=== PATIENT | male | born 1965 | race Caucasian/White ===

== ENCOUNTER 2017-01-04 18:21 | Observation (INO) | payer MEDICAID ==
[~2017-01-04] VITALS: Ht 190.5 cm; Wt 137.0 kg
[~2017-01-04 18:21] MED LIST: ARIP10TA13 PO; ARIP2TAB PO; BENZ1TAB61 PO; BENZ2AMP4; CITA10TA4 PO; CLON1TAB PO; HALO0.5T PO; HALO5AMP3 IM; IBUP800T PO; METF500T4 PO; OLAN10TA9 PO; OLAN2.5T3 PO; OLAN20TA5 PO; OLAN7.5T3 PO; PALI3TAB2 PO; QUET100T4 PO; RISP0.5T18 PO; RISP1TAB45 PO; RISP2TAB35 PO; RISP4TAB34 PO; SERT100T PO; SERT100T5 PO; SERT25TA PO; SIMV20TA3 PO; TRAZ100T15 PO; TRAZ150T68 PO; ZIPR20CA2 PO
[2017-01-04] MEDS ORDERED: CITA10TA8 PO (18:42)
[2017-01-04 19:09] LABS: DAU SCREEN DISCLAIMER
[2017-01-04 19:26] LABS: ACETAMINOPHEN < 2 mcg/mL (10-30)
[2017-01-04 20:54] LABS: HEMOGLOBIN 13.6 g/dL (13.7-18.0)
[2017-01-04 20:59] LABS: BLOOD UREA NITROGEN 12 mg/dL (7-18)
[2017-01-04] MEDS ORDERED: BISACODYL 10 MG SUPP PR PRN (22:30)
[2017-01-04] MEDS ORDERED: ONDANSETRON ODT 4 MG PO PRN (22:30)
[2017-01-04] MEDS ORDERED: DOCUSATE 100 MG CAPSULE PO PRN (22:30)
[2017-01-04] MEDS ORDERED: POLYETHYLENE GLYCOL 17 GM PACKET PO PRN (22:30)
[2017-01-04 22:37] VITALS: BP 150/78
[2017-01-04] MEDS: metFORMIN 500 MG TABLET PO SCH (23:00)
[2017-01-04] MEDS: TRAZODONE 150MG TABLET PO SCH (23:30)
[2017-01-04] MEDS: SIMVASTATIN 20 MG TABLET PO SCH (23:30)
[2017-01-05] MEDS: TRAZODONE 150MG TABLET PO SCH ×2 (02:07→20:27)
[2017-01-05] MEDS: SIMVASTATIN 20 MG TABLET PO SCH ×2 (02:08→20:27)
[2017-01-05 08:01] VITALS: BP 162/76
[2017-01-05] MEDS: OLANZAPINE 10 MG TABLET PO SCH (08:13)
[2017-01-05] MEDS ORDERED: TRAZODONE 150MG TABLET PO SCH ×2 (09:00→21:00)
[2017-01-05] MEDS ORDERED: HYDROCORTISONE CRM 0.5%, 30GM TP SCH (09:00)
[2017-01-05] MEDS ORDERED: IBUPROFEN 200 MG TABLET PO PRN (13:00)
[2017-01-05 19:18] VITALS: BP 151/76
[2017-01-05] MEDS: metFORMIN 500 MG TABLET PO SCH (20:26)
[2017-01-05] MEDS: HYDROCORTISONE OINT 0.5%, 30GM TP SCH (21:00)
[2017-01-05] MEDS ORDERED: SIMVASTATIN 20 MG TABLET PO SCH ×2 (21:00)
[2017-01-05] MEDS ORDERED: HYDROCORTISONE OINT 0.5%, 30GM TP SCH (21:00)
[2017-01-06 07:36] VITALS: BP 134/79
[2017-01-06] MEDS: HYDROCORTISONE OINT 0.5%, 30GM TP SCH ×2 (08:25→09:00)
[2017-01-06] MEDS: metFORMIN 500 MG TABLET PO SCH ×2 (08:25→16:42)
[2017-01-06] MEDS: OLANZAPINE 10 MG TABLET PO SCH (08:25)
[2017-01-06] MEDS ORDERED: LORazepam 2 MG/ML, 1ML IM ONE (09:00)
[2017-01-06] MEDS: LORazepam 2 MG/ML, 1ML IM PRN (16:58)
[2017-01-06 19:30] VITALS: BP 123/69
[2017-01-06] MEDS: TRAZODONE 150MG TABLET PO SCH (20:55)
[2017-01-06] MEDS: SIMVASTATIN 20 MG TABLET PO SCH (20:55)
[2017-01-07] MEDS: LORazepam 2 MG/ML, 1ML IM PRN ×2 (02:27→03:00)
[2017-01-07 07:21] VITALS: BP 152/85
[2017-01-07] MEDS: metFORMIN 500 MG TABLET PO SCH ×2 (07:55→16:44)
[2017-01-07] MEDS: OLANZAPINE 10 MG TABLET PO SCH (07:56)
[2017-01-07] MEDS: HYDROCORTISONE OINT 0.5%, 30GM TP SCH ×2 (07:56→19:58)
[2017-01-07] MEDS: LORazepam 1MG TABLET PO PRN (17:17)
[2017-01-07 18:58] VITALS: BP 141/89
[2017-01-07] MEDS: TRAZODONE 150MG TABLET PO SCH (19:54)
[2017-01-07] MEDS: SIMVASTATIN 20 MG TABLET PO SCH (19:54)
[2017-01-08 07:55] VITALS: BP 114/83
[2017-01-08] MEDS: OLANZAPINE 10 MG TABLET PO SCH (08:44)
[2017-01-08] MEDS: HYDROCORTISONE OINT 0.5%, 30GM TP SCH ×2 (08:44→20:27)
[2017-01-08] MEDS: metFORMIN 500 MG TABLET PO SCH ×2 (08:44→16:49)
[2017-01-08] MEDS: LORazepam 1MG TABLET PO PRN ×2 (08:54→20:26)
[2017-01-08 19:43] VITALS: BP 109/73
[2017-01-08] MEDS: SIMVASTATIN 20 MG TABLET PO SCH (20:27)
[2017-01-08] MEDS: TRAZODONE 150MG TABLET PO SCH (20:27)
[2017-01-09] MEDS: metFORMIN 500 MG TABLET PO SCH (08:03)
[2017-01-09] MEDS: HYDROCORTISONE OINT 0.5%, 30GM TP SCH (08:05)
[2017-01-09 08:10] VITALS: BP 151/94
[2017-01-09] MEDS: LORazepam 1MG TABLET PO PRN (08:12)
[2017-01-09] MEDS ORDERED: OLANZAPINE 10 MG TABLET PO SCH (09:00)
[2017-01-09] MEDS ORDERED: OLAN20TA3 PO (13:10)
== END 2017-01-09 13:35 | disposition home or self-care (01) ==
LOC: ED 21:49 → 3E 21:50 → ED 22:07 → 3E 01-07 08:41
PROVIDERS: ADMIT Internal Medicine; ATTEND Family Medicine
DX: R45.851 Suicidal ideations (principal); F25.9 Schizoaffective disorder, unspecified; F32.9 Major depressive disorder, single episode, unspecified; E78.5 Hyperlipidemia, unspecified; M54.9 Dorsalgia, unspecified; F17.210 Nicotine dependence, cigarettes, uncomplicated; F15.20 Other stimulant dependence, uncomplicated; F10.10 Alcohol abuse, uncomplicated; I10 Essential (primary) hypertension; Z80.7 Family history of other malignant neoplasms of lymphoid, hematopoietic and related tissues; Z81.1 Family history of alcohol abuse and dependence; Z81.8 Family history of other mental and behavioral disorders
CPT/HCPCS: 36415; 80048; 80307; 80329; 82040; 85025; 96372; 99285; G0378; J2060; G0480

== ENCOUNTER 2017-01-16 07:03 | Observation (INO) | payer MEDICAID ==
[~2017-01-16] VITALS: Ht 182.9 cm; Wt 154.5 kg
[~2017-01-16 07:03] MED LIST changes: +CITA10TA8 PO; +OLAN20TA3 PO
[2017-01-16 07:36] LABS: HEMOGLOBIN 15.1 g/dL (13.7-18.0)
[2017-01-16] MEDS ORDERED: PALI1.5T PO (07:41)
[2017-01-16 07:50] LABS: ASPARTATE AMINO TRANSFERASE 22 U/L (15-37); BLOOD UREA NITROGEN 12 mg/dL (7-18)
[2017-01-16 07:54] LABS: ACETAMINOPHEN < 2 mcg/mL (10-30)
[2017-01-16 09:29] LABS: DAU SCREEN DISCLAIMER
[2017-01-16] MEDS ORDERED: ONDANSETRON ODT 4 MG PO PRN (11:00)
[2017-01-16] MEDS ORDERED: TRAZODONE 150MG TABLET PO PRN (11:00)
[2017-01-16] MEDS ORDERED: DOCUSATE 100 MG CAPSULE PO PRN (11:00)
[2017-01-16] MEDS: NICOTINE 21 MG/24 HR PATCH.TD24 TD SCH (11:00)
[2017-01-16] MEDS ORDERED: BISACODYL 10 MG SUPP PR PRN (11:00)
[2017-01-16] MEDS ORDERED: POLYETHYLENE GLYCOL 17 GM PACKET PO PRN (11:00)
[2017-01-16] MEDS: OLANZAPINE 10 MG TABLET PO SCH (12:20)
[2017-01-16] MEDS: LORazepam 1MG TABLET PO PRN ×2 (13:19→20:22)
[2017-01-16 19:17] VITALS: BP 137/79
[2017-01-17 07:50] VITALS: BP 152/78
[2017-01-17] MEDS: OLANZAPINE 10 MG TABLET PO SCH (08:29)
[2017-01-17] MEDS: LORazepam 1MG TABLET PO PRN ×3 (08:33→19:58)
[2017-01-17] MEDS: NICOTINE 21 MG/24 HR PATCH.TD24 TD SCH (11:00)
[2017-01-17 19:05] VITALS: BP 142/86
[2017-01-17] MEDS: ACETAMINOPHEN 325 MG TABLET PO PRN (19:09)
[2017-01-18 07:56] VITALS: BP 142/82
[2017-01-18] MEDS: OLANZAPINE 10 MG TABLET PO SCH ×2 (08:40→20:19)
[2017-01-18] MEDS: LORazepam 1MG TABLET PO PRN ×3 (08:48→21:19)
[2017-01-18] MEDS: NICOTINE 21 MG/24 HR PATCH.TD24 TD SCH (08:49)
[2017-01-18] MEDS: QUETIAPINE 25MG TABLET PO PRN ×3 (09:59→21:19)
[2017-01-18] MEDS: PLEASE ENTER ALLERGIES MC SCH ×6 (10:30→15:23)
[2017-01-18] MEDS ORDERED: LORazepam 1MG TABLET PO ONE (10:30)
[2017-01-18 19:28] VITALS: BP 145/98
[2017-01-19 08:20] VITALS: BP 120/83
[2017-01-19] MEDS: LORazepam 1MG TABLET PO PRN ×3 (10:30→18:29)
[2017-01-19] MEDS: QUETIAPINE 25MG TABLET PO PRN ×3 (10:34→18:29)
[2017-01-19] MEDS: NICOTINE 21 MG/24 HR PATCH.TD24 TD SCH (10:57)
[2017-01-19 19:24] VITALS: BP 128/84
[2017-01-19] MEDS: OLANZAPINE 10 MG TABLET PO SCH (20:48)
[2017-01-19] MEDS: TRAZODONE 50MG TABLET PO PRN (20:49)
[2017-01-20 07:50] VITALS: BP 142/82
[2017-01-20] MEDS: LORazepam 1MG TABLET PO PRN ×3 (08:23→19:27)
[2017-01-20] MEDS: NICOTINE 21 MG/24 HR PATCH.TD24 TD SCH (11:00)
[2017-01-20] MEDS: QUETIAPINE 25MG TABLET PO PRN ×2 (13:04→19:27)
[2017-01-20 19:44] VITALS: BP 137/87
[2017-01-20] MEDS: OLANZAPINE 10 MG TABLET PO SCH (20:16)
[2017-01-20] MEDS: TRAZODONE 50MG TABLET PO PRN (20:16)
[2017-01-21 08:15] VITALS: BP 146/80
[2017-01-21] MEDS: LORazepam 1MG TABLET PO PRN ×2 (10:49→15:38)
[2017-01-21] MEDS: QUETIAPINE 25MG TABLET PO PRN (10:49)
[2017-01-21] MEDS: ACETAMINOPHEN 325 MG TABLET PO PRN (10:49)
[2017-01-21] MEDS: NICOTINE 21 MG/24 HR PATCH.TD24 TD SCH (10:50)
[2017-01-21 19:38] VITALS: BP 128/84
[2017-01-21] MEDS: TRAZODONE 50MG TABLET PO PRN (20:10)
[2017-01-21] MEDS: OLANZAPINE 10 MG TABLET PO SCH (20:11)
[2017-01-22 07:15] VITALS: BP 128/86
[2017-01-22] MEDS: LORazepam 1MG TABLET PO PRN (09:27)
[2017-01-22] MEDS: QUETIAPINE 25MG TABLET PO PRN (09:27)
== END 2017-01-22 10:58 ==
LOC: ED 07:54 → EDIP 09:41 → 3E 11:24
DX: R45.851 Suicidal ideations (principal); R45.850 Homicidal ideations; F31.9 Bipolar disorder, unspecified; E11.9 Type 2 diabetes mellitus without complications; E66.01 Morbid (severe) obesity due to excess calories; E78.5 Hyperlipidemia, unspecified; F17.210 Nicotine dependence, cigarettes, uncomplicated; I10 Essential (primary) hypertension; F25.9 Schizoaffective disorder, unspecified; F41.1 Generalized anxiety disorder; Z91.19 Patient's noncompliance with other medical treatment and regimen; Z91.14 Patient's other noncompliance with medication regimen
CPT/HCPCS: 36415; 80053; 80307; 80329; 81003; 85025; 99285; G0378; G0480

== ENCOUNTER 2017-02-23 20:13 | Emergency (ER) | payer MEDICAID ==
[~2017-02-23] VITALS: Ht 190.5 cm; Wt 132.5 kg
[~2017-02-23 20:13] MED LIST changes: +PALI1.5T PO
[2017-02-23 20:20] VITALS: BP 145/79
== END 2017-02-23 20:55 | disposition home or self-care (01) ==
LOC: ED 20:30
DX: F29 Unspecified psychosis not due to a substance or known physiological condition (principal); F25.9 Schizoaffective disorder, unspecified; I10 Essential (primary) hypertension; Z88.8 Allergy status to other drugs, medicaments and biological substances
CPT/HCPCS: 99284

== ENCOUNTER 2017-07-23 21:16 | Emergency (ER) | payer MEDICAID ==
[~2017-07-23] VITALS: Ht 160 cm; Wt 125.0 kg
[~2017-07-23 21:16] MED LIST changes: -ARIP10TA13 PO; +ARIP10TA33 PO; -ARIP2TAB PO; +ARIP2TAB2 PO; +IBUP-1223 PO; -IBUP800T PO; -RISP0.5T18 PO; +RISP0.5T24 PO; +TRAZ150T62 PO; -TRAZ150T68 PO
[2017-07-23] MEDS ORDERED: QUET100T4 PO (21:48)
[2017-07-23 21:51] LABS: HEMOGLOBIN 13.8 g/dL (13.7-18.0); WHITE BLOOD COUNT 10.1 x10^3/uL (3.4-10)
[2017-07-23] MEDS ORDERED: ZIPRASIDONE 20 MG INJ IM ONE (22:00)
[2017-07-23 22:04] LABS: ASPARTATE AMINO TRANSFERASE 22 U/L (15-37); BLOOD UREA NITROGEN 13 mg/dL (7-18)
[2017-07-23 22:07] LABS: ACETAMINOPHEN < 2 mcg/mL (10-30)
[2017-07-23] MEDS ORDERED: QUETIAPINE 100MG TABLET PO STA (22:17)
[2017-07-23 23:24] VITALS: BP 158/92
== END 2017-07-23 23:31 | disposition home or self-care (01) ==
LOC: ED 23:25
DX: F25.1 Schizoaffective disorder, depressive type (principal); I10 Essential (primary) hypertension; F32.0 Major depressive disorder, single episode, mild
CPT/HCPCS: 36415; 80053; 80307; 80329; 85025; 99284; G0479; G0480

== ENCOUNTER 2017-11-26 19:17 | Emergency (ER) | payer MEDICAID ==
[~2017-11-26] VITALS: Ht 188 cm; Wt 128.0 kg
[2017-11-26] MEDS ORDERED: LORazepam 1MG TABLET ONE (19:43)
[2017-11-26 20:00] LABS: BASOPHILS # (AUTO) 0.05 x10^3/uL (0-0.1); BASOPHILS % (AUTO) 0 % (0-1); EOSINOPHILS # (AUTO) 0.46 x10^3/uL (0-0.4); EOSINOPHILS % (AUTO) 4 % (1-7); LYMPHOCYTES # (AUTO) 2.91 x10^3/uL (1-3.4); LYMPHOCYTES % (AUTO) 26 % (22-44); MD NO; MEAN CORPUSCULAR HEMOGLOBIN 31.1 pg (27.5-34.5); MEAN CORPUSCULAR HGB CONC 34.1 g/dL (33.2-36.2); MONOCYTES # (AUTO) 0.95 x10^3/uL (0.2-0.8); MONOCYTES % (AUTO) 8 % (2-9); NEUTROPHILS # (AUTO) 6.88 x10^3/uL (1.8-6.8); NEUTROPHILS % (AUTO) 61 % (42-75); PLATELET COUNT 277 x10^3/uL (130-400); RED BLOOD COUNT 5.01 x10^6/uL (4.38-5.82); RED CELL DISTRIBUTION WIDTH 14.3 % (9.4-14.8)
[2017-11-26] MEDS ORDERED: LORazepam 1MG TABLET PO ONE (20:00)
[2017-11-26 20:03] LABS: ALANINE AMINOTRANSFERASE 50 U/L (12-78); ALBUMIN 3.5 g/dL (3.4-5.0); ANION GAP 10 mmol/L (5-15); CALCIUM 8.3 mg/dL (8.5-10.1); CHLORIDE 108 mmol/L (98-107); CREATININE 1.09 mg/dL (0.7-1.3); SALICYLATE LEVEL 2.1 mg/dL (2.8-20.0)
[2017-11-26 20:07] LABS: ACETAMINOPHEN < 2 mcg/mL (10-30)
[2017-11-26 20:08] LABS: ALKALINE PHOSPHATASE 83 U/L (45-117); BILIRUBIN,TOTAL 0.3 mg/dL (0.2-1.0); TOTAL PROTEIN 7.3 g/dL (6.4-8.2)
[2017-11-26 21:05] LABS: AMPHETAMINE SCREEN, URINE Negative (Negative); BARBITURATE SCREEN, URINE Negative (Negative); BENZODIAZEPINE SCREEN, URINE Negative (Negative); CANNABINOID SCREEN, URINE Negative (Negative); COCAINE SCREEN, URINE Negative (Negative); METHADONE SCREEN, URINE Negative (Negative); OPIATE SCREEN, URINE Negative (Negative)
[2017-11-27 00:26] VITALS: BP 130/71
== END 2017-11-27 06:06 | disposition home or self-care (01) ==
LOC: ED 23:59
DX: R45.851 Suicidal ideations (principal); F32.9 Major depressive disorder, single episode, unspecified; Z72.9 Problem related to lifestyle, unspecified; Z75.9 Unspecified problem related to medical facilities and other health care; Z63.8 Other specified problems related to primary support group
CPT/HCPCS: 36415; 80053; 80307; 80329; 85025; 99284; G0480

== ENCOUNTER 2018-06-06 04:36 | Observation (INO) | payer MEDICAID ==
[~2018-06-06] VITALS: Ht 190.5 cm; Wt 127.3 kg
[~2018-06-06 04:36] MED LIST changes: +METF500T17 PO; -METF500T4 PO; +TRAZ-137 PO; -TRAZ100T15 PO
[2018-06-06] MEDS ORDERED: ZIPRASIDONE 20 MG INJ IM ONE ×2 (05:30→05:33)
[2018-06-06] MEDS ORDERED: ARIP2TAB2 PO (06:01)
[2018-06-06 06:03] LABS: BASOPHILS # (AUTO) 0.06 x10^3/uL (0-0.1); BASOPHILS % (AUTO) 1 % (0-1); EOSINOPHILS # (AUTO) 0.66 x10^3/uL (0-0.4); EOSINOPHILS % (AUTO) 7 % (1-7); LYMPHOCYTES # (AUTO) 2.35 x10^3/uL (1-3.4); LYMPHOCYTES % (AUTO) 25 % (22-44); MD NO; MEAN CORPUSCULAR HEMOGLOBIN 31.1 pg (27.5-34.5); MEAN CORPUSCULAR HGB CONC 34.6 g/dL (33.2-36.2); MEAN CORPUSCULAR VOLUME 90.1 fL (81-97); MEAN PLATELET VOLUME 8.9 fL (7.4-10.4); MONOCYTES % (AUTO) 7 % (2-9); NEUTROPHILS # (AUTO) 5.75 x10^3/uL (1.8-6.8); NEUTROPHILS % (AUTO) 60 % (42-75); PLATELET COUNT 247 x10^3/uL (130-400); RED BLOOD COUNT 4.44 x10^6/uL (4.38-5.82); RED CELL DISTRIBUTION WIDTH 13.8 % (9.4-14.8)
[2018-06-06 06:12] LABS: ALBUMIN 2.9 g/dL (3.4-5.0); ANION GAP 7 mmol/L (5-15); CALCIUM 8.3 mg/dL (8.5-10.1); CHLORIDE 109 mmol/L (98-107); SALICYLATE LEVEL 1.7 mg/dL (2.8-20.0)
[2018-06-06 06:15] LABS: ALANINE AMINOTRANSFERASE 26 U/L (12-78); ALKALINE PHOSPHATASE 88 U/L (45-117); BILIRUBIN,TOTAL 0.2 mg/dL (0.2-1.0); CREATININE 0.93 mg/dL (0.7-1.3); TOTAL PROTEIN 6.4 g/dL (6.4-8.2)
[2018-06-06 06:18] LABS: ACETAMINOPHEN < 2 mcg/mL (10-30)
[2018-06-06 06:45] LABS: AMPHETAMINE SCREEN, URINE Positive (Negative); BARBITURATE SCREEN, URINE Negative (Negative); BENZODIAZEPINE SCREEN, URINE Negative (Negative); CANNABINOID SCREEN, URINE Negative (Negative); COCAINE SCREEN, URINE Negative (Negative); METHADONE SCREEN, URINE Negative (Negative); OPIATE SCREEN, URINE Negative (Negative)
[2018-06-06] MEDS ORDERED: BISACODYL 10 MG SUPP PR PRN (11:30)
[2018-06-06] MEDS ORDERED: ONDANSETRON ODT 4 MG PO PRN (11:30)
[2018-06-06] MEDS ORDERED: ACETAMINOPHEN 325 MG TABLET PO PRN (11:30)
[2018-06-06] MEDS ORDERED: DOCUSATE 100 MG CAPSULE PO PRN (11:30)
[2018-06-06 12:30] LABS: FREE T4 (FREE THYROXINE) 0.95 ng/dL (0.76-1.46); THYROID STIMULATING HORMONE 2.95 mIU/L (0.358-3.740)
[2018-06-06] MEDS ORDERED: NICOTINE 14MG/24 HR PATCH.TD24 ONE (12:38)
[2018-06-06] MEDS: NICOTINE 14MG/24 HR PATCH.TD24 TD SCH (16:22)
[2018-06-06 21:59] VITALS: BP 142/83
[2018-06-07] MEDS: HALOPERIDOL 5 MG TABLET PO PRN ×4 (07:39→20:21)
[2018-06-07 07:43] VITALS: BP 131/87
[2018-06-07 11:41] VITALS: BP 134/84
[2018-06-07] MEDS: NICOTINE 14MG/24 HR PATCH.TD24 TD SCH (11:50)
[2018-06-07 16:30] VITALS: BP 144/94
[2018-06-07 19:31] VITALS: BP 123/81
[2018-06-07] MEDS: TRAZODONE 50MG TABLET PO PRN (20:25)
[2018-06-08 06:10] VITALS: BP 131/91
[2018-06-08 07:15] VITALS: BP 116/72
[2018-06-08] MEDS: NICOTINE 14MG/24 HR PATCH.TD24 TD SCH ×3 (11:00→18:26)
[2018-06-08] MEDS: HALOPERIDOL 5 MG TABLET PO PRN ×2 (11:12→18:11)
[2018-06-08 19:22] VITALS: BP 131/84
[2018-06-08] MEDS: TRAZODONE 50MG TABLET PO PRN (21:10)
[2018-06-09] MEDS: TRAZODONE 50MG TABLET PO PRN ×3 (02:40→22:50)
[2018-06-09 06:30] VITALS: BP 120/73
[2018-06-09 08:07] VITALS: BP 138/76
[2018-06-09] MEDS: HALOPERIDOL 5 MG TABLET PO PRN (09:24)
[2018-06-09 19:28] VITALS: BP 136/82
[2018-06-10 05:17] VITALS: BP 123/83
[2018-06-10] MEDS: HALOPERIDOL 5 MG TABLET PO PRN ×2 (05:18→13:11)
[2018-06-10 07:48] VITALS: BP 129/85
[2018-06-10] MEDS: NICOTINE 14MG/24 HR PATCH.TD24 TD SCH ×3 (11:06→18:02)
[2018-06-10 16:25] VITALS: BP 145/87
[2018-06-10 19:50] VITALS: BP 136/79
[2018-06-10] MEDS: TRAZODONE 50MG TABLET PO PRN (21:03)
[2018-06-11] MEDS: HALOPERIDOL 5 MG TABLET PO PRN ×2 (04:05→15:56)
[2018-06-11 07:49] VITALS: BP 116/71
[2018-06-11] MEDS: NICOTINE 14MG/24 HR PATCH.TD24 TD SCH (18:17)
[2018-06-11 19:44] VITALS: BP 130/80
[2018-06-11] MEDS: BENZTROPINE 1 MG TABLET PO SCH (20:10)
[2018-06-11] MEDS: OLANZAPINE 10 MG TABLET PO SCH (20:11)
[2018-06-11] MEDS: TRAZODONE 150MG TABLET PO PRN (20:11)
[2018-06-12] MEDS: BENZTROPINE 1 MG TABLET PO SCH ×2 (07:50→20:08)
[2018-06-12] MEDS: SERTRALINE 50MG TABLET PO SCH (07:50)
[2018-06-12] MEDS: OLANZAPINE 10 MG TABLET PO SCH (07:51)
[2018-06-12 07:55] VITALS: BP 129/78
[2018-06-12 11:16] VITALS: BP 133/75
[2018-06-12] MEDS: HALOPERIDOL 5 MG TABLET PO PRN ×2 (13:50→18:50)
[2018-06-12 16:15] VITALS: BP 159/97
[2018-06-12] MEDS: NICOTINE 14MG/24 HR PATCH.TD24 TD SCH (18:00)
[2018-06-12 19:32] VITALS: BP 152/79
[2018-06-12] MEDS: TRAZODONE 150MG TABLET PO PRN (20:39)
[2018-06-13 07:53] VITALS: BP 156/70
[2018-06-13] MEDS: SERTRALINE 50MG TABLET PO SCH (08:39)
[2018-06-13] MEDS: BENZTROPINE 1 MG TABLET PO SCH (08:39)
[2018-06-13] MEDS: HALOPERIDOL 5 MG TABLET PO PRN (11:03)
[2018-06-13] MEDS ORDERED: SERT50TA5 PO (14:36)
[2018-06-13] MEDS ORDERED: BENZ1TAB61 PO (14:36)
[2018-06-13] MEDS ORDERED: OLAN10TA9 PO (14:36)
[2018-06-13] MEDS ORDERED: HYDR-3341 PO (14:36)
[2018-06-13] MEDS ORDERED: OLANZAPINE 10 MG TABLET PO SCH (21:00)
== END 2018-06-13 14:48 | disposition home or self-care (01) ==
LOC: ED 06:47 → EDIP 06:48 → ED 06:57 → 2N 21:54
PROVIDERS: ADMIT Hospitalist; ATTEND Hospitalist
DX: R45.851 Suicidal ideations (principal); E78.5 Hyperlipidemia, unspecified; F31.9 Bipolar disorder, unspecified; I10 Essential (primary) hypertension; F15.10 Other stimulant abuse, uncomplicated; G89.29 Other chronic pain; M54.5 Low back pain; G47.00 Insomnia, unspecified; Z72.0 Tobacco use; Z91.5 Personal history of self-harm; Z79.899 Other long term (current) drug therapy
CPT/HCPCS: 36415; 80053; 80307; 80329; 84439; 84443; 85025; 96372; 99285; G0378; J3486; G0480

== ENCOUNTER 2018-07-01 18:12 | Observation (INO) | payer MEDICAID ==
[~2018-07-01] VITALS: Ht 190.5 cm; Wt 129.5 kg
[~2018-07-01 18:12] MED LIST changes: +HYDR-3341 PO; +SERT50TA5 PO
[2018-07-01] MEDS ORDERED: Abilify PO (18:34)
[2018-07-01] MEDS ORDERED: Trazodone PO (18:34)
[2018-07-01] MEDS ORDERED: Seroquel PO (18:34)
[2018-07-01] MEDS ORDERED: Lorazepam PO (18:34)
[2018-07-01 19:21] LABS: BASOPHILS % (AUTO) 0 % (0-1); EOSINOPHILS # (AUTO) 0.21 x10^3/uL (0-0.4); EOSINOPHILS % (AUTO) 2 % (1-7); LYMPHOCYTES # (AUTO) 0.34 x10^3/uL (1-3.4); LYMPHOCYTES % (AUTO) 3 % (22-44); MD NO; MEAN CORPUSCULAR HEMOGLOBIN 31.4 pg (27.5-34.5); MEAN CORPUSCULAR HGB CONC 34.3 g/dL (33.2-36.2); MEAN CORPUSCULAR VOLUME 91.4 fL (81-97); MEAN PLATELET VOLUME 8.9 fL (7.4-10.4); MONOCYTES # (AUTO) 0.36 x10^3/uL (0.2-0.8); MONOCYTES % (AUTO) 4 % (2-9); NEUTROPHILS # (AUTO) 9.02 x10^3/uL (1.8-6.8); NEUTROPHILS % (AUTO) 91 % (42-75); PLATELET COUNT 178 x10^3/uL (130-400); RED BLOOD COUNT 4.69 x10^6/uL (4.38-5.82); RED CELL DISTRIBUTION WIDTH 14.6 % (9.4-14.8)
[2018-07-01 19:30] LABS: ALBUMIN 3.2 g/dL (3.4-5.0); ANION GAP 10 mmol/L (5-15); CALCIUM 7.9 mg/dL (8.5-10.1); CHLORIDE 106 mmol/L (98-107); CREATININE 1.12 mg/dL (0.7-1.3)
[2018-07-01 19:33] LABS: AMPHETAMINE SCREEN, URINE Negative (Negative); BARBITURATE SCREEN, URINE Negative (Negative); BENZODIAZEPINE SCREEN, URINE Negative (Negative); CANNABINOID SCREEN, URINE Negative (Negative); COCAINE SCREEN, URINE Negative (Negative); METHADONE SCREEN, URINE Negative (Negative); OPIATE SCREEN, URINE Negative (Negative)
[2018-07-01 19:39] LABS: ACETAMINOPHEN < 2 mcg/mL (10-30)
[2018-07-02] MEDS ORDERED: BENZTROPINE 1 MG TABLET PO STA (00:54)
[2018-07-02] MEDS ORDERED: OLANZAPINE 10 MG INJ IM STA (00:54)
[2018-07-02] MEDS ORDERED: BENZTROPINE 1 MG TABLET ONE (01:05)
[2018-07-02] MEDS ORDERED: ONDANSETRON ODT 4 MG PO PRN (02:30)
[2018-07-02] MEDS ORDERED: DOCUSATE 100 MG CAPSULE PO PRN (02:30)
[2018-07-02 02:54] LABS: FREE T4 (FREE THYROXINE) 0.88 ng/dL (0.76-1.46); THYROID STIMULATING HORMONE 1.3 mIU/L (0.358-3.740)
[2018-07-02 03:11] VITALS: BP 127/79
[2018-07-02 08:00] VITALS: BP 116/74
[2018-07-02] MEDS: OLANZAPINE 5 MG TABLET PO PRN (13:20)
[2018-07-02] MEDS: BENZTROPINE 1 MG TABLET PO PRN (13:20)
[2018-07-02 19:42] VITALS: BP 132/74
[2018-07-02] MEDS: TRAZODONE 150MG TABLET PO PRN (21:00)
[2018-07-02] MEDS: QUETIAPINE 100MG TABLET PO SCH (21:01)
[2018-07-03 08:00] VITALS: BP 106/66
[2018-07-03] MEDS: OLANZAPINE 5 MG TABLET PO PRN ×2 (12:11→19:18)
[2018-07-03 19:35] VITALS: BP 126/60
[2018-07-03] MEDS: TRAZODONE 150MG TABLET PO PRN (20:02)
[2018-07-03] MEDS: QUETIAPINE 100MG TABLET PO SCH (20:02)
[2018-07-04 07:56] VITALS: BP 114/68
[2018-07-04] MEDS: OLANZAPINE 5 MG TABLET PO PRN ×2 (11:56→17:55)
[2018-07-04 19:32] VITALS: BP 123/70
[2018-07-04] MEDS: QUETIAPINE 100MG TABLET PO SCH (20:14)
[2018-07-04] MEDS: TRAZODONE 150MG TABLET PO PRN (20:16)
[2018-07-05 07:55] VITALS: BP 128/84
[2018-07-05] MEDS: OLANZAPINE 5 MG TABLET PO PRN (11:39)
[2018-07-05 19:24] VITALS: BP 129/86
[2018-07-05] MEDS: TRAZODONE 150MG TABLET PO PRN (20:10)
[2018-07-05] MEDS: QUETIAPINE 100MG TABLET PO SCH (20:11)
[2018-07-06 08:19] VITALS: BP 140/86
[2018-07-06 19:33] VITALS: BP 132/81
[2018-07-06] MEDS: TRAZODONE 150MG TABLET PO PRN (20:24)
[2018-07-06] MEDS: QUETIAPINE 100MG TABLET PO SCH (20:25)
[2018-07-07 08:25] VITALS: BP 121/77
[2018-07-07] MEDS: OLANZAPINE 5 MG TABLET PO PRN (09:25)
[2018-07-07] MEDS: ACETAMINOPHEN 325 MG TABLET PO PRN (18:28)
[2018-07-07 19:39] VITALS: BP 126/76
[2018-07-07] MEDS: QUETIAPINE 100MG TABLET PO SCH (20:19)
[2018-07-07] MEDS: TRAZODONE 150MG TABLET PO PRN (20:19)
[2018-07-08 08:15] VITALS: BP 114/68
[2018-07-08] MEDS: OLANZAPINE 5 MG TABLET PO PRN ×2 (09:26→20:16)
[2018-07-08] MEDS: OLANZAPINE 10 MG INJ IM PRN (15:25)
[2018-07-08 19:40] VITALS: BP 118/84
[2018-07-08] MEDS: QUETIAPINE 100MG TABLET PO SCH (20:15)
[2018-07-08] MEDS: TRAZODONE 150MG TABLET PO PRN (20:16)
[2018-07-09 08:02] VITALS: BP 117/72
[2018-07-09] MEDS: ACETAMINOPHEN 325 MG TABLET PO PRN (08:06)
[2018-07-09] MEDS: OLANZAPINE 5 MG TABLET PO PRN (11:32)
[2018-07-09 19:59] VITALS: BP 142/85
[2018-07-09] MEDS: QUETIAPINE 100MG TABLET PO SCH (20:13)
[2018-07-09] MEDS: TRAZODONE 150MG TABLET PO PRN (20:17)
[2018-07-10 08:22] VITALS: BP 120/75
[2018-07-10] MEDS: OLANZAPINE 5 MG TABLET PO PRN (12:36)
[2018-07-10] MEDS: BENZTROPINE 1 MG TABLET PO PRN (16:09)
[2018-07-10] MEDS: OLANZAPINE 10 MG INJ IM PRN (19:29)
[2018-07-10 19:53] VITALS: BP 128/89
[2018-07-10] MEDS: QUETIAPINE 100MG TABLET PO SCH (20:06)
[2018-07-10] MEDS: TRAZODONE 150MG TABLET PO PRN (20:06)
[2018-07-11] MEDS: OLANZAPINE 5 MG TABLET PO PRN (09:57)
[2018-07-11 10:40] VITALS: BP_SYST 112
== END 2018-07-11 11:27 | disposition home or self-care (01) ==
LOC: ED 20:25 → EDIP 07-02 01:01 → INTOOBSV 07-02 01:01 → 2N 07-02 03:04
PROVIDERS: ADMIT Internal Medicine; ATTEND Internal Medicine
DX: R45.851 Suicidal ideations (principal); R45.850 Homicidal ideations; E78.5 Hyperlipidemia, unspecified; F10.10 Alcohol abuse, uncomplicated; F17.210 Nicotine dependence, cigarettes, uncomplicated; F31.9 Bipolar disorder, unspecified; F41.9 Anxiety disorder, unspecified; I10 Essential (primary) hypertension; Z59.0 Homelessness; Z80.7 Family history of other malignant neoplasms of lymphoid, hematopoietic and related tissues
CPT/HCPCS: 36415; 80048; 80307; 80329; 82040; 82962; 84439; 84443; 85025; 96372; 99285; G0378; Q0177; G0480

== ENCOUNTER 2018-07-15 19:07 | Observation (INO) | payer MEDICAID ==
[~2018-07-15] VITALS: Ht 190.5 cm; Wt 131.0 kg
[~2018-07-15 19:07] MED LIST changes: +Abilify PO; +Lorazepam PO; +Seroquel PO; +Trazodone PO
[2018-07-15] MEDS ORDERED: OLAN10VI PO (19:19)
[2018-07-15 20:09] LABS: BASOPHILS # (AUTO) 0.05 x10^3/uL (0-0.1); BASOPHILS % (AUTO) 0 % (0-1); EOSINOPHILS % (AUTO) 4 % (1-7); LYMPHOCYTES # (AUTO) 2.65 x10^3/uL (1-3.4); LYMPHOCYTES % (AUTO) 24 % (22-44); MD NO; MEAN CORPUSCULAR HEMOGLOBIN 31.6 pg (27.5-34.5); MEAN CORPUSCULAR HGB CONC 34.6 g/dL (33.2-36.2); MEAN CORPUSCULAR VOLUME 91.3 fL (81-97); MONOCYTES # (AUTO) 0.86 x10^3/uL (0.2-0.8); MONOCYTES % (AUTO) 8 % (2-9); NEUTROPHILS # (AUTO) 7.11 x10^3/uL (1.8-6.8); NEUTROPHILS % (AUTO) 64 % (42-75); PLATELET COUNT 273 x10^3/uL (130-400); RED BLOOD COUNT 4.71 x10^6/uL (4.38-5.82); RED CELL DISTRIBUTION WIDTH 14.3 % (9.4-14.8)
[2018-07-15 20:10] LABS: AMPHETAMINE SCREEN, URINE Positive (Negative); BARBITURATE SCREEN, URINE Negative (Negative); BENZODIAZEPINE SCREEN, URINE Negative (Negative); CANNABINOID SCREEN, URINE Negative (Negative); COCAINE SCREEN, URINE Negative (Negative); METHADONE SCREEN, URINE Negative (Negative); OPIATE SCREEN, URINE Negative (Negative)
[2018-07-15 20:18] LABS: ALBUMIN 3.2 g/dL (3.4-5.0); ANION GAP 8 mmol/L (5-15); CALCIUM 8.1 mg/dL (8.5-10.1); CHLORIDE 109 mmol/L (98-107); CREATININE 0.96 mg/dL (0.7-1.3); SALICYLATE LEVEL 2.2 mg/dL (2.8-20.0)
[2018-07-15 20:19] LABS: ACETAMINOPHEN < 2 mcg/mL (10-30)
[2018-07-16] MEDS ORDERED: DOCUSATE 100 MG CAPSULE PO PRN (05:30)
[2018-07-16] MEDS ORDERED: OLANZAPINE 5 MG TABLET PO PRN (05:30)
[2018-07-16] MEDS ORDERED: OLANZAPINE 10 MG INJ IM PRN (05:30)
[2018-07-16 07:36] VITALS: BP 134/90
[2018-07-16] MEDS: OLANZAPINE 5 MG TABLET PO SCH ×2 (09:37→20:44)
[2018-07-16 20:22] VITALS: BP 159/78
[2018-07-17 08:15] VITALS: BP 145/95
[2018-07-17] MEDS: OLANZAPINE 5 MG TABLET PO SCH (08:48)
== END 2018-07-17 14:25 ==
LOC: ED 23:12 → EDIP 07-16 00:34 → 2N 07-16 05:39
PROVIDERS: ADMIT Internal Medicine; ATTEND Internal Medicine
DX: R45.851 Suicidal ideations (principal); F25.9 Schizoaffective disorder, unspecified; F41.9 Anxiety disorder, unspecified; R45.850 Homicidal ideations; F15.10 Other stimulant abuse, uncomplicated; F17.210 Nicotine dependence, cigarettes, uncomplicated; F31.9 Bipolar disorder, unspecified; I10 Essential (primary) hypertension; Z80.7 Family history of other malignant neoplasms of lymphoid, hematopoietic and related tissues; Z82.49 Family history of ischemic heart disease and other diseases of the circulatory system; Z91.5 Personal history of self-harm
CPT/HCPCS: 36415; 80048; 80307; 80329; 82040; 85025; 99285; G0378; G0480

== ENCOUNTER 2018-07-17 12:25 | Inpatient (IN) | payer MEDICAID ==
[~2018-07-17] VITALS: Ht 188 cm; Wt 131.4 kg
[~2018-07-17 12:25] MED LIST changes: +OLAN10VI PO
[2018-07-17] MEDS ORDERED: ACETAMINOPHEN 325 MG TABLET PO PRN (15:00)
[2018-07-17] MEDS ORDERED: DOCUSATE 100 MG CAPSULE PO PRN (15:00)
[2018-07-17] MEDS ORDERED: POLYETHYLENE GLYCOL 17 GM PACKET PO PRN (15:00)
[2018-07-17 15:27] VITALS: BP 138/80
[2018-07-17] MEDS ORDERED: PLEASE ENTER HEIGHT AND WEIGHT MC SCH (15:30)
[2018-07-17] MEDS ORDERED: OLANZAPINE 5 MG TABLET ONE (15:54)
[2018-07-17 16:00] VITALS: BP 138/80
[2018-07-17] MEDS ORDERED: OLANZAPINE 5 MG TABLET PO ONE (16:00)
[2018-07-17 17:00] LABS: CHOL/HDL RATIO 5.4; FREE T4 (FREE THYROXINE) 0.96 ng/dL (0.76-1.46); LDL/HDL RATIO 2.5 (0.5-3.0)
[2018-07-17] MEDS: HYDROXYZINE PAMOATE 50MG CAP PO PRN (17:32)
[2018-07-17 20:08] VITALS: BP 144/89
[2018-07-17] MEDS: OLANZAPINE 10 MG TABLET PO SCH (20:23)
[2018-07-17] MEDS: TRAZODONE 100MG TABLET PO PRN (20:23)
[2018-07-17] MEDS ORDERED: QUETIAPINE 100MG TABLET PO SCH (21:00)
[2018-07-18 07:58] VITALS: BP 106/68
[2018-07-18] MEDS: HYDROXYZINE PAMOATE 50MG CAP PO PRN ×2 (09:41→16:59)
[2018-07-18 19:22] VITALS: BP 125/83
[2018-07-18] MEDS: TRAZODONE 100MG TABLET PO PRN (19:43)
[2018-07-18] MEDS: OLANZAPINE 10 MG TABLET PO SCH (19:43)
[2018-07-18] MEDS: QUETIAPINE 100MG TABLET PO SCH (19:43)
[2018-07-19 07:51] VITALS: BP 135/80
[2018-07-19] MEDS: HYDROXYZINE PAMOATE 50MG CAP PO PRN ×2 (11:07→15:55)
[2018-07-19] MEDS: LORazepam 0.5MG TABLET PO PRN (18:19)
[2018-07-19 19:32] VITALS: BP 137/83
[2018-07-19] MEDS: QUETIAPINE 100MG TABLET PO SCH (20:05)
[2018-07-19] MEDS: OLANZAPINE 10 MG TABLET PO SCH (20:05)
[2018-07-19] MEDS: TRAZODONE 100MG TABLET PO PRN (20:05)
[2018-07-20 07:50] VITALS: BP 126/88
[2018-07-20] MEDS: LORazepam 0.5MG TABLET PO PRN ×2 (10:23→20:14)
[2018-07-20] MEDS: OLANZAPINE 5 MG TABLET PO PRN (14:32)
[2018-07-20 19:58] VITALS: BP 130/70
[2018-07-20] MEDS: TRAZODONE 100MG TABLET PO PRN (20:11)
[2018-07-20] MEDS: QUETIAPINE 100MG TABLET PO SCH (20:11)
[2018-07-20] MEDS: OLANZAPINE 10 MG TABLET PO SCH (20:11)
[2018-07-21 07:41] VITALS: BP 131/85
[2018-07-21] MEDS: LORazepam 0.5MG TABLET PO PRN (11:42)
[2018-07-21] MEDS: HYDROXYZINE PAMOATE 50MG CAP PO PRN (15:51)
[2018-07-21] MEDS: OLANZAPINE 5 MG TABLET PO PRN (15:51)
[2018-07-21 19:59] VITALS: BP 128/77
[2018-07-21] MEDS: QUETIAPINE 100MG TABLET PO SCH (20:46)
[2018-07-21] MEDS: OLANZAPINE 10 MG TABLET PO SCH (20:46)
[2018-07-21] MEDS: TRAZODONE 100MG TABLET PO PRN (20:46)
[2018-07-22 07:45] VITALS: BP 111/73
[2018-07-22] MEDS: LORazepam 0.5MG TABLET PO PRN ×2 (11:19→20:43)
[2018-07-22] MEDS: HYDROXYZINE PAMOATE 50MG CAP PO PRN (14:46)
[2018-07-22] MEDS: OLANZAPINE 5 MG TABLET PO PRN (14:51)
[2018-07-22 19:10] VITALS: BP 120/79
[2018-07-22] MEDS: QUETIAPINE 100MG TABLET PO SCH (20:42)
[2018-07-22] MEDS: TRAZODONE 100MG TABLET PO PRN (20:43)
[2018-07-22] MEDS: OLANZAPINE 10 MG TABLET PO SCH (20:43)
[2018-07-23 07:54] VITALS: BP 111/72
[2018-07-23] MEDS: LORazepam 0.5MG TABLET PO PRN ×2 (13:11→20:42)
[2018-07-23] MEDS: HYDROXYZINE PAMOATE 50MG CAP PO PRN (15:41)
[2018-07-23] MEDS: OLANZAPINE 5 MG TABLET PO PRN (15:41)
[2018-07-23 19:51] VITALS: BP 120/75
[2018-07-23] MEDS: QUETIAPINE 100MG TABLET PO SCH (20:42)
[2018-07-23] MEDS: TRAZODONE 100MG TABLET PO PRN (20:42)
[2018-07-23] MEDS: OLANZAPINE 10 MG TABLET PO SCH (20:42)
[2018-07-24 07:48] VITALS: BP 95/43
[2018-07-24] MEDS: LORazepam 0.5MG TABLET PO PRN (11:05)
[2018-07-24] MEDS: HYDROXYZINE PAMOATE 50MG CAP PO PRN (15:00)
[2018-07-24] MEDS: OLANZAPINE 5 MG TABLET PO PRN (15:01)
[2018-07-24] MEDS ORDERED: QUET100T PO (16:49)
[2018-07-24] MEDS ORDERED: OLAN10TA9 PO (16:49)
[2018-07-24] MEDS ORDERED: TRAZ-137 PO (16:49)
[2018-07-24] MEDS ORDERED: HYDR50CA2 PO (16:49)
[2018-07-24 19:34] VITALS: BP 119/81
[2018-07-24] MEDS: QUETIAPINE 100MG TABLET PO SCH (20:13)
[2018-07-24] MEDS: TRAZODONE 100MG TABLET PO PRN (20:13)
[2018-07-24] MEDS: OLANZAPINE 10 MG TABLET PO SCH (20:13)
[2018-07-25 07:45] VITALS: BP 123/80
[2018-07-25] MEDS: HYDROXYZINE PAMOATE 50MG CAP PO PRN (07:56)
[2018-07-25] MEDS: OLANZAPINE 5 MG TABLET PO PRN (07:56)
[2018-07-25] MEDS: LORazepam 0.5MG TABLET PO PRN (10:41)
== END 2018-07-25 11:00 | disposition home or self-care (01) | DRG 885 ==
LOC: 3E 14:21
PROVIDERS: ADMIT Psychiatry & Neurology Psychosomatic Medicine; ATTEND Psychiatry & Neurology Psychosomatic Medicine
DX: F25.0 Schizoaffective disorder, bipolar type (principal); F15.20 Other stimulant dependence, uncomplicated; R45.851 Suicidal ideations; F17.200 Nicotine dependence, unspecified, uncomplicated; F41.9 Anxiety disorder, unspecified; Z88.8 Allergy status to other drugs, medicaments and biological substances; Z91.14 Patient's other noncompliance with medication regimen; Z82.49 Family history of ischemic heart disease and other diseases of the circulatory system; Z91.5 Personal history of self-harm; Z80.7 Family history of other malignant neoplasms of lymphoid, hematopoietic and related tissues
CPT/HCPCS: 36415; 71045; 80061; 82140; 82607; 84439; 86592; 93005; 92523-GN

== ENCOUNTER 2018-08-17 17:41 | Emergency (ER) | payer MEDICAID ==
[~2018-08-17] VITALS: Ht 185.4 cm; Wt 132.3 kg
[~2018-08-17 17:41] MED LIST changes: +HYDR50CA2 PO; +QUET100T PO
[2018-08-17 17:48] VITALS: BP 124/85
[2018-08-17 18:41] LABS: BASOPHILS # (AUTO) 0.05 x10^3/uL (0-0.1); BASOPHILS % (AUTO) 1 % (0-1); EOSINOPHILS # (AUTO) 0.52 x10^3/uL (0-0.4); EOSINOPHILS % (AUTO) 5 % (1-7); LYMPHOCYTES # (AUTO) 2.51 x10^3/uL (1-3.4); LYMPHOCYTES % (AUTO) 26 % (22-44); MD NO; MEAN CORPUSCULAR HEMOGLOBIN 31.5 pg (27.5-34.5); MEAN CORPUSCULAR HGB CONC 34.1 g/dL (33.2-36.2); MEAN CORPUSCULAR VOLUME 92.3 fL (81-97); MEAN PLATELET VOLUME 8.9 fL (7.4-10.4); MONOCYTES # (AUTO) 0.72 x10^3/uL (0.2-0.8); MONOCYTES % (AUTO) 8 % (2-9); NEUTROPHILS # (AUTO) 5.84 x10^3/uL (1.8-6.8); NEUTROPHILS % (AUTO) 61 % (42-75); PLATELET COUNT 276 x10^3/uL (130-400); RED CELL DISTRIBUTION WIDTH 14.6 % (9.4-14.8)
[2018-08-17 18:54] LABS: ALBUMIN 3.2 g/dL (3.4-5.0); ANION GAP 5 mmol/L (5-15); CALCIUM 8.2 mg/dL (8.5-10.1); CHLORIDE 109 mmol/L (98-107); CREATININE 1.01 mg/dL (0.7-1.3); SALICYLATE LEVEL 2.4 mg/dL (2.8-20.0)
[2018-08-17 18:55] LABS: ACETAMINOPHEN < 2 mcg/mL (10-30)
[2018-08-17 23:18] LABS: AMPHETAMINE SCREEN, URINE Negative (Negative); BARBITURATE SCREEN, URINE Negative (Negative); BENZODIAZEPINE SCREEN, URINE Negative (Negative); CANNABINOID SCREEN, URINE Positive (Negative); COCAINE SCREEN, URINE Negative (Negative); METHADONE SCREEN, URINE Negative (Negative); OPIATE SCREEN, URINE Negative (Negative)
== END 2018-08-18 01:32 | disposition home or self-care (01) ==
LOC: ED 18:13
DX: R45.851 Suicidal ideations (principal); F17.200 Nicotine dependence, unspecified, uncomplicated; G43.909 Migraine, unspecified, not intractable, without status migrainosus; F20.9 Schizophrenia, unspecified; F41.1 Generalized anxiety disorder; M54.9 Dorsalgia, unspecified; G89.29 Other chronic pain; M25.569 Pain in unspecified knee; I11.9 Hypertensive heart disease without heart failure; Z59.0 Homelessness
CPT/HCPCS: 36415; 80048; 80307; 80329; 82040; 85025; 99284; G0480

== ENCOUNTER 2018-08-29 18:33 | Emergency (ER) | payer MEDICAID ==
[~2018-08-29] VITALS: Ht 190.5 cm; Wt 135.4 kg
[2018-08-29 18:35] VITALS: BP 152/94
== END 2018-08-29 19:47 | disposition home or self-care (01) ==
LOC: ED 18:44
DX: F32.9 Major depressive disorder, single episode, unspecified (principal); Z72.9 Problem related to lifestyle, unspecified; F15.10 Other stimulant abuse, uncomplicated; Z59.0 Homelessness; F17.210 Nicotine dependence, cigarettes, uncomplicated
CPT/HCPCS: 99284

== ENCOUNTER 2019-01-06 21:38 | Inpatient (IN) | payer MEDICAID ==
[~2019-01-06] VITALS: Ht 190.5 cm; Wt 137.0 kg
[~2019-01-06 21:38] MED LIST changes: +SERT100T32 PO; -SERT100T5 PO; +SERT50TA28 PO; -SERT50TA5 PO
--- NOTE | 2019-01-06 22:30 | NUR ---
PT BROUGHT IN BE [facility] FOR SUICIDAL AND HOMICIDAL IDEATION. NO PLAN FOR SUICIDE. STATES NEED TO BECASUE HE KEEPS SHOOTING PEOPLE IN THE HEAD WITH ARROWS. PT RESTLESS BUT COOPERATIVE. PSORIASIS NOTED ON ELBOWS AND ANTERIOR SURFACE OF CALVES. PT GIVEEN WARM BLANKET AND URINAL FOR UA COLLECTION, CALL LIGHT IN REACH
[2019-01-06 22:44] LABS: BASOPHILS # (AUTO) 0.04 x10^3/uL (0-0.1); BASOPHILS % (AUTO) 0 % (0-1); EOSINOPHILS # (AUTO) 0.14 x10^3/uL (0-0.4); EOSINOPHILS % (AUTO) 1 % (1-7); LYMPHOCYTES # (AUTO) 2.26 x10^3/uL (1-3.4); LYMPHOCYTES % (AUTO) 18 % (22-44); MD NO; MEAN CORPUSCULAR HGB CONC 34.1 g/dL (33.2-36.2); MEAN CORPUSCULAR VOLUME 90.8 fL (81-97); MEAN PLATELET VOLUME 9.4 fL (7.4-10.4); MONOCYTES # (AUTO) 1.37 x10^3/uL (0.2-0.8); MONOCYTES % (AUTO) 11 % (2-9); NEUTROPHILS # (AUTO) 9.05 x10^3/uL (1.8-6.8); NEUTROPHILS % (AUTO) 70 % (42-75); PLATELET COUNT 242 x10^3/uL (130-400); RED BLOOD COUNT 4.55 x10^6/uL (4.38-5.82); RED CELL DISTRIBUTION WIDTH 14.4 % (9.4-14.8)
[2019-01-06 22:53] LABS: ALANINE AMINOTRANSFERASE 35 U/L (12-78); ANION GAP 8 mmol/L (5-15); CALCIUM 8.7 mg/dL (8.5-10.1); CHLORIDE 107 mmol/L (98-107); CREATININE 1.19 mg/dL (0.7-1.3); SALICYLATE LEVEL 1.9 mg/dL (2.8-20.0)
[2019-01-06 22:55] LABS: ALKALINE PHOSPHATASE 78 U/L (45-117); BILIRUBIN,TOTAL 0.5 mg/dL (0.2-1.0); TOTAL PROTEIN 7.6 g/dL (6.4-8.2)
[2019-01-06 22:56] LABS: ACETAMINOPHEN < 2 mcg/mL (10-30)
--- NOTE | 2019-01-06 23:13 | NUR ---
PT GIVEN WATER
--- NOTE | 2019-01-06 23:30 | NUR ---
STILL UNABLE TO PROVIDE UA, GIVEN MORE WATER
--- NOTE | 2019-01-07 00:35 | NUR ---
URINE COLLECTED AND SENT TO LAB
--- NOTE | 2019-01-07 00:50 | NUR ---
TP RN: TELEPSYCH INITIATED
[2019-01-07 00:56] LABS: AMPHETAMINE SCREEN, URINE Positive (Negative); BARBITURATE SCREEN, URINE Negative (Negative); BENZODIAZEPINE SCREEN, URINE Negative (Negative); CANNABINOID SCREEN, URINE Negative (Negative); COCAINE SCREEN, URINE Negative (Negative); METHADONE SCREEN, URINE Negative (Negative); OPIATE SCREEN, URINE Negative (Negative)
--- NOTE | 2019-01-07 01:00 | NUR ---
PT WANTING PAIN AND ANXIETY MD ARIAN NOTIFIED
[2019-01-07] MEDS ORDERED: ACETAMINOPHEN 325 MG TABLET ONE ×2 (01:06→09:35)
[2019-01-07] MEDS ORDERED: LORazepam 1MG TABLET ONE ×2 (01:06→13:44)
--- NOTE | 2019-01-07 01:09 | NUR ---
PT MEDICATED PER ORDERS
[2019-01-07] MEDS ORDERED: LORazepam 1MG TABLET PO ONE (01:30)
[2019-01-07] MEDS ORDERED: ACETAMINOPHEN 325 MG TABLET PO ONE (01:30)
--- NOTE | 2019-01-07 01:46 | NUR ---
PT RESTING WITH EYES CLOSED, NO DISTRESS NOTED, SITTER OUT SIDE DOOR WITH VIEW OF PT
--- NOTE | 2019-01-07 02:40 | NUR ---
TELEPSYCH IN PROGRESS
--- NOTE | 2019-01-07 03:35 | NUR ---
PT RESTING WITH EYES CLOSED, NO DISTRESS NOTED, SITTER OUTSIDE ROOM IN VIEW OF PT
--- NOTE | 2019-01-07 05:19 | NUR ---
PT RESTING QUIETLY WITH EYES CLOSED, NO DISTRESS NOTED, SITTER OUTSIDE ROOM IN VIEW OF PT
--- NOTE | 2019-01-07 07:01 | NUR ---
RECEIVED REPORT FROM ANGELINA ESTEVES RN.
--- NOTE | 2019-01-07 07:42 | NUR ---
PT RESTING ON HAN. MARTINEZ. ROOM REMAINS SECURE. SITTER REMAINS AT BEDSIDE.
[2019-01-07] MEDS ORDERED: NICOTINE 14MG/24 HR PATCH.TD24 ONE (08:10)
[2019-01-07] MEDS: NICOTINE 14MG/24 HR PATCH.TD24 TD SCH (08:29)
--- NOTE | 2019-01-07 08:30 | NUR ---
PT MOVED FROM [facility] TO HOSPITAL BED. PT PROVIDED W/ BREAKFAST MEAL TRAY. SANJANAN. SITTER REMAINS AT BEDSIDE. ROOM REMAINS SECURE.
--- NOTE | 2019-01-07 08:44 | NUR ---
PACKET FAXED TO [facility] AND [facility]
--- NOTE | 2019-01-07 09:29 | NUR ---
PT RESTING IN BED. NADN. SITTER REMAINS AT BEDSIDE. ROOM REMAINS SECURE.
[2019-01-07] MEDS: ACETAMINOPHEN 325 MG TABLET PO PRN (09:38)
--- NOTE | 2019-01-07 10:51 | NUR ---
PT RESTING IN BED. NADN. SITTER REMAINS AT BEDSIDE. ROOM REMAINS SECURE.
--- NOTE | 2019-01-07 11:50 | NUR ---
PT RESTING IN BED. NADN. SITTER AT BEDSIDE. ROOM REMAINS SECURE.
--- NOTE | 2019-01-07 12:38 | NUR ---
PT PROVIDED W/ LUNCH TRAY. PT RESTING IN BED. SITTER REMAINS AT BEDSIDE. ROOM REMAINS SECURE.
--- NOTE | 2019-01-07 13:17 | NUR ---
PT RESTING IN BED. NADN. SITTER AT BEDSIDE. ROOM REMAINS SECURE.
[2019-01-07] MEDS ORDERED: METHOCARBAMOL 750 MG TABLET ONE (13:43)
[2019-01-07] MEDS ORDERED: IBUPROFEN 600 MG TABLET ONE (13:43)
[2019-01-07] MEDS: LORazepam 1MG TABLET PO PRN (13:48)
[2019-01-07] MEDS: IBUPROFEN 600 MG TABLET PO PRN (13:48)
[2019-01-07] MEDS: METHOCARBAMOL 500 MG TABLET PO PRN (14:11)
--- NOTE | 2019-01-07 14:11 | NUR ---
PT RESTING IN BED. NADN. SITTER AT BEDSIDE. ROOM REMAINS SECURE. PT MEDICATED PER DEC.
--- NOTE | 2019-01-07 15:20 | NUR ---
PT RESTING IN BED. NADN. SITTER AT BEDSIDE. ROOM REMAINS SECURE. PT MEDICATED PER DEC. PROVIDED W/ SNACK.
--- NOTE | 2019-01-07 18:13 | NUR ---
PT RESTING IN BED. NADN. VSS. SITTER REMAINS AT BEDSIDE. ROOM REMAINS SECURE.
--- NOTE | 2019-01-07 18:46 | NUR ---
PT REPORT FROM MAIRA GUERRIER. THIS RN TO ASSUME CARE OF PT. AWAITING MEAL TRAY FOR PT. NO OTHER IMMEDIATE NEEDS. ROLLER DOORS IN PLACE. SITTER IN HALLWAY.
--- NOTE | 2019-01-07 19:06 | NUR ---
REPORT GIVEN TO ANGELINA SARKAR RN.
--- NOTE | 2019-01-07 20:14 | NUR ---
No immediate needs from pt. Resting comfortably on hospital bed.
--- NOTE | 2019-01-07 20:45 | NUR ---
PT GIVEN 2 MEAL TRAYS PER HUNGER NEEDS.
--- NOTE | 2019-01-07 21:21 | NUR ---
No immediate needs from pt. Resting comfortably on hospital bed.
--- NOTE | 2019-01-07 22:18 | NUR ---
Pt resting comfortably on hospital bed. No immediate needs. Sitter in hallway.
--- NOTE | 2019-01-08 00:14 | NUR ---
Pt resting comfortably on hospital bed. No immediate needs. Sitter in hallway.
--- NOTE | 2019-01-08 00:41 | NUR ---
break rn. pt resting calmly, nadn, sitter at doorway for continous monitoring.
--- NOTE | 2019-01-08 01:15 | NUR ---
Pt resting comfortably on hospital bed. No immediate needs. Sitter in hallway.
--- NOTE | 2019-01-08 02:13 | NUR ---
Pt resting comfortably on hospital bed. No immediate needs. Sitter in hallway.
--- NOTE | 2019-01-08 03:41 | NUR ---
Pt resting comfortably on hospital bed. No immediate needs. Sitter in hallway.
--- NOTE | 2019-01-08 05:11 | NUR ---
Pt resting comfortably on hospital bed. No immediate needs. Sitter in hallway.
--- NOTE | 2019-01-08 06:41 | NUR ---
Pt resting comfortably on hospital bed. No immediate needs. Sitter in hallway.
--- NOTE | 2019-01-08 06:53 | NUR ---
PT REPORT TO JACKIE GUERRIER.
--- NOTE | 2019-01-08 07:14 | NUR ---
PT. IS RESTING WITHOUT CONCERNS. ROOM SECURED. SITTER OUTSIDE WATCHING THE PT.
--- NOTE | 2019-01-08 08:18 | NUR ---
PT. WAS GIVEN BREAKFAST.
--- NOTE | 2019-01-08 09:02 | NUR ---
PT RESTING IN WITH NO CONCERNS
[2019-01-08] MEDS ORDERED: IBUPROFEN 600 MG TABLET ONE (09:47)
[2019-01-08] MEDS ORDERED: LORazepam 1MG TABLET ONE (09:48)
[2019-01-08] MEDS: LORazepam 1MG TABLET PO PRN ×3 (09:52→20:13)
[2019-01-08] MEDS: IBUPROFEN 600 MG TABLET PO PRN (09:53)
--- NOTE | 2019-01-08 09:57 | NUR ---
PT. IS REQUESTING ATIVAN AND MOTRIN. PT. WAS MEDICATED ORDERED.
--- NOTE | 2019-01-08 10:07 | NUR ---
PT RESTING IN BED, NO CONCERNS AT THIS TIME, SITTER AT DOORWAY
--- NOTE | 2019-01-08 10:45 | NUR ---
SHALONDA RN: SPOKE W/ AP FROM [facility] WHO REFUSED PT DUE TO MEDICAL INSURANCE.
--- NOTE | 2019-01-08 11:14 | NUR ---
PT RESTING IN BED, NO CONCERNS AT THIS TIME, SITTER AT DOORWAY
--- NOTE | 2019-01-08 12:06 | NUR ---
PT RESTING IN BED, NO CONCERNS AT THIS TIME, SITTER AT DOORWAY. LUNCH TRAY ORDERED
--- NOTE | 2019-01-08 13:04 | NUR ---
PT RESTING IN BED, NO CONCERNS AT THIS TIME, SITTER AT DOORWAY. PT PROVIDED WITH LUNCH TRAY
[2019-01-08 14:00] VITALS: BP 150/89
[2019-01-08] MEDS: NICOTINE 14MG/24 HR PATCH.TD24 TD SCH (14:23)
[2019-01-08] MEDS: LIDODERM 5% PATCH TD PRN (14:24)
[2019-01-08] MEDS ORDERED: HYDROCORTISONE CRM 2.5%, 20GM TP PRN (18:30)
[2019-01-08 19:55] VITALS: BP 143/73
[2019-01-08] MEDS: ACETAMINOPHEN 325 MG TABLET PO PRN (20:13)
[2019-01-09] MEDS: IBUPROFEN 600 MG TABLET PO PRN (05:42)
[2019-01-09] MEDS: LORazepam 1MG TABLET PO PRN (05:42)
[2019-01-09 07:54] VITALS: BP 116/71
[2019-01-09] MEDS: METHOCARBAMOL 500 MG TABLET PO PRN (09:06)
[2019-01-09] MEDS: NICOTINE 14MG/24 HR PATCH.TD24 TD SCH (09:14)
[2019-01-09] MEDS: LIDODERM 5% PATCH TD PRN (09:15)
== END 2019-01-09 10:01 | DRG 885 ==
LOC: ED 23:59 → OBSVTOIN 01-07 06:35 → EDIP 01-07 06:35 → INTOOBSV 01-07 06:35 → 2N 01-08 13:46
PROVIDERS: ADMIT Hospitalist; ATTEND Hospitalist
DX: F25.9 Schizoaffective disorder, unspecified (principal); R45.851 Suicidal ideations; M54.9 Dorsalgia, unspecified; F15.10 Other stimulant abuse, uncomplicated; F17.210 Nicotine dependence, cigarettes, uncomplicated; F31.9 Bipolar disorder, unspecified; F41.9 Anxiety disorder, unspecified; G89.29 Other chronic pain; L40.9 Psoriasis, unspecified; Z59.0 Homelessness; Z91.14 Patient's other noncompliance with medication regimen; Z91.19 Patient's noncompliance with other medical treatment and regimen
CPT/HCPCS: 36415; 80053; 80307; 80329; 85025; 99285; G0378; G0480

== ENCOUNTER 2019-01-09 09:39 | Inpatient (IN) | payer MEDICAID ==
[~2019-01-09] VITALS: Ht 190.5 cm; Wt 135.6 kg
[~2019-01-09 09:39] MED LIST changes: +DOCUSATE 100 MG CAPSULE PO PRN
[2019-01-09] MEDS ORDERED: POLYETHYLENE GLYCOL 17 GM PACKET PO PRN (10:30)
[2019-01-09 10:51] VITALS: BP 100/68
[2019-01-09 11:08] VITALS: BP 100/68
[2019-01-09] MEDS: ACETAMINOPHEN 325 MG TABLET PO PRN ×2 (11:55→19:28)
[2019-01-09] MEDS: LORazepam 1MG TABLET PO PRN ×2 (11:55→19:50)
[2019-01-09 12:12] LABS: ANION GAP 8 mmol/L (5-15); CALCIUM 8.5 mg/dL (8.5-10.1); CHLORIDE 110 mmol/L (98-107); CHOLESTEROL, TOTAL 189 mg/dL (140-239); CREATININE 0.94 mg/dL (0.7-1.3)
[2019-01-09 12:38] LABS: CHOL/HDL RATIO 6.1; FOLATE LEVEL 18.9 ng/mL (3.1-17.5); FREE T4 (FREE THYROXINE) 1.03 ng/dL (0.76-1.46); HDL CHOL % 16 % (26-37); HDL CHOLESTEROL (DIRECT) 31 mg/dL (40-60); LDL CHOLESTEROL,CALCULATED 99 mg/dL (54-169); LDL/HDL RATIO 3.2 (0.5-3.0); TRIGLYCERIDES 297 mg/dL (50-200); VLDL CHOLESTEROL 59 mg/dL (0-25)
[2019-01-09] MEDS ORDERED: ACETAMINOPHEN 325 MG TABLET PO PRN (13:30)
[2019-01-09] MEDS ORDERED: LIDODERM 5% PATCH TD ONE (13:30)
[2019-01-09] MEDS: NICOTINE 14MG/24 HR PATCH.TD24 TD SCH (14:35)
[2019-01-09] MEDS: METHOCARBAMOL 500 MG TABLET PO PRN (14:42)
[2019-01-09] MEDS: IBUPROFEN 200 MG TABLET PO PRN (14:42)
[2019-01-09 15:27] LABS: MICROSCOPIC NOT IND
[2019-01-09 15:30] LABS: CULTURE INDICATED? NO
[2019-01-09] MEDS: OLANZAPINE 10 MG TABLET PO SCH (19:51)
[2019-01-09 20:00] VITALS: BP 127/67
[2019-01-10 07:41] VITALS: BP 100/66
[2019-01-10] MEDS: ACETAMINOPHEN 325 MG TABLET PO PRN (08:22)
[2019-01-10] MEDS: LORazepam 1MG TABLET PO PRN (08:22)
[2019-01-10] MEDS: IBUPROFEN 200 MG TABLET PO PRN (11:53)
[2019-01-10] MEDS: NICOTINE 14MG/24 HR PATCH.TD24 TD SCH (14:22)
[2019-01-10] MEDS ORDERED: HYDROCORTISONE CRM 2.5%, 20GM TP PRN (14:30)
[2019-01-10] MEDS: OLANZAPINE ODT 10MG PO PRN (15:45)
[2019-01-10 19:59] VITALS: BP 96/48
[2019-01-10] MEDS: OLANZAPINE 10 MG TABLET PO SCH (21:31)
[2019-01-11 00:29] VITALS: BP 119/85
[2019-01-11] MEDS: OLANZAPINE ODT 10MG PO PRN (00:29)
[2019-01-11 07:38] VITALS: BP 109/72
[2019-01-11] MEDS: EZETIMIBE 10 MG TABLET PO SCH (09:00)
[2019-01-11] MEDS: IBUPROFEN 200 MG TABLET PO PRN ×2 (09:22→17:45)
[2019-01-11] MEDS: LORazepam 1MG TABLET PO PRN ×2 (09:22→17:45)
[2019-01-11] MEDS: NICOTINE 14MG/24 HR PATCH.TD24 TD SCH (14:21)
[2019-01-11] MEDS: ACETAMINOPHEN 325 MG TABLET PO PRN (14:22)
[2019-01-11 19:56] VITALS: BP 137/84
[2019-01-11] MEDS: METHOCARBAMOL 500 MG TABLET PO PRN (21:02)
[2019-01-11] MEDS: OLANZAPINE 10 MG TABLET PO SCH (21:02)
[2019-01-12] MEDS: IBUPROFEN 200 MG TABLET PO PRN ×2 (05:34→16:20)
[2019-01-12 07:23] VITALS: BP 106/72
[2019-01-12] MEDS: LORazepam 1MG TABLET PO PRN ×2 (08:25→20:03)
[2019-01-12] MEDS: METHOCARBAMOL 500 MG TABLET PO PRN ×3 (08:25→22:12)
[2019-01-12] MEDS: EZETIMIBE 10 MG TABLET PO SCH (08:26)
[2019-01-12] MEDS: NICOTINE 14MG/24 HR PATCH.TD24 TD SCH (14:21)
[2019-01-12] MEDS: OLANZAPINE 10 MG TABLET PO SCH (20:03)
[2019-01-12 21:11] VITALS: BP 115/80
[2019-01-12] MEDS: OLANZAPINE ODT 10MG PO PRN (22:12)
[2019-01-13 07:26] VITALS: BP 111/69
[2019-01-13] MEDS: ACETAMINOPHEN 325 MG TABLET PO PRN (08:13)
[2019-01-13] MEDS: EZETIMIBE 10 MG TABLET PO SCH (08:16)
[2019-01-13] MEDS: LORazepam 1MG TABLET PO PRN ×2 (09:49→20:17)
[2019-01-13] MEDS: OLANZAPINE ODT 10MG PO PRN ×2 (11:26→22:28)
[2019-01-13] MEDS: METHOCARBAMOL 500 MG TABLET PO PRN ×2 (14:38→22:28)
[2019-01-13] MEDS: NICOTINE 14MG/24 HR PATCH.TD24 TD SCH (14:42)
[2019-01-13 19:28] VITALS: BP 98/61
[2019-01-13] MEDS: TRAZODONE 150MG TABLET PO SCH (20:17)
[2019-01-13] MEDS: OLANZAPINE 10 MG TABLET PO SCH (20:17)
[2019-01-14] MEDS: IBUPROFEN 200 MG TABLET PO PRN ×3 (06:36→20:53)
[2019-01-14 07:50] VITALS: BP 115/77
[2019-01-14] MEDS: ACETAMINOPHEN 325 MG TABLET PO PRN ×2 (08:24→16:44)
[2019-01-14] MEDS: EZETIMIBE 10 MG TABLET PO SCH (08:24)
[2019-01-14] MEDS: METHOCARBAMOL 500 MG TABLET PO PRN ×2 (10:04→16:44)
[2019-01-14] MEDS: LORazepam 1MG TABLET PO PRN ×2 (10:04→19:29)
[2019-01-14] MEDS: NICOTINE 14MG/24 HR PATCH.TD24 TD SCH (14:29)
[2019-01-14] MEDS: OLANZAPINE ODT 10MG PO PRN (14:29)
[2019-01-14 20:13] VITALS: BP 112/70
[2019-01-14] MEDS: OLANZAPINE 10 MG TABLET PO SCH (20:54)
[2019-01-14] MEDS: TRAZODONE 150MG TABLET PO SCH (20:54)
[2019-01-15] MEDS: LORazepam 1MG TABLET PO PRN ×2 (05:11→16:17)
[2019-01-15] MEDS: IBUPROFEN 200 MG TABLET PO PRN ×2 (05:11→11:20)
[2019-01-15 07:35] VITALS: BP 111/76
[2019-01-15] MEDS: METHOCARBAMOL 500 MG TABLET PO PRN (08:35)
[2019-01-15] MEDS: EZETIMIBE 10 MG TABLET PO SCH (08:35)
[2019-01-15] MEDS: OLANZAPINE ODT 10MG PO PRN (11:20)
[2019-01-15] MEDS: ACETAMINOPHEN 325 MG TABLET PO PRN ×2 (14:23→20:37)
[2019-01-15] MEDS: NICOTINE 14MG/24 HR PATCH.TD24 TD SCH (14:23)
[2019-01-15 19:50] VITALS: BP 148/60
[2019-01-15] MEDS: TRAZODONE 150MG TABLET PO SCH (20:37)
[2019-01-15] MEDS: OLANZAPINE 10 MG TABLET PO SCH (20:37)
[2019-01-16 07:16] VITALS: BP 124/78
[2019-01-16] MEDS: EZETIMIBE 10 MG TABLET PO SCH (08:07)
[2019-01-16] MEDS: METHOCARBAMOL 500 MG TABLET PO PRN (10:21)
[2019-01-16] MEDS: LORazepam 1MG TABLET PO PRN ×2 (10:22→20:18)
[2019-01-16] MEDS: ACETAMINOPHEN 325 MG TABLET PO PRN ×2 (10:22→20:18)
[2019-01-16] MEDS: NICOTINE 14MG/24 HR PATCH.TD24 TD SCH (14:57)
[2019-01-16] MEDS: IBUPROFEN 200 MG TABLET PO PRN (15:46)
[2019-01-16] MEDS ORDERED: NICO-486 TD (15:56)
[2019-01-16] MEDS ORDERED: TRAZ150T62 PO (15:56)
[2019-01-16] MEDS ORDERED: OLAN10TA9 PO (15:56)
[2019-01-16] MEDS ORDERED: EZET10TA18 PO (15:56)
[2019-01-16 19:45] VITALS: BP 117/67
[2019-01-16] MEDS: OLANZAPINE 10 MG TABLET PO SCH (20:13)
[2019-01-16] MEDS: TRAZODONE 150MG TABLET PO SCH (20:13)
[2019-01-17] MEDS: LORazepam 1MG TABLET PO PRN (06:34)
[2019-01-17] MEDS: ACETAMINOPHEN 325 MG TABLET PO PRN (06:36)
[2019-01-17 07:07] VITALS: BP 120/85
[2019-01-17] MEDS: EZETIMIBE 10 MG TABLET PO SCH (08:04)
== END 2019-01-17 08:45 | disposition home or self-care (01) | DRG 885 ==
LOC: 3E 10:07
PROVIDERS: ADMIT Psychiatry & Neurology Psychosomatic Medicine; ATTEND Psychiatry & Neurology Psychosomatic Medicine
DX: F25.0 Schizoaffective disorder, bipolar type (principal); R45.851 Suicidal ideations; F15.10 Other stimulant abuse, uncomplicated; F17.200 Nicotine dependence, unspecified, uncomplicated; F41.9 Anxiety disorder, unspecified; G47.00 Insomnia, unspecified; L29.9 Pruritus, unspecified; L40.9 Psoriasis, unspecified; G89.29 Other chronic pain; I10 Essential (primary) hypertension; Z59.0 Homelessness; Z79.899 Other long term (current) drug therapy; Z81.8 Family history of other mental and behavioral disorders; Z91.19 Patient's noncompliance with other medical treatment and regimen; Z88.8 Allergy status to other drugs, medicaments and biological substances
CPT/HCPCS: 36415; 71045; 80048; 80061; 81003; 82140; 82607; 82746; 84439; 84443; 86592; 93005

== ENCOUNTER 2019-01-25 12:12 | Inpatient (IN) | payer MEDICAID ==
[~2019-01-25] VITALS: Ht 190.5 cm; Wt 137.0 kg
[~2019-01-25 12:12] MED LIST changes: -DOCUSATE 100 MG CAPSULE PO PRN; +EZET10TA18 PO; +NICO-486 TD
[2019-01-25] MEDS ORDERED: POLYETHYLENE GLYCOL 17 GM PACKET PO PRN (12:30)
[2019-01-25] MEDS ORDERED: OLANZAPINE ODT 10MG PO PRN (12:30)
[2019-01-25] MEDS ORDERED: DOCUSATE 100 MG CAPSULE PO PRN (12:30)
[2019-01-25] MEDS ORDERED: BISACODYL 10 MG SUPP PR PRN (12:30)
[2019-01-25] MEDS: NICOTINE 14MG/24 HR PATCH.TD24 TD SCH (15:30)
[2019-01-25] MEDS: ACETAMINOPHEN 325 MG TABLET PO PRN (16:22)
[2019-01-25] MEDS: LORazepam 1MG TABLET PO PRN (16:22)
[2019-01-25 16:44] VITALS: BP 145/83
[2019-01-25 19:55] VITALS: BP 148/82
[2019-01-25] MEDS: METHOCARBAMOL 500 MG TABLET PO PRN (21:57)
[2019-01-25] MEDS: OLANZAPINE 10 MG TABLET PO SCH (21:58)
[2019-01-25] MEDS: TRAZODONE 150MG TABLET PO SCH (21:58)
[2019-01-26 06:43] LABS: BASOPHILS # (AUTO) 0.04 x10^3/uL (0-0.1); BASOPHILS % (AUTO) 0 % (0-1); EOSINOPHILS # (AUTO) 0.43 x10^3/uL (0-0.4); EOSINOPHILS % (AUTO) 5 % (1-7); LYMPHOCYTES # (AUTO) 2.54 x10^3/uL (1-3.4); LYMPHOCYTES % (AUTO) 28 % (22-44); MD NO; MEAN CORPUSCULAR HEMOGLOBIN 30.7 pg (27.5-34.5); MEAN CORPUSCULAR HGB CONC 33.3 g/dL (33.2-36.2); MEAN CORPUSCULAR VOLUME 92.3 fL (81-97); MEAN PLATELET VOLUME 9.1 fL (7.4-10.4); MONOCYTES # (AUTO) 0.58 x10^3/uL (0.2-0.8); MONOCYTES % (AUTO) 6 % (2-9); NEUTROPHILS # (AUTO) 5.47 x10^3/uL (1.8-6.8); NEUTROPHILS % (AUTO) 60 % (42-75); PLATELET COUNT 234 x10^3/uL (130-400); RED CELL DISTRIBUTION WIDTH 14.8 % (9.4-14.8)
[2019-01-26 07:00] LABS: ALANINE AMINOTRANSFERASE 29 U/L (12-78); ALBUMIN 3.2 g/dL (3.4-5.0); ANION GAP 5 mmol/L (5-15); CALCIUM 8.3 mg/dL (8.5-10.1); CHLORIDE 114 mmol/L (98-107)
[2019-01-26 07:10] LABS: ALKALINE PHOSPHATASE 77 U/L (45-117); BILIRUBIN,TOTAL 0.2 mg/dL (0.2-1.0); FREE T4 (FREE THYROXINE) 0.99 ng/dL (0.76-1.46); TOTAL PROTEIN 6.4 g/dL (6.4-8.2)
[2019-01-26 07:40] VITALS: BP 123/75
[2019-01-26] MEDS: ACETAMINOPHEN 325 MG TABLET PO PRN ×3 (08:20→20:27)
[2019-01-26] MEDS: LORazepam 1MG TABLET PO PRN ×2 (08:20→22:58)
[2019-01-26] MEDS: EZETIMIBE 10 MG TABLET PO SCH (08:20)
[2019-01-26] MEDS: NICOTINE 14MG/24 HR PATCH.TD24 TD SCH (12:30)
[2019-01-26 17:14] LABS: MICROSCOPIC NOT IND
[2019-01-26 17:18] LABS: CULTURE INDICATED? NO
[2019-01-26 19:42] VITALS: BP 123/76
[2019-01-26] MEDS: TRAZODONE 150MG TABLET PO SCH (20:27)
[2019-01-26] MEDS: OLANZAPINE 10 MG TABLET PO SCH (20:27)
[2019-01-27] MEDS: ACETAMINOPHEN 325 MG TABLET PO PRN ×2 (06:32→14:55)
[2019-01-27 07:24] VITALS: BP 126/79
[2019-01-27] MEDS: EZETIMIBE 10 MG TABLET PO SCH (09:23)
[2019-01-27] MEDS: IBUPROFEN 200 MG TABLET PO PRN ×2 (09:36→19:40)
[2019-01-27] MEDS: LORazepam 1MG TABLET PO PRN (11:12)
[2019-01-27] MEDS: NICOTINE 14MG/24 HR PATCH.TD24 TD SCH (12:20)
[2019-01-27 19:40] VITALS: BP 146/89
[2019-01-27] MEDS: TRAZODONE 150MG TABLET PO SCH (20:27)
[2019-01-27] MEDS: OLANZAPINE 10 MG TABLET PO SCH (20:27)
[2019-01-28 07:18] VITALS: BP 124/78
[2019-01-28] MEDS: EZETIMIBE 10 MG TABLET PO SCH (07:59)
[2019-01-28] MEDS: IBUPROFEN 200 MG TABLET PO PRN ×2 (07:59→17:50)
[2019-01-28] MEDS: METHOCARBAMOL 500 MG TABLET PO PRN (07:59)
[2019-01-28] MEDS: LORazepam 1MG TABLET PO PRN ×2 (08:23→17:57)
[2019-01-28] MEDS: NICOTINE 14MG/24 HR PATCH.TD24 TD SCH (14:17)
[2019-01-28] MEDS: ACETAMINOPHEN 325 MG TABLET PO PRN (19:37)
[2019-01-28 19:42] VITALS: BP 128/82
[2019-01-28] MEDS: TRAZODONE 150MG TABLET PO SCH (20:30)
[2019-01-28] MEDS: PRAZOSIN 1 MG CAPSULE PO SCH (20:30)
[2019-01-28] MEDS: OLANZAPINE 10 MG TABLET PO SCH (20:31)
[2019-01-29 07:19] VITALS: BP 138/83
[2019-01-29] MEDS: EZETIMIBE 10 MG TABLET PO SCH (08:31)
[2019-01-29] MEDS: ACETAMINOPHEN 325 MG TABLET PO PRN ×2 (08:31→20:39)
[2019-01-29] MEDS: LORazepam 1MG TABLET PO PRN ×2 (08:31→16:35)
[2019-01-29] MEDS: NICOTINE 14MG/24 HR PATCH.TD24 TD SCH (12:06)
[2019-01-29] MEDS: IBUPROFEN 200 MG TABLET PO PRN (14:47)
[2019-01-29] MEDS ORDERED: OLAN10TA9 PO (15:58)
[2019-01-29] MEDS ORDERED: PRAZ1CAP2 PO (15:58)
[2019-01-29] MEDS ORDERED: EZET10TA18 PO (15:58)
[2019-01-29] MEDS ORDERED: TRAZ150T62 PO (15:58)
[2019-01-29] MEDS ORDERED: NICO-486 TD (15:58)
[2019-01-29 19:42] VITALS: BP 144/75
[2019-01-29] MEDS: TRAZODONE 150MG TABLET PO SCH (20:39)
[2019-01-29] MEDS: PRAZOSIN 1 MG CAPSULE PO SCH (20:39)
[2019-01-29] MEDS: OLANZAPINE 10 MG TABLET PO SCH (20:39)
[2019-01-30 07:52] VITALS: BP 135/82
[2019-01-30] MEDS: LORazepam 1MG TABLET PO PRN (08:13)
[2019-01-30] MEDS: EZETIMIBE 10 MG TABLET PO SCH (08:13)
[2019-01-30] MEDS: ACETAMINOPHEN 325 MG TABLET PO PRN (08:13)
[2019-01-30] MEDS: NICOTINE 14MG/24 HR PATCH.TD24 TD SCH (11:25)
== END 2019-01-30 12:10 | disposition home or self-care (01) | DRG 885 ==
LOC: 3E 14:13
PROVIDERS: ADMIT Psychiatry & Neurology Psychosomatic Medicine; ATTEND Psychiatry & Neurology Psychosomatic Medicine
DX: F25.0 Schizoaffective disorder, bipolar type (principal); R45.851 Suicidal ideations; E66.9 Obesity, unspecified; E78.5 Hyperlipidemia, unspecified; G47.00 Insomnia, unspecified; G89.29 Other chronic pain; F41.9 Anxiety disorder, unspecified; M54.2 Cervicalgia; M54.9 Dorsalgia, unspecified; F32.9 Major depressive disorder, single episode, unspecified; I10 Essential (primary) hypertension; J45.909 Unspecified asthma, uncomplicated; F17.210 Nicotine dependence, cigarettes, uncomplicated; F15.10 Other stimulant abuse, uncomplicated; K59.00 Constipation, unspecified; L30.9 Dermatitis, unspecified; Z59.0 Homelessness; Z79.899 Other long term (current) drug therapy; Z81.8 Family history of other mental and behavioral disorders; Z71.51 Drug abuse counseling and surveillance of drug abuser; Z88.8 Allergy status to other drugs, medicaments and biological substances; Z87.81 Personal history of (healed) traumatic fracture; Z68.37 Body mass index [BMI] 37.0-37.9, adult
CPT/HCPCS: 36415; 80053; 81003; 82140; 84439; 84443; 85025; 93005; 92522-GN

== ENCOUNTER 2019-02-07 13:12 | Emergency (ER) | payer MEDICAID ==
[~2019-02-07] VITALS: Ht 190.5 cm; Wt 140.0 kg
[~2019-02-07 13:12] MED LIST changes: +PRAZ1CAP2 PO
[2019-02-07 13:16] VITALS: BP 137/79
--- NOTE | 2019-02-07 13:21 | NUR ---
ROOM SECURED, BELONGINGS REMOVED AND PLACED IN SECURED LOCKER. BREATHALYZER 0.00. PT COOPERATIVE WITH CARE, CALM BUT STATES HE HAS HAD MOMENTS OF "EXTREME ANGER". HE ALSO STATES HE HAS BEEN SAYING "RACIAL SLURS". +AH, VOICES TELLLING HIM PEOPLE ARE AFTER HIM. +VH OF "CHILDREN FLYING AROUND". PT STATES HE WAS ADMITTED FOR INPATIENT TREATMENT HERE ONE MONTH AGO.
[2019-02-07] MEDS ORDERED: LORazepam 1MG TABLET ONE (13:47)
[2019-02-07] MEDS ORDERED: OLANZAPINE 10 MG TABLET ONE (13:47)
--- NOTE | 2019-02-07 13:51 | NUR ---
PT MEDICATED PER ERP ORDER. URINAL AT BS. LAB IN TO DRAW.
[2019-02-07] MEDS ORDERED: OLANZAPINE 10 MG TABLET PO ONE (14:00)
[2019-02-07] MEDS ORDERED: LORazepam 1MG TABLET PO ONE (14:00)
--- NOTE | 2019-02-07 14:17 | NUR ---
URINE COLLECTED/WALKED TO LAB.
[2019-02-07 14:24] LABS: BASOPHILS # (AUTO) 0.09 x10^3/uL (0-0.1); BASOPHILS % (AUTO) 1 % (0-1); EOSINOPHILS # (AUTO) 0.27 x10^3/uL (0-0.4); EOSINOPHILS % (AUTO) 2 % (1-7); LYMPHOCYTES % (AUTO) 23 % (22-44); MD NO; MEAN CORPUSCULAR HEMOGLOBIN 31.4 pg (27.5-34.5); MEAN CORPUSCULAR HGB CONC 34.2 g/dL (33.2-36.2); MEAN PLATELET VOLUME 8.8 fL (7.4-10.4); MONOCYTES # (AUTO) 1.03 x10^3/uL (0.2-0.8); MONOCYTES % (AUTO) 9 % (2-9); NEUTROPHILS # (AUTO) 7.68 x10^3/uL (1.8-6.8); NEUTROPHILS % (AUTO) 65 % (42-75); PLATELET COUNT 273 x10^3/uL (130-400); RED BLOOD COUNT 4.94 x10^6/uL (4.38-5.82); RED CELL DISTRIBUTION WIDTH 14.7 % (9.4-14.8)
[2019-02-07 14:29] LABS: ALANINE AMINOTRANSFERASE 34 U/L (12-78); ALBUMIN 3.8 g/dL (3.4-5.0); ANION GAP 6 mmol/L (5-15); CALCIUM 8.8 mg/dL (8.5-10.1); CHLORIDE 111 mmol/L (98-107); CREATININE 0.99 mg/dL (0.7-1.3)
[2019-02-07 14:33] LABS: ALKALINE PHOSPHATASE 83 U/L (45-117); BILIRUBIN,TOTAL 0.3 mg/dL (0.2-1.0); TOTAL PROTEIN 7.7 g/dL (6.4-8.2)
[2019-02-07 14:35] LABS: BARBITURATE SCREEN, URINE Negative (Negative); BENZODIAZEPINE SCREEN, URINE Negative (Negative); CANNABINOID SCREEN, URINE Negative (Negative); COCAINE SCREEN, URINE Negative (Negative); METHADONE SCREEN, URINE Negative (Negative); OPIATE SCREEN, URINE Negative (Negative)
[2019-02-07 14:43] LABS: AMPHETAMINE SCREEN, URINE Positive (Negative)
--- NOTE | 2019-02-07 14:50 | NUR ---
ALL RESULTS BACK, PT FOR RECHECK.
--- NOTE | 2019-02-07 15:48 | NUR ---
PT RESTING QUIETLY, AWAITING REASSESSMENT/DISPO BY ERP.
--- NOTE | 2019-02-07 17:45 | NUR ---
TELEPSYCH ROBOT IN ROOM. MEAL TRAY PROVIDED TO PT.
--- NOTE | 2019-02-07 20:00 | NUR ---
RETURN FROM BREAK, PT REQUESTING TO GO HOME. PT STATES "I'M NOT SUICIDAL, I'M NOT HOMICIDAL, I CAN GO HOME". ERP NOTIFIED.
--- NOTE | 2019-02-07 20:26 | NUR ---
PT GIVEN DC INSTRUCTIONS, CALM AND COOPERATIVE WITH CARE. PT AMBULATES OUT TO DC DESK.
== END 2019-02-07 20:38 | disposition home or self-care (01) ==
LOC: ED 14:01
DX: F15.20 Other stimulant dependence, uncomplicated (principal); Z72.9 Problem related to lifestyle, unspecified; I10 Essential (primary) hypertension; G89.29 Other chronic pain
CPT/HCPCS: 36415; 80053; 80307; 85025; 99283

== ENCOUNTER 2019-02-10 05:39 | Emergency (ER) | payer MEDICAID ==
[~2019-02-10] VITALS: Ht 190.5 cm; Wt 137.0 kg
--- NOTE | 2019-02-10 05:50 | NUR ---
bib [facility] per emt pt has c/o nonradiating mid cp x 1 hour,denies cardiac h/x, fsbs-117, b/p-160/90, hr-72, 100% r/a. monitors applied, siderails up x2, call light within reach. erp at bedside for eval
--- NOTE | 2019-02-10 06:13 | NUR ---
pt resting on gurphilippi, monitors in place, call light within reach. awaiting xray and lab results
[2019-02-10 06:26] LABS: BASOPHILS # (AUTO) 0.06 x10^3/uL (0-0.1); BASOPHILS % (AUTO) 1 % (0-1); EOSINOPHILS # (AUTO) 0.44 x10^3/uL (0-0.4); EOSINOPHILS % (AUTO) 5 % (1-7); LYMPHOCYTES # (AUTO) 2.48 x10^3/uL (1-3.4); LYMPHOCYTES % (AUTO) 27 % (22-44); MD NO; MEAN CORPUSCULAR HEMOGLOBIN 31.6 pg (27.5-34.5); MEAN CORPUSCULAR HGB CONC 34.2 g/dL (33.2-36.2); MEAN CORPUSCULAR VOLUME 92.4 fL (81-97); MEAN PLATELET VOLUME 8.7 fL (7.4-10.4); MONOCYTES # (AUTO) 0.94 x10^3/uL (0.2-0.8); MONOCYTES % (AUTO) 10 % (2-9); NEUTROPHILS # (AUTO) 5.41 x10^3/uL (1.8-6.8); NEUTROPHILS % (AUTO) 58 % (42-75); PLATELET COUNT 270 x10^3/uL (130-400); RED BLOOD COUNT 4.66 x10^6/uL (4.38-5.82); RED CELL DISTRIBUTION WIDTH 14.5 % (9.4-14.8)
[2019-02-10 06:32] LABS: ALBUMIN 3.6 g/dL (3.4-5.0); ANION GAP 6 mmol/L (5-15); CALCIUM 8.8 mg/dL (8.5-10.1); CHLORIDE 111 mmol/L (98-107); CREATININE 1.12 mg/dL (0.7-1.3)
[2019-02-10 06:36] LABS: TROPONIN I < 0.015 ng/mL (0.000-0.045)
--- NOTE | 2019-02-10 06:51 | NUR ---
REPORT GIVEN TO CHEY MATTHEWS
[2019-02-10 06:55] VITALS: BP 113/68
== END 2019-02-10 06:57 ==
LOC: ED 06:51
DX: R07.89 Other chest pain (principal)
CPT/HCPCS: 36415; 71045; 80048; 82040; 84484; 85025; 93005; 99284

== ENCOUNTER 2019-02-17 18:49 | Emergency (ER) | payer MEDICAID ==
[~2019-02-17] VITALS: Ht 190.5 cm; Wt 145.0 kg
--- NOTE | 2019-02-17 18:53 | NUR ---
PATIENT ARRIVES FROM [facility] AFTER HEARING VOICES TELLING HIM TO HARM HIMSELF. THE VOICES TOLD HIM TO HARM HIMSELF WITH BURNING HIS EYE WITH A CIGERETTE, WHICH HE DID IN RIGHT EYE. IT IS RED, AND WEEPY. HE HAS A HISTORY OF BIPOLAR, SCHITZOEFFECTIVE DISORDER, AND SUICIDE ATTEMPTS. HE STATES HE DOES HEAR THE VOICES AT THIS TIME TELLING HIM TO HARM HIMSELF.
--- NOTE | 2019-02-17 19:01 | NUR ---
URINE COLLECTED AND SENT. PATIENT BELONGINGS REMOVED. PATIENT REPORT GIVEN TO CHEY BROOKS
--- NOTE | 2019-02-17 19:08 | NUR ---
RECEIVED RERPORT FROM CHEY BROWN TO ASSUME CARE OF PT. PT. TO ED WITH C/O SI. HX OF SA X 10 IN THE PAST. HX OF SCHITZOAFFECTIVE AND HAS BEEN TAKING HIS MEDS. PT. LIVES IN A RESIDENTIAL IN [facility]. PT. REPORTS HE WOULD SHOT HIMSELF(DOESN'T HAVE A GUN). PT. DID BURN HIMSELF TODAY IN THE RIGHT EYE TODAY "THE VOICES TOLD ME TO". ALL BELONGINGS REMOVED AND SECURED IN LOCKER IN 1 BAG(SHOES, SHIRT, SWEAT PANTS). PT. MOVED TO ED 39 FOR SECURED ROOM AND SITTER AT THIS TIME.
[2019-02-17 19:15] LABS: BASOPHILS # (AUTO) 0.09 x10^3/uL (0-0.1); BASOPHILS % (AUTO) 1 % (0-1); EOSINOPHILS # (AUTO) 0.42 x10^3/uL (0-0.4); EOSINOPHILS % (AUTO) 4 % (1-7); LYMPHOCYTES # (AUTO) 2.74 x10^3/uL (1-3.4); LYMPHOCYTES % (AUTO) 25 % (22-44); MD NO; MEAN CORPUSCULAR HEMOGLOBIN 31.6 pg (27.5-34.5); MEAN CORPUSCULAR HGB CONC 34.2 g/dL (33.2-36.2); MEAN CORPUSCULAR VOLUME 92.3 fL (81-97); MEAN PLATELET VOLUME 8.7 fL (7.4-10.4); MONOCYTES # (AUTO) 0.78 x10^3/uL (0.2-0.8); MONOCYTES % (AUTO) 7 % (2-9); NEUTROPHILS # (AUTO) 6.92 x10^3/uL (1.8-6.8); NEUTROPHILS % (AUTO) 63 % (42-75); PLATELET COUNT 282 x10^3/uL (130-400); RED CELL DISTRIBUTION WIDTH 14.4 % (9.4-14.8)
--- NOTE | 2019-02-17 19:16 | NUR ---
REPORT TO CHEY PRUITT TO ASSUME CARE OF PT. LABS HAVE BEEN DRAWN, URINE WAS ALREADY SENT TO LAB.
[2019-02-17 19:26] LABS: ALANINE AMINOTRANSFERASE 32 U/L (12-78); ALBUMIN 3.8 g/dL (3.4-5.0); ANION GAP 8 mmol/L (5-15); CALCIUM 8.6 mg/dL (8.5-10.1); CHLORIDE 110 mmol/L (98-107); SALICYLATE LEVEL 4.3 mg/dL (2.8-20.0)
[2019-02-17 19:28] LABS: AMPHETAMINE SCREEN, URINE Negative (Negative); BARBITURATE SCREEN, URINE Negative (Negative); BENZODIAZEPINE SCREEN, URINE Negative (Negative); CANNABINOID SCREEN, URINE Negative (Negative); COCAINE SCREEN, URINE Negative (Negative); METHADONE SCREEN, URINE Negative (Negative); OPIATE SCREEN, URINE Negative (Negative)
[2019-02-17 19:29] LABS: ALKALINE PHOSPHATASE 84 U/L (45-117); BILIRUBIN,TOTAL 0.3 mg/dL (0.2-1.0); CREATININE 1.15 mg/dL (0.7-1.3); TOTAL PROTEIN 7.4 g/dL (6.4-8.2)
[2019-02-17] MEDS ORDERED: FLUORESCEIN OPHTHALMIC 1 MG STRIP EACHEYE ONE (19:30)
[2019-02-17] MEDS ORDERED: PROPARACAINE OPHTH 0.5%, 15ML EACHEYE ONE (19:30)
[2019-02-17 19:34] LABS: ACETAMINOPHEN < 2 mcg/mL (10-30)
[2019-02-17] MEDS ORDERED: FLUORESCEIN OPHTHALMIC 1 MG STRIP ONE (20:25)
[2019-02-17] MEDS ORDERED: PROPARACAINE OPHTH 0.5%, 15ML ONE (20:27)
--- NOTE | 2019-02-17 21:20 | NUR ---
Pt ambualtes to restroom without assistance, pt given dinner per request.
[2019-02-17] MEDS ORDERED: QUETIAPINE 100MG TABLET ONE (22:27)
[2019-02-17] MEDS ORDERED: QUETIAPINE 100MG TABLET PO ONE (22:30)
--- NOTE | 2019-02-17 22:39 | NUR ---
Pt placed on hospital bed, given crackers and juice. Medicated per emar, pt and RN had discussion about expectations, pt agrees only water throughout the night after this and will get breakfast tray in the am, pt calm, cooperative with RN. Sitter remains at door watching pt
--- NOTE | 2019-02-18 01:22 | NUR ---
TELEPSYCH INITIATED. [id number] BOT PLACED AD BS.
--- NOTE | 2019-02-18 01:33 | NUR ---
Pt sleeping, bilateral chest rise noted, sitter remains at door watching pt
--- NOTE | 2019-02-18 02:17 | NUR ---
PT RESTING ON HOSPITAL BED WITH EYES CLOSED, NADN, EQUAL CHEST RISE/FALL OBSERVED, ROOM SECURED, SITTER AT DOORWAY FOR CONTINOUS MONITORING
--- NOTE | 2019-02-18 03:16 | NUR ---
PT RESTING CALMLY, NADN, EQUAL CHEST RISE/FALL OBSERVED, SITTER AT DOORWAY FOR CONTINOUS MONITORING
--- NOTE | 2019-02-18 03:53 | NUR ---
soc on telephone, updated on pt's status, medical h/x, vss, medications and lab results
[2019-02-18 03:56] VITALS: BP 112/71
--- NOTE | 2019-02-18 04:02 | NUR ---
TELE PSYCH CONSULT IN PROCESS Addendum: 02/18/19 at 0403 by JUNITO PT SITTING UP IN BED, NAD, SITTER AT DOORWAY FOR CONTINOUS MONITORING
--- NOTE | 2019-02-18 04:58 | NUR ---
PT RESTING CALMLY, EQUAL CHEST RISE/FALL OBSERVED, SITTER AT DOORWAY FOR CONTINOUS MONITORING
[2019-02-18] MEDS ORDERED: OLANZAPINE 10 MG TABLET PO SCH (09:00)
== END 2019-02-18 05:43 | disposition home or self-care (01) ==
LOC: ED 20:01
DX: F33.3 Major depressive disorder, recurrent, severe with psychotic symptoms (principal); R45.851 Suicidal ideations; F25.8 Other schizoaffective disorders; F17.200 Nicotine dependence, unspecified, uncomplicated; I10 Essential (primary) hypertension
CPT/HCPCS: 36415; 80053; 80307; 85025; 99284

== ENCOUNTER 2019-02-25 20:54 | Emergency (ER) | payer MEDICAID ==
[~2019-02-25] VITALS: Ht 190.5 cm; Wt 145.0 kg
[2019-02-25 20:57] VITALS: BP 148/90
--- NOTE | 2019-02-25 21:02 | NUR ---
PT HERE FOR SI, PT REPORTS THAT HE COMITTED SUICIDE 5 DAYS AGO WITH OVERDOSING ON ZYPREXA. PT REPORTS HE WILL JUMP OFF A BUILDING IF HE IS DISCHARGED. PT PLACED IN SECURE ROOM AND BELONGINGS PLACED IN BAG. PT AT THIS TIME IN ROOM AND ENCOURAGE TO PLEASE LET STAFF KNOW IF HE FEELS UNSAFE OR SUICIDAL. VERBAL CONTRACT ESTABLISHED WITH PT.
[2019-02-25] MEDS ORDERED: ZIPRASIDONE 20 MG INJ IM ONE ×2 (21:24→21:30)
[2019-02-25] MEDS ORDERED: LORazepam 1MG TABLET PO ONE (21:30)
[2019-02-25] MEDS ORDERED: LORazepam 1MG TABLET ONE (21:34)
== END 2019-02-25 21:46 | disposition home or self-care (01) ==
LOC: ED 21:33
DX: F33.1 Major depressive disorder, recurrent, moderate (principal); F20.0 Paranoid schizophrenia; I10 Essential (primary) hypertension; M19.90 Unspecified osteoarthritis, unspecified site; G43.909 Migraine, unspecified, not intractable, without status migrainosus; F41.1 Generalized anxiety disorder; G89.29 Other chronic pain; M54.9 Dorsalgia, unspecified
CPT/HCPCS: 99284

== ENCOUNTER 2019-03-04 15:03 | Inpatient (IN) | payer MEDICAID ==
[~2019-03-04] VITALS: Ht 190.5 cm; Wt 137.8 kg
[2019-03-04] MEDS ORDERED: ONDANSETRON ODT 4 MG PO PRN (15:30)
[2019-03-04] MEDS ORDERED: DOCUSATE 100 MG CAPSULE PO PRN (15:30)
[2019-03-04] MEDS ORDERED: METHOCARBAMOL 500 MG TABLET PO PRN (16:00)
[2019-03-04] MEDS: PLEASE ENTER HEIGHT AND WEIGHT MC SCH (17:30)
[2019-03-04] MEDS ORDERED: PLEASE ENTER ALLERGIES MC SCH ×2 (17:30)
[2019-03-04] MEDS ORDERED: PLEASE ENTER HEIGHT AND WEIGHT MC SCH (17:30)
[2019-03-04 17:31] VITALS: BP 121/72
[2019-03-04] MEDS: IBUPROFEN 200 MG TABLET PO PRN (19:21)
[2019-03-04] MEDS: LORazepam 1MG TABLET PO PRN (19:21)
[2019-03-04 19:24] VITALS: BP 120/73
[2019-03-04] MEDS: OLANZAPINE 10 MG TABLET PO SCH (20:31)
[2019-03-04] MEDS: TRAZODONE 150MG TABLET PO SCH (20:31)
[2019-03-04] MEDS: PRAZOSIN 1 MG CAPSULE PO SCH (20:32)
[2019-03-04] MEDS ORDERED: OLANZAPINE 10 MG TABLET PO SCH (21:00)
[2019-03-05] MEDS: PLEASE ENTER HEIGHT AND WEIGHT MC SCH ×2 (01:30→04:25)
[2019-03-05 06:15] LABS: BASOPHILS # (AUTO) 0.03 x10^3/uL (0-0.1); BASOPHILS % (AUTO) 0 % (0-1); EOSINOPHILS # (AUTO) 0.47 x10^3/uL (0-0.4); EOSINOPHILS % (AUTO) 6 % (1-7); LYMPHOCYTES # (AUTO) 2.92 x10^3/uL (1-3.4); LYMPHOCYTES % (AUTO) 37 % (22-44); MD NO; MEAN CORPUSCULAR HEMOGLOBIN 31.7 pg (27.5-34.5); MEAN CORPUSCULAR VOLUME 96.1 fL (81-97); MEAN PLATELET VOLUME 9.8 fL (7.4-10.4); MONOCYTES # (AUTO) 0.54 x10^3/uL (0.2-0.8); MONOCYTES % (AUTO) 7 % (2-9); NEUTROPHILS # (AUTO) 3.98 x10^3/uL (1.8-6.8); NEUTROPHILS % (AUTO) 50 % (42-75); PLATELET COUNT 216 x10^3/uL (130-400); RED BLOOD COUNT 4.91 x10^6/uL (4.38-5.82); RED CELL DISTRIBUTION WIDTH 14.3 % (9.4-14.8)
[2019-03-05 06:24] LABS: ALANINE AMINOTRANSFERASE 25 U/L (12-78); ALBUMIN 3.2 g/dL (3.4-5.0); ANION GAP 4 mmol/L (5-15); CALCIUM 8.4 mg/dL (8.5-10.1); CHLORIDE 112 mmol/L (98-107); CREATININE 0.97 mg/dL (0.7-1.3)
[2019-03-05 06:27] LABS: ALKALINE PHOSPHATASE 82 U/L (45-117); BILIRUBIN,TOTAL 0.8 mg/dL (0.2-1.0); TOTAL PROTEIN 6.6 g/dL (6.4-8.2)
[2019-03-05 07:27] VITALS: BP 100/61
[2019-03-05] MEDS: SENNA/DOCUSATE TABLET PO SCH (09:00)
[2019-03-05] MEDS: NICOTINE 14MG/24 HR PATCH.TD24 TD SCH (09:21)
[2019-03-05] MEDS: IBUPROFEN 200 MG TABLET PO PRN ×2 (09:22→15:29)
[2019-03-05] MEDS: EZETIMIBE 10 MG TABLET PO SCH (09:22)
[2019-03-05] MEDS: LORazepam 1MG TABLET PO PRN ×2 (09:32→20:16)
[2019-03-05 18:07] LABS: MICROSCOPIC NOT IND
[2019-03-05 18:25] LABS: CULTURE INDICATED? NO
[2019-03-05] MEDS: OLANZAPINE 10 MG TABLET PO SCH (20:16)
[2019-03-05] MEDS: PRAZOSIN 1 MG CAPSULE PO SCH (20:16)
[2019-03-05] MEDS: ACETAMINOPHEN 325 MG TABLET PO PRN (20:16)
[2019-03-05] MEDS: TRAZODONE 150MG TABLET PO SCH (20:16)
[2019-03-05 20:37] VITALS: BP 137/81
[2019-03-06 07:25] VITALS: BP 115/70
[2019-03-06] MEDS: EZETIMIBE 10 MG TABLET PO SCH (09:21)
[2019-03-06] MEDS: SENNA/DOCUSATE TABLET PO SCH (09:21)
[2019-03-06] MEDS: LORazepam 1MG TABLET PO PRN ×2 (09:22→18:39)
[2019-03-06] MEDS: NICOTINE 14MG/24 HR PATCH.TD24 TD SCH (09:22)
[2019-03-06] MEDS: IBUPROFEN 200 MG TABLET PO PRN ×2 (09:22→20:09)
[2019-03-06 20:00] VITALS: BP 128/73
[2019-03-06] MEDS: OLANZAPINE 10 MG TABLET PO SCH (20:08)
[2019-03-06] MEDS: PRAZOSIN 1 MG CAPSULE PO SCH (20:09)
[2019-03-06] MEDS: TRAZODONE 150MG TABLET PO SCH (20:09)
[2019-03-07 07:30] VITALS: BP 122/79
[2019-03-07] MEDS: EZETIMIBE 10 MG TABLET PO SCH (08:52)
[2019-03-07] MEDS: IBUPROFEN 200 MG TABLET PO PRN (08:52)
[2019-03-07] MEDS: NICOTINE 14MG/24 HR PATCH.TD24 TD SCH (08:52)
[2019-03-07] MEDS: SENNA/DOCUSATE TABLET PO SCH (08:52)
[2019-03-07] MEDS: LORazepam 1MG TABLET PO PRN ×3 (08:52→20:06)
[2019-03-07] MEDS: OLANZAPINE ODT 10MG PO PRN (15:52)
[2019-03-07 19:56] VITALS: BP 125/87
[2019-03-07] MEDS: OLANZAPINE 10 MG TABLET PO SCH (20:06)
[2019-03-07] MEDS: PRAZOSIN 1 MG CAPSULE PO SCH (20:06)
[2019-03-07] MEDS: ACETAMINOPHEN 325 MG TABLET PO PRN (20:07)
[2019-03-07] MEDS: TRAZODONE 150MG TABLET PO SCH (20:07)
[2019-03-08 07:26] VITALS: BP 130/78
[2019-03-08] MEDS: NICOTINE 14MG/24 HR PATCH.TD24 TD SCH ×2 (09:00→09:09)
[2019-03-08] MEDS: SENNA/DOCUSATE TABLET PO SCH (09:09)
[2019-03-08] MEDS: EZETIMIBE 10 MG TABLET PO SCH (09:09)
[2019-03-08] MEDS: IBUPROFEN 200 MG TABLET PO PRN ×2 (09:11→20:26)
[2019-03-08] MEDS: FLUOXETINE 10 MG CAP PO SCH (13:15)
[2019-03-08] MEDS: OLANZAPINE ODT 10MG PO PRN (15:29)
[2019-03-08] MEDS: LORazepam 1MG TABLET PO PRN ×2 (15:29→20:30)
[2019-03-08 20:00] VITALS: BP 128/77
[2019-03-08] MEDS: PRAZOSIN 1 MG CAPSULE PO SCH (20:26)
[2019-03-08] MEDS: TRAZODONE 150MG TABLET PO SCH (20:26)
[2019-03-08] MEDS: OLANZAPINE 10 MG TABLET PO SCH (20:26)
[2019-03-09 07:30] VITALS: BP 104/69
[2019-03-09] MEDS: SENNA/DOCUSATE TABLET PO SCH (08:19)
[2019-03-09] MEDS: FLUOXETINE 10 MG CAP PO SCH (08:19)
[2019-03-09] MEDS: EZETIMIBE 10 MG TABLET PO SCH (08:19)
[2019-03-09] MEDS: NICOTINE 14MG/24 HR PATCH.TD24 TD SCH (08:22)
[2019-03-09] MEDS: LORazepam 1MG TABLET PO PRN ×2 (12:36→20:33)
[2019-03-09 19:43] VITALS: BP 120/69
[2019-03-09] MEDS: OLANZAPINE 10 MG TABLET PO SCH (20:33)
[2019-03-09] MEDS: TRAZODONE 150MG TABLET PO SCH (20:33)
[2019-03-09] MEDS: ACETAMINOPHEN 325 MG TABLET PO PRN (20:33)
[2019-03-09] MEDS: PRAZOSIN 1 MG CAPSULE PO SCH (21:18)
[2019-03-10 07:28] VITALS: BP 103/68
[2019-03-10] MEDS: EZETIMIBE 10 MG TABLET PO SCH (08:43)
[2019-03-10] MEDS: IBUPROFEN 200 MG TABLET PO PRN (08:43)
[2019-03-10] MEDS: NICOTINE 14MG/24 HR PATCH.TD24 TD SCH ×2 (08:43→11:35)
[2019-03-10] MEDS: SENNA/DOCUSATE TABLET PO SCH (08:43)
[2019-03-10] MEDS: FLUOXETINE 10 MG CAP PO SCH (08:43)
[2019-03-10] MEDS: LORazepam 1MG TABLET PO PRN (16:58)
[2019-03-10 19:37] VITALS: BP 133/75
[2019-03-10] MEDS: OLANZAPINE 10 MG TABLET PO SCH (20:20)
[2019-03-10] MEDS: TRAZODONE 150MG TABLET PO SCH (20:21)
[2019-03-10] MEDS: PRAZOSIN 1 MG CAPSULE PO SCH (20:21)
[2019-03-11 07:25] VITALS: BP 126/71
[2019-03-11] MEDS: FLUOXETINE 10 MG CAP PO SCH (09:24)
[2019-03-11] MEDS: NICOTINE 14MG/24 HR PATCH.TD24 TD SCH (09:24)
[2019-03-11] MEDS: EZETIMIBE 10 MG TABLET PO SCH (09:24)
[2019-03-11] MEDS: OLANZAPINE ODT 10MG PO PRN (09:26)
[2019-03-11] MEDS: LORazepam 1MG TABLET PO PRN ×3 (09:31→20:18)
[2019-03-11] MEDS: SENNA/DOCUSATE TABLET PO SCH (09:33)
[2019-03-11] MEDS: IBUPROFEN 200 MG TABLET PO PRN (15:58)
[2019-03-11] MEDS ORDERED: OLAN10TA9 PO (16:10)
[2019-03-11] MEDS ORDERED: EZET10TA18 PO (16:10)
[2019-03-11] MEDS ORDERED: NICO-486 TD (16:10)
[2019-03-11] MEDS ORDERED: TRAZ150T62 PO (16:10)
[2019-03-11] MEDS ORDERED: FLUO10CA7 PO (16:10)
[2019-03-11] MEDS ORDERED: PRAZ1CAP2 PO (16:10)
[2019-03-11 19:25] VITALS: BP 148/87
[2019-03-11] MEDS: PRAZOSIN 1 MG CAPSULE PO SCH (20:18)
[2019-03-11] MEDS: OLANZAPINE 10 MG TABLET PO SCH (20:18)
[2019-03-11] MEDS: TRAZODONE 150MG TABLET PO SCH (20:18)
[2019-03-11] MEDS: ACETAMINOPHEN 325 MG TABLET PO PRN (20:19)
[2019-03-12 07:19] VITALS: BP 113/70
[2019-03-12] MEDS: EZETIMIBE 10 MG TABLET PO SCH (08:12)
[2019-03-12] MEDS: FLUOXETINE 10 MG CAP PO SCH (08:12)
[2019-03-12] MEDS: NICOTINE 14MG/24 HR PATCH.TD24 TD SCH (08:12)
[2019-03-12] MEDS: SENNA/DOCUSATE TABLET PO SCH (08:12)
[2019-03-12] MEDS: LORazepam 1MG TABLET PO PRN (08:16)
== END 2019-03-12 09:00 | disposition home or self-care (01) | DRG 885 ==
LOC: 3E 16:58
PROVIDERS: ADMIT Psychiatry & Neurology Psychosomatic Medicine; ATTEND Psychiatry & Neurology Psychosomatic Medicine
DX: F25.0 Schizoaffective disorder, bipolar type (principal); F15.20 Other stimulant dependence, uncomplicated; Z88.8 Allergy status to other drugs, medicaments and biological substances; F17.210 Nicotine dependence, cigarettes, uncomplicated; G47.00 Insomnia, unspecified; G89.29 Other chronic pain; M54.9 Dorsalgia, unspecified; M54.2 Cervicalgia; I10 Essential (primary) hypertension; Z59.0 Homelessness; Z79.899 Other long term (current) drug therapy; Z81.8 Family history of other mental and behavioral disorders; Z91.19 Patient's noncompliance with other medical treatment and regimen
CPT/HCPCS: 36415; 80053; 81003; 85025; 93005

== ENCOUNTER 2019-07-25 12:57 | Inpatient (IN) | payer MEDICAID ==
[~2019-07-25] VITALS: Ht 188 cm; Wt 137.0 kg
[~2019-07-25 12:57] MED LIST changes: -EZET10TA18 PO; +EZET10TA70 PO; +FLUO10CA7 PO
[2019-07-25] MEDS ORDERED: BISACODYL 10 MG SUPP PR PRN (14:30)
[2019-07-25] MEDS ORDERED: ONDANSETRON ODT 4 MG PO PRN (14:30)
[2019-07-25] MEDS ORDERED: POLYETHYLENE GLYCOL 17 GM PACKET PO PRN (14:30)
[2019-07-25] MEDS ORDERED: DOCUSATE 100 MG CAPSULE PO PRN (14:30)
[2019-07-25] MEDS ORDERED: PLEASE ENTER HEIGHT AND WEIGHT MC SCH (17:00)
[2019-07-25] MEDS ORDERED: PLEASE ENTER ALLERGIES MC SCH (17:00)
[2019-07-25 17:31] VITALS: BP 158/81
[2019-07-25] MEDS ORDERED: LORazepam 1MG TABLET ONE (18:05)
[2019-07-25] MEDS: LORazepam 1MG TABLET PO PRN (18:07)
[2019-07-25 19:20] VITALS: BP 147/83
[2019-07-25] MEDS: PRAZOSIN 1 MG CAPSULE PO SCH (20:11)
[2019-07-25] MEDS: TRAZODONE 150MG TABLET PO SCH (20:11)
[2019-07-25] MEDS: OLANZAPINE 10 MG TABLET PO SCH (20:11)
[2019-07-26 05:37] LABS: BASOPHILS # (AUTO) 0.04 x10^3/uL (0-0.1); BASOPHILS % (AUTO) 1 % (0-1); EOSINOPHILS # (AUTO) 0.49 x10^3/uL (0-0.4); EOSINOPHILS % (AUTO) 6 % (1-7); LYMPHOCYTES # (AUTO) 2.35 x10^3/uL (1-3.4); LYMPHOCYTES % (AUTO) 27 % (22-44); MD NO; MEAN CORPUSCULAR HEMOGLOBIN 31.2 pg (27.5-34.5); MEAN CORPUSCULAR HGB CONC 33.2 g/dL (33.2-36.2); MEAN CORPUSCULAR VOLUME 93.8 fL (81-97); MEAN PLATELET VOLUME 8.6 fL (7.4-10.4); MONOCYTES # (AUTO) 0.85 x10^3/uL (0.2-0.8); MONOCYTES % (AUTO) 10 % (2-9); NEUTROPHILS # (AUTO) 4.96 x10^3/uL (1.8-6.8); NEUTROPHILS % (AUTO) 57 % (42-75); PLATELET COUNT 232 x10^3/uL (130-400); RED BLOOD COUNT 5.03 x10^6/uL (4.38-5.82); RED CELL DISTRIBUTION WIDTH 14.1 % (9.4-14.8)
[2019-07-26 05:49] LABS: ALBUMIN 3.2 g/dL (3.4-5.0); ANION GAP 5 mmol/L (5-15); CALCIUM 8.5 mg/dL (8.5-10.1); CHLORIDE 110 mmol/L (98-107)
[2019-07-26 05:58] LABS: ALANINE AMINOTRANSFERASE 30 U/L (12-78); ALKALINE PHOSPHATASE 79 U/L (45-117); BILIRUBIN,TOTAL 0.3 mg/dL (0.2-1.0); CHOL/HDL RATIO 6.6; CHOLESTEROL, TOTAL 212 mg/dL (140-239); CREATININE 0.99 mg/dL (0.7-1.3); FREE T4 (FREE THYROXINE) 0.93 ng/dL (0.76-1.46); HDL CHOL % 15 % (26-37); HDL CHOLESTEROL (DIRECT) 32 mg/dL (40-60); LDL CHOLESTEROL,CALCULATED 126 mg/dL (54-169); LDL/HDL RATIO 3.9 (0.5-3.0); TOTAL PROTEIN 6.7 g/dL (6.4-8.2); TRIGLYCERIDES 269 mg/dL (50-200); VLDL CHOLESTEROL 54 mg/dL (0-25)
[2019-07-26 07:16] VITALS: BP 128/89
[2019-07-26] MEDS: EZETIMIBE 10 MG TABLET PO SCH (08:15)
[2019-07-26] MEDS: FLUOXETINE 10 MG CAP PO SCH (08:15)
[2019-07-26] MEDS: NICOTINE 14MG/24 HR PATCH.TD24 TD SCH (08:18)
[2019-07-26] MEDS: LORazepam 1MG TABLET PO PRN ×2 (09:07→14:53)
[2019-07-26 17:16] LABS: MICROSCOPIC NOT IND
[2019-07-26 17:18] LABS: CULTURE INDICATED? NO
[2019-07-26] MEDS: TRAZODONE 150MG TABLET PO SCH (19:31)
[2019-07-26] MEDS: ACETAMINOPHEN 325 MG TABLET PO PRN (19:31)
[2019-07-26] MEDS: OLANZAPINE 10 MG TABLET PO SCH (19:31)
[2019-07-26] MEDS: PRAZOSIN 1 MG CAPSULE PO SCH (19:31)
[2019-07-26 19:46] VITALS: BP 136/78
[2019-07-27 07:11] VITALS: BP 108/74
[2019-07-27] MEDS: FLUOXETINE 10 MG CAP PO SCH (08:30)
[2019-07-27] MEDS: EZETIMIBE 10 MG TABLET PO SCH (08:30)
[2019-07-27] MEDS: LORazepam 1MG TABLET PO PRN ×2 (08:55→20:53)
[2019-07-27] MEDS: NICOTINE 14MG/24 HR PATCH.TD24 TD SCH (09:00)
[2019-07-27] MEDS: PRAZOSIN 1 MG CAPSULE PO SCH (20:11)
[2019-07-27] MEDS: OLANZAPINE 10 MG TABLET PO SCH (20:11)
[2019-07-27] MEDS: TRAZODONE 150MG TABLET PO SCH (20:11)
[2019-07-28 07:12] VITALS: BP 110/80
[2019-07-28] MEDS: EZETIMIBE 10 MG TABLET PO SCH (08:13)
[2019-07-28] MEDS: LORazepam 1MG TABLET PO PRN ×2 (08:13→20:40)
[2019-07-28] MEDS: FLUOXETINE 10 MG CAP PO SCH (08:13)
[2019-07-28] MEDS: ACETAMINOPHEN 325 MG TABLET PO PRN (08:17)
[2019-07-28] MEDS: NICOTINE 14MG/24 HR PATCH.TD24 TD SCH (09:00)
[2019-07-28 19:08] VITALS: BP 140/82
[2019-07-28] MEDS: PRAZOSIN 1 MG CAPSULE PO SCH (20:36)
[2019-07-28] MEDS: TRAZODONE 150MG TABLET PO SCH (20:36)
[2019-07-28] MEDS: OLANZAPINE 10 MG TABLET PO SCH (20:36)
[2019-07-29 07:05] VITALS: BP 150/89
[2019-07-29] MEDS: LORazepam 1MG TABLET PO PRN ×3 (08:53→20:42)
[2019-07-29] MEDS: FLUOXETINE 10 MG CAP PO SCH (08:53)
[2019-07-29] MEDS: NICOTINE 14MG/24 HR PATCH.TD24 TD SCH (08:53)
[2019-07-29] MEDS: EZETIMIBE 10 MG TABLET PO SCH (08:53)
[2019-07-29 19:15] VITALS: BP 152/75
[2019-07-29] MEDS: TRAZODONE 150MG TABLET PO SCH (20:42)
[2019-07-29] MEDS: PRAZOSIN 1 MG CAPSULE PO SCH (20:42)
[2019-07-29] MEDS: OLANZAPINE 10 MG TABLET PO SCH (20:42)
[2019-07-30 07:04] VITALS: BP 128/80
[2019-07-30] MEDS: EZETIMIBE 10 MG TABLET PO SCH (08:15)
[2019-07-30] MEDS: FLUOXETINE 10 MG CAP PO SCH (08:15)
[2019-07-30] MEDS: LORazepam 1MG TABLET PO PRN ×2 (08:20→19:51)
[2019-07-30] MEDS: NICOTINE 14MG/24 HR PATCH.TD24 TD SCH (08:30)
[2019-07-30] MEDS ORDERED: FLUO10CA7 PO (16:58)
[2019-07-30] MEDS ORDERED: EZET10TA48 PO (16:58)
[2019-07-30] MEDS ORDERED: PRAZ1CAP2 PO (16:58)
[2019-07-30] MEDS ORDERED: NICO-486 TD (16:58)
[2019-07-30] MEDS ORDERED: OLAN10TA9 PO (16:58)
[2019-07-30] MEDS ORDERED: LORA-446 PO (16:58)
[2019-07-30] MEDS ORDERED: TRAZ150T62 PO (16:58)
[2019-07-30 19:09] VITALS: BP 136/83
[2019-07-30] MEDS: ACETAMINOPHEN 325 MG TABLET PO PRN (19:37)
[2019-07-30] MEDS: PRAZOSIN 1 MG CAPSULE PO SCH (19:38)
[2019-07-30] MEDS: OLANZAPINE 10 MG TABLET PO SCH (19:38)
[2019-07-30] MEDS: TRAZODONE 150MG TABLET PO SCH (19:38)
[2019-07-31 07:17] VITALS: BP 135/81
[2019-07-31] MEDS: FLUOXETINE 10 MG CAP PO SCH (07:57)
[2019-07-31] MEDS: NICOTINE 14MG/24 HR PATCH.TD24 TD SCH (07:57)
[2019-07-31] MEDS: EZETIMIBE 10 MG TABLET PO SCH (07:57)
== END 2019-07-31 08:47 | disposition home or self-care (01) | DRG 750 ==
LOC: 3E 16:23
PROVIDERS: ADMIT Psychiatry & Neurology Psychosomatic Medicine; ATTEND Psychiatry & Neurology Psychosomatic Medicine
DX: F25.0 Schizoaffective disorder, bipolar type (principal); R45.851 Suicidal ideations; Z59.0 Homelessness; F15.10 Other stimulant abuse, uncomplicated; F41.9 Anxiety disorder, unspecified; G47.00 Insomnia, unspecified; K59.00 Constipation, unspecified; I10 Essential (primary) hypertension; G89.29 Other chronic pain; Z91.19 Patient's noncompliance with other medical treatment and regimen; Z81.8 Family history of other mental and behavioral disorders; Z72.89 Other problems related to lifestyle; Z88.8 Allergy status to other drugs, medicaments and biological substances; Z79.899 Other long term (current) drug therapy
CPT/HCPCS: 36415; 80053; 80061; 81003; 82140; 84439; 84443; 85025

== ENCOUNTER 2019-08-10 05:51 | Emergency (ER) | payer MEDICAID ==
[~2019-08-10] VITALS: Ht 188 cm; Wt 136.0 kg
[~2019-08-10 05:51] MED LIST changes: +EZET10TA48 PO; +LORA-446 PO
[2019-08-10 06:19] LABS: BASOPHILS # (AUTO) 0.03 x10^3/uL (0-0.1); BASOPHILS % (AUTO) 0 % (0-1); EOSINOPHILS # (AUTO) 0.55 x10^3/uL (0-0.4); EOSINOPHILS % (AUTO) 6 % (1-7); LYMPHOCYTES # (AUTO) 1.97 x10^3/uL (1-3.4); LYMPHOCYTES % (AUTO) 22 % (22-44); MD NO; MEAN CORPUSCULAR HEMOGLOBIN 31.8 pg (27.5-34.5); MEAN CORPUSCULAR HGB CONC 33.8 g/dL (33.2-36.2); MEAN CORPUSCULAR VOLUME 94.3 fL (81-97); MONOCYTES # (AUTO) 0.65 x10^3/uL (0.2-0.8); MONOCYTES % (AUTO) 7 % (2-9); NEUTROPHILS # (AUTO) 5.92 x10^3/uL (1.8-6.8); NEUTROPHILS % (AUTO) 65 % (42-75); PLATELET COUNT 280 x10^3/uL (130-400); RED BLOOD COUNT 4.96 x10^6/uL (4.38-5.82); RED CELL DISTRIBUTION WIDTH 13.8 % (9.4-14.8)
--- NOTE | 2019-08-10 06:23 | NUR ---
PT RESTING IN BED WITH SITTER AT DOOR, PT ROOM IS SI SECURED. Addendum: 08/10/19 at 1211 by GILMER PER SOC
[2019-08-10 06:32] LABS: ALANINE AMINOTRANSFERASE 31 U/L (12-78); ALBUMIN 3.3 g/dL (3.4-5.0); ANION GAP 7 mmol/L (5-15); CALCIUM 8.6 mg/dL (8.5-10.1); CHLORIDE 110 mmol/L (98-107); CREATININE 1.01 mg/dL (0.7-1.3); SALICYLATE LEVEL 2.7 mg/dL (2.8-20.0)
[2019-08-10 06:34] LABS: ALKALINE PHOSPHATASE 81 U/L (45-117); BILIRUBIN,TOTAL 0.3 mg/dL (0.2-1.0); TOTAL PROTEIN 7.1 g/dL (6.4-8.2)
--- NOTE | 2019-08-10 06:59 | NUR ---
BEDSIDE REPORT FROM KAVYA RN, PT RESTING IN [facility] IN SECURED ROOM WITH SITTER AT DOORWAY
--- NOTE | 2019-08-10 06:59 | NUR ---
URINE SAMPLE WALKED TO LAB
[2019-08-10 07:34] LABS: CULTURE INDICATED? NO; MICROSCOPIC NOT IND
[2019-08-10 07:48] LABS: AMPHETAMINE SCREEN, URINE Negative (Negative); BARBITURATE SCREEN, URINE Negative (Negative); BENZODIAZEPINE SCREEN, URINE Negative (Negative); CANNABINOID SCREEN, URINE Negative (Negative); COCAINE SCREEN, URINE Negative (Negative); METHADONE SCREEN, URINE Negative (Negative); OPIATE SCREEN, URINE Negative (Negative)
--- NOTE | 2019-08-10 08:10 | NUR ---
PT RESTING IN BED, SITTER AT DOORWAY. PT GIVEN BREAKFAST TRAY
--- NOTE | 2019-08-10 08:15 | NUR ---
THROUGHPUT: TELEPSYCH PAGED.
[2019-08-10] MEDS ORDERED: LORazepam 1MG TABLET ONE (08:17)
[2019-08-10] MEDS ORDERED: LORazepam 1MG TABLET PO ONE (08:30)
--- NOTE | 2019-08-10 08:56 | NUR ---
FAMILY WORKER - TELEPSYCH ROBOT SET UP IN ROOM.
--- NOTE | 2019-08-10 09:26 | NUR ---
REPORT TO SOC - , TELEPSYCH ROBOT IN ROOM
--- NOTE | 2019-08-10 10:03 | NUR ---
RECOMMEND INPATIENT ADMISSION. WANTS ZYPREXA 10MG AM/PM OR IM IS FINE ALSO.
[2019-08-10] MEDS ORDERED: QUETIAPINE 25MG TABLET PO ONE (10:30)
--- NOTE | 2019-08-10 11:04 | NUR ---
PT RESTING IN [facility] IN SECURED ROOM WITH SITTER AT DOORWAY.
[2019-08-10] MEDS ORDERED: QUETIAPINE 25MG TABLET ONE (11:11)
[2019-08-10] MEDS ORDERED: ZIPRASIDONE 20 MG INJ IM ONE ×3 (12:30→13:00)
--- NOTE | 2019-08-10 12:33 | NUR ---
PT GIVEN LUNCH TRAY, PT STILL AGITATED ALTHOUGH STATED SEROQUEL HELPED. NOTIFIED AGAIN OF ZYPREXA RECOMMENDATION BY SOC. PT RESTING IN [facility] IN SECURED ROOM WITH SITTER AT DOORWAY.
--- NOTE | 2019-08-10 12:44 | NUR ---
SPOKE WITH PHARMACIST LEONIE REGARDING GEODON ALLERGY, PT DENIES ALLERGY, STATES HE GETS DIZZY WHEN TAKING IT "A LOT" BUT DENIES MUSCLE CRAMPS. PA NOTIFIED ALSO. PER PHARMACY OK TO GIVE SINGLE DOSE AND MONITOR FOR MUSCLE CRAMPS, NO ADDITIONAL MONITORING NEEDED PER PHARMACIST.
--- NOTE | 2019-08-10 12:46 | NUR ---
THROUGHPUT: PER DESIREE AT [facility], PATIENT ACCEPTED. AWAITING DESIREE TO CALL BACK AFTER THEY RECEIVE THE ORDER.
--- NOTE | 2019-08-10 12:54 | NUR ---
THROUGHPUT: PER DESIREE AT [facility], PATIENT IS NOT ACCEPTED DUE TO INSURANCE.
--- NOTE | 2019-08-10 13:20 | NUR ---
THROUGHPUT: PACKET FAXED TO [facility] AND , CONFIRMATIONS SHEET RECEIVED AND PLACED IN CHART.
--- NOTE | 2019-08-10 13:30 | NUR ---
NO ADVERSE S/SXS FROM GEODON DOSE, PT SLEEPING IN GURNEY IN SECURED ROOM WITH SITTER AT DOORWAY, EQUAL CHEST RISE AND FALL
--- NOTE | 2019-08-10 14:32 | NUR ---
PT WATCHING TV IN [facility] IN SECURED ROOM WITH SITTER AT DOORWAY, EQUAL CHEST RISE AND FALL
--- NOTE | 2019-08-10 15:29 | NUR ---
PT SLEEPING IN [facility] IN SECURED ROOM WITH SITTER AT DOORWAY, EQUAL CHEST RISE AND FALL
--- NOTE | 2019-08-10 15:58 | NUR ---
HOSPITAL BED ORDERED FOR PT
[2019-08-10] MEDS ORDERED: OLANZAPINE 10 MG TABLET ONE (16:11)
--- NOTE | 2019-08-10 16:50 | NUR ---
PT SLEEPING IN HOSPITAL BED IN SECURED ROOM WITH SITTER AT DOORWAY, EQUAL CHEST RISE AND FALL
--- NOTE | 2019-08-10 17:52 | NUR ---
PT GIVEN DINNER TRAY. PT SLEEPING IN [facility] IN SECURED ROOM WITH SITTER AT DOORWAY, EQUAL CHEST RISE AND FALL
--- NOTE | 2019-08-10 19:30 | NUR ---
RECIEVED REPORT FROM KAVYA. ASSUMED CARE OF PT
[2019-08-10] MEDS ORDERED: OLANZAPINE 10 MG TABLET PO SCH (21:00)
--- NOTE | 2019-08-10 21:00 | NUR ---
PT SLEEPING, RESP EVEN AND UNLABORED. SITTER AT DOOR
--- NOTE | 2019-08-10 22:44 | NUR ---
PT SLEEPING. SITTER AT DOOR.
--- NOTE | 2019-08-11 00:30 | NUR ---
PT SLEEPING. SITTER IN AMATO
--- NOTE | 2019-08-11 01:28 | NUR ---
PT SLEEPING. RESP EVEN AND UNLABORED. SITTER IN AMATO
--- NOTE | 2019-08-11 03:48 | NUR ---
PT SLEEPING, RESP EVEN AND UNLABORED. SITTER IN AMATO
[2019-08-11] MEDS ORDERED: OLANZAPINE 10 MG TABLET ONE (05:09)
[2019-08-11] MEDS: OLANZAPINE 10 MG TABLET PO PRN (05:11)
--- NOTE | 2019-08-11 05:16 | NUR ---
ZYPREXA 10 MG PO GIVEN FOR C/O VOICES. WILL CONTINUE TO MONITOR
--- NOTE | 2019-08-11 05:58 | NUR ---
PT SLEEPING. SITTER IN AMATO
--- NOTE | 2019-08-11 07:07 | NUR ---
Received report from CHEY Al. Assumed care of pt.
--- NOTE | 2019-08-11 08:27 | NUR ---
Pt ate breakfast and now resting comfortably. No complaints. Sitter in place.
--- NOTE | 2019-08-11 09:32 | NUR ---
Pt in bed, responding to internal stimuli with some profanities. Requested Ativan. Will inform MD. Vaughn in place.
[2019-08-11] MEDS ORDERED: LORazepam 1MG TABLET ONE ×2 (10:12→18:41)
--- NOTE | 2019-08-11 10:27 | NUR ---
Pt was given Ativan 1mg PO once (for anxiety) and HCTZ 25mg PO once (for BP 144/101) this morning. Pt continues to respond to internal stimuli. Appropriate when addressing staff.
[2019-08-11] MEDS ORDERED: HYDROCHLOROTHIAZIDE 25 MG TABLET PO ONE (10:30)
[2019-08-11] MEDS ORDERED: LORazepam 1MG TABLET PO ONE ×2 (10:30→19:00)
--- NOTE | 2019-08-11 11:29 | NUR ---
Pt finally quieted down. Asked for some snacks. RN gave pt crackers and milk and informed pt that lunch will be served soon. No complaints, sitter outside door.
--- NOTE | 2019-08-11 12:17 | NUR ---
Pt ate lunch and is now resting comfortably in bed. Sitter by the door.
--- NOTE | 2019-08-11 13:19 | NUR ---
Pt quiet, resting comfortably in bed. No complaints. Pt hasn't been responding to IS for about 2 hours. Sitter within view.
--- NOTE | 2019-08-11 14:19 | NUR ---
TASK RN - PT RESTING ON BED. NADN. RESP EVEN AND UNLABORED. SITTER IN PLACE. ROOM SECURED.
--- NOTE | 2019-08-11 15:21 | NUR ---
Pt not asleep but resting comfortably in bed. Somewhat fidgety. No complaints. Sitter in place.
--- NOTE | 2019-08-11 16:30 | NUR ---
Pt is resting comfortably and quietly in bed. Occasionally yells out while responding to stimuli. Sitter at door.
--- NOTE | 2019-08-11 17:05 | NUR ---
Meal tray given to pt.
--- NOTE | 2019-08-11 17:32 | NUR ---
Pt finished his meal and is resting comfortably in bed. Sitter in place.
--- NOTE | 2019-08-11 18:29 | NUR ---
Pt used phone appropriately but with a loud voice. Sitter was there to remind him to be quieter. Pt was compliant. Went back to his room and started responding to internal stimuli again.
--- NOTE | 2019-08-11 18:44 | NUR ---
Pt was given Ativan 1mg x1 at 1842, per pt request. Pt stated his voices were loud.
--- NOTE | 2019-08-11 20:59 | NUR ---
RESTING. NO YELLING AT THIS TIME.
--- NOTE | 2019-08-11 21:19 | NUR ---
IN BED. SLEEPING. NO DISTRESS.
--- NOTE | 2019-08-11 22:10 | NUR ---
IN BED. SAFE. RESP ARE EVEN AND NON-LABORED. NO DISTRESS. NO C/O. 1:1 AT THE DOOR.
--- NOTE | 2019-08-11 22:45 | NUR ---
IN BED. SAFE. RESP ARE EVEN AND NON-LABORED. NO DISTRESS. NO C/O. 1:1 AT THE DOOR.
--- NOTE | 2019-08-11 23:41 | NUR ---
IN BED. SAFE. RESP ARE EVEN AND NON-LABORED. NO DISTRESS. NO C/O. 1:1 AT THE DOOR.
--- NOTE | 2019-08-12 01:06 | NUR ---
IN BED. SAFE. RESP ARE EVEN AND NON-LABORED. NO DISTRESS. NO C/O. 1:1 AT THE DOOR.
[2019-08-12] MEDS: OLANZAPINE 10 MG TABLET PO PRN ×2 (02:01→11:02)
[2019-08-12] MEDS ORDERED: OLANZAPINE 10 MG TABLET ONE ×2 (02:03→11:00)
--- NOTE | 2019-08-12 02:07 | NUR ---
THE PT AWOKE AND ASKED FOR HIS NIGHT TRAZADONE. EXPLAINED THAT HE GOT ATIVAN AND IT WAS TO LATE IN THE NOC FOR TRAZADONE, GIVEN PRN ZYPREXA, THE PT WAS COOPERATIVE W/ THIS PLAN AND WENT BACK TO BED W/O DIFF.
--- NOTE | 2019-08-12 02:42 | NUR ---
IN BED. SAFE. RESP ARE EVEN AND NON-LABORED. NO DISTRESS. NO C/O. 1:1 AT THE DOOR.
--- NOTE | 2019-08-12 03:45 | NUR ---
IN BED. SAFE. RESP ARE EVEN AND NON-LABORED. NO DISTRESS. NO C/O. 1:1 AT THE DOOR.
--- NOTE | 2019-08-12 04:53 | NUR ---
IN BED. SAFE. RESP ARE EVEN AND NON-LABORED. NO DISTRESS. NO C/O. 1:1 AT THE DOOR. NO YELLING BEHAVIORS AT THIS TIME.
--- NOTE | 2019-08-12 06:19 | NUR ---
IN BED, EYES CLOSED. SAFE. RESP ARE EVEN AND NON-LABORED. NO DISTRESS. NO C/O. 1:1 AT THE DOOR.
--- NOTE | 2019-08-12 06:29 | NUR ---
ROUNDS COMPLETED. PT IN BED. MOVEMENT NOTE. NO DISTRESS. ABLE TO MOVE SELF IN BED. NO C/O AT THIS TIME.
[2019-08-12 06:58] VITALS: BP 105/66
--- NOTE | 2019-08-12 07:01 | NUR ---
REPORT RECIEVED FROM ANNABEL RN, CARE ASSUMED OF PT. PT RESTING IN BED AT THIS TIME, VSS. NO NEEDS REPORTED. SITTER IN VIEW OF PT
--- NOTE | 2019-08-12 08:44 | NUR ---
BREAKFAST TRAY PROVIDED TO PT. PT GRATEFUL, COOPERATIVE WITH CARE.
--- NOTE | 2019-08-12 09:40 | NUR ---
PT CONTINUES TO REST IN BED, NAD NOTED, SI PRECAUTION REMAIN IN PLACE
--- NOTE | 2019-08-12 11:05 | NUR ---
PT STARTING TO YELL AT HIS VOICES, STATES "GET OUTTA MY HEAD YA NIGGER" PT REQUESTING PRN MEDICATION. PT MEDICATED PER MAR, GIVEN MILK AND CRACKERS PER REQUEST. PT APPRECIATIVE
--- NOTE | 2019-08-12 12:12 | NUR ---
PT GIVEN LUNCH TRAY, PT APPRECIATIVE. PT COOPERATIVE WITH CARE. PT WITH NO OTHER NEEDS, WILL CONTINUE TO MONITOR
--- NOTE | 2019-08-12 13:33 | NUR ---
PT RESTING ON BED, VISIBLE CHEST RISE AND FALL NOTED
--- NOTE | 2019-08-12 14:28 | NUR ---
LEGAL HOLD DISCONTINUED, PT GIVEN DISCHARGE INSTRUCTIONS. PT GIVEN ALL BELONGINGS ON DISCHARGE, PT STABLE ON DISCHARGE DAY
== END 2019-08-12 14:31 | disposition home or self-care (01) ==
LOC: ED 06:25
DX: F25.9 Schizoaffective disorder, unspecified (principal); M54.9 Dorsalgia, unspecified; G89.29 Other chronic pain; G43.909 Migraine, unspecified, not intractable, without status migrainosus; M19.90 Unspecified osteoarthritis, unspecified site; I10 Essential (primary) hypertension; Z72.9 Problem related to lifestyle, unspecified; F29 Unspecified psychosis not due to a substance or known physiological condition
CPT/HCPCS: 36415; 80053; 80307; 81003; 85025; 99284; J3486

== ENCOUNTER 2019-08-18 17:05 | Emergency (ER) | payer MEDICAID ==
[~2019-08-18] VITALS: Ht 188 cm; Wt 140.4 kg
--- NOTE | 2019-08-18 17:20 | NUR ---
PT STATES HE IS HI/SI AND PERFORMING FELLATIO ON MEN FOR AIRPLANES. LAST DRUG USE YESTERDAY-METH\ PLACED IN ROOM WITH PSYCHIATRIC PRECAUTIONS SITTER DIRECTLY OUTSIDE OF ROOM PATIENT CHANGED INTO HOSPITAL GOWN. BELONGING PLACED IN LOCKED BELONGINGS CABINET
[2019-08-18] MEDS ORDERED: TRAZODONE 50MG TABLET PO PRN (18:30)
[2019-08-18] MEDS ORDERED: NICOTINE 21 MG/24 HR PATCH.TD24 TD PRN (18:30)
[2019-08-18 18:53] LABS: ALBUMIN 3.5 g/dL (3.4-5.0); ANION GAP 6 mmol/L (5-15); CALCIUM 8.3 mg/dL (8.5-10.1); CHLORIDE 113 mmol/L (98-107); CREATININE 1.04 mg/dL (0.7-1.3); SALICYLATE LEVEL 3.1 mg/dL (2.8-20.0)
[2019-08-18 18:57] LABS: BASOPHILS # (AUTO) 0.06 x10^3/uL (0-0.1); BASOPHILS % (AUTO) 1 % (0-1); EOSINOPHILS # (AUTO) 0.45 x10^3/uL (0-0.4); EOSINOPHILS % (AUTO) 4 % (1-7); LYMPHOCYTES # (AUTO) 3.02 x10^3/uL (1-3.4); LYMPHOCYTES % (AUTO) 24 % (22-44); MD NO; MEAN CORPUSCULAR HEMOGLOBIN 31.6 pg (27.5-34.5); MEAN CORPUSCULAR HGB CONC 33.3 g/dL (33.2-36.2); MEAN CORPUSCULAR VOLUME 94.9 fL (81-97); MEAN PLATELET VOLUME 9.6 fL (7.4-10.4); MONOCYTES # (AUTO) 0.99 x10^3/uL (0.2-0.8); MONOCYTES % (AUTO) 8 % (2-9); NEUTROPHILS # (AUTO) 7.84 x10^3/uL (1.8-6.8); NEUTROPHILS % (AUTO) 64 % (42-75); PLATELET COUNT 265 x10^3/uL (130-400); RED BLOOD COUNT 4.91 x10^6/uL (4.38-5.82); RED CELL DISTRIBUTION WIDTH 14.4 % (9.4-14.8)
--- NOTE | 2019-08-18 18:57 | NUR ---
Pt bedside report from Milton grayson. This rn to assume care of pt. Pt resting comfortably on gurney. Nadn. roller doors in place. Sitter in hallway.
[2019-08-18] MEDS ORDERED: OLANZAPINE 10 MG TABLET ONE (18:59)
[2019-08-18] MEDS: OLANZAPINE 10 MG TABLET PO SCH (19:06)
[2019-08-18 19:16] LABS: AMPHETAMINE SCREEN, URINE Positive (Negative); BARBITURATE SCREEN, URINE Negative (Negative); BENZODIAZEPINE SCREEN, URINE Negative (Negative); CANNABINOID SCREEN, URINE Negative (Negative); COCAINE SCREEN, URINE Negative (Negative); METHADONE SCREEN, URINE Negative (Negative); OPIATE SCREEN, URINE Negative (Negative)
--- NOTE | 2019-08-18 19:18 | NUR ---
Pt given water and sprite per requested. No other immediate needs.
--- NOTE | 2019-08-18 20:04 | NUR ---
Pt yelling into the hallway "i need an ativan or i am going to go crazy" Pt saying curse words at sitter repeatedly. Pt reoriented and calmed by this rn. aware. Awaiting orders.
--- NOTE | 2019-08-18 20:44 | NUR ---
TP RN: PACKET FAXED TO [facility] AND [facility].
--- NOTE | 2019-08-18 20:48 | NUR ---
Pt report to kasey grayson.
--- NOTE | 2019-08-18 20:50 | NUR ---
REPORT FROM ANTONINA GUERRIER. PT IN ROOM. ROOM SECURED. SITTER IN VIEW OF PT
--- NOTE | 2019-08-18 20:51 | NUR ---
TP RN: CONFIRMATION FAX RECEIVED BACK FROM [facility] AND [facility].
--- NOTE | 2019-08-18 21:47 | NUR ---
PT RESTING AND APPEARS TO BE SLEEPING. PT IN NAD. SITTER IN VIEW OF PT.
--- NOTE | 2019-08-18 22:40 | NUR ---
PT REQUESTING ATIVAN. PT TOLD THAT HE DOESNT HAVE ANY ORDERED. PT OFFERED OTHER MEDICATION THAT MD HAS ORDERED. PT REFUSING OTHER MEDS. SITTER IN VIEW OF PT.
--- NOTE | 2019-08-19 | NUR ---
PT LAYING DOWN. EVEN RISE AND FALL OF CHEST OBSERVED. SITTER IN VIEW OF PT.
[2019-08-19] MEDS ORDERED: TRAZODONE 50MG TABLET ONE (00:24)
[2019-08-19] MEDS: HYDROXYZINE PAMOATE 50MG CAP PO PRN ×2 (00:52→10:11)
--- NOTE | 2019-08-19 00:53 | NUR ---
PT GIVEN A SNACLK AND PRN MEDICATION. PT BEING COOPERATIVE AND HAS NO OTHER NEEDS AT THIS TIME. SITTER IN VIEW OF PT.
--- NOTE | 2019-08-19 01:44 | NUR ---
PT SLEEPING. EVEN RISE AND FALL OF CHEST OBSERVED. SITTER IN VIEW OF PT.
--- NOTE | 2019-08-19 03:10 | NUR ---
RECEIVED REPORT FROM CHEY LAW TO ASSUME CARE OF PT. PT. RESTING ON GURNEY WITH EYES CLOSED. EVEN, NON-LABORED RESPIRATIONS VISIBLE. ROOM SECURED. SITTER IN AMATO. REQUESTED HOSPITAL BED FROM [facility].
--- NOTE | 2019-08-19 03:34 | NUR ---
PT. PROVIDED WITH URINAL; 300ML OF ANH URINE EMPTIED FROM URINAL. PT. PROVIDED WITH SPRITE(SI PRECAUTIONS) PER REQUEST. DENIES OTHER NEEDS.
--- NOTE | 2019-08-19 04:35 | NUR ---
PT. CHANGED OVER TO HOSPITAL BED AND PROVIDED WITH MORE SPRITE PER REQUEST. PT. DENIES OTHER NEEDS. PT. HAS BEEN COOPERATIVE WITH THIS RN SINCE ASSUMING CARE. ROOM REMAINS SECURED. SITTER REMAINS IN AMATO.
--- NOTE | 2019-08-19 05:38 | NUR ---
PT. RESTING ON GURNEY WITH EYES CLOSED. EVEN, NON-LABORED RESPIRATIONS VISIBLE. ROOM REMAINS SECURED. SITTER IN AMATO.
--- NOTE | 2019-08-19 07:07 | NUR ---
REPORT TO CHEY GARVIN. PT. CONTINUES RESTING ON HOSPITAL BED WITH EVEN, NON-LABORED RESPIRATIONS VISIBLE. SITTER REMAINS IN AMATO, ROOM SECURED.
--- NOTE | 2019-08-19 07:59 | NUR ---
TASK RN: PT SLEEPING IN BED. SITTER REMAINS AT BEDSIDE. ROOM REMAINS SECURE.
[2019-08-19] MEDS ORDERED: OLANZAPINE 10 MG TABLET ONE (08:32)
[2019-08-19] MEDS ORDERED: FLUOXETINE HCL 20 MG CAPSULE ONE (08:32)
[2019-08-19] MEDS: OLANZAPINE 10 MG TABLET PO SCH (08:40)
[2019-08-19] MEDS: FLUOXETINE HCL 20 MG CAPSULE PO SCH (08:40)
--- NOTE | 2019-08-19 08:48 | NUR ---
BREAKFAST AND MORNING MEDICATIONS GIVEN TO PATIENT. SUICIDE RISK REASSESSMENT DONE. PATIENT DENIES ANY SUICIDAL FEELINGS AT THIS TIME AND STATES, "I FEEL PRETTY GOOD." PT REMAINS UNDER CONSTANT SUPERVISION OF SITTER IN HALLWAY AND REMAINS SAFE.
--- NOTE | 2019-08-19 10:00 | NUR ---
PT RESTING WITH NO COMPLAINTS. PATIENT REMAINS UNDER CONSTANT SUPERVISION OF SITTER AND REMAINS SAFE.
--- NOTE | 2019-08-19 11:42 | NUR ---
LUNCH TRAY ORDERED FOR PATIENT.
--- NOTE | 2019-08-19 13:00 | NUR ---
PT RESTING WITH NO COMPLAINTS. PATIENT REMAINS UNDER CONSTANT SUPERVISION OF SITTER AND REMAINS SAFE.
--- NOTE | 2019-08-19 14:00 | NUR ---
PT RESTING WITH NO COMPLAINTS. PATIENT REMAINS UNDER CONSTANT SUPERVISION OF SITTER AND REMAINS SAFE.
--- NOTE | 2019-08-19 15:00 | NUR ---
PT RESTING WITH NO COMPLAINTS. PATIENT REMAINS UNDER CONSTANT SUPERVISION OF SITTER AND REMAINS SAFE.
--- NOTE | 2019-08-19 16:00 | NUR ---
PT RESTING WITH NO COMPLAINTS. PATIENT REMAINS UNDER CONSTANT SUPERVISION OF SITTER AND REMAINS SAFE.
--- NOTE | 2019-08-19 17:00 | NUR ---
DINNER TRAY SERVED TO PATIENT. PT RESTING WITH NO COMPLAINTS. PATIENT REMAINS UNDER CONSTANT SUPERVISION OF SITTER AND REMAINS SAFE.
--- NOTE | 2019-08-19 18:00 | NUR ---
PT RESTING WITH NO COMPLAINTS. PATIENT REMAINS UNDER CONSTANT SUPERVISION OF SITTER AND REMAINS SAFE.
--- NOTE | 2019-08-19 18:56 | NUR ---
SBAR HAND-OFF REPORT TO CHEY GRAHAM.
--- NOTE | 2019-08-19 21:31 | NUR ---
GIVEN ICE WATER. CALM & COOPERATIVE. DENIES ANY NEEDS. SITTER AT BS. WILL CTM.
--- NOTE | 2019-08-20 00:47 | NUR ---
BREAK RN: PT RESTING IN ROOM. REGULAR RESP. NO ACUTE DISTRESS NOTED. SITTER AT DOOR. WILL CONTINUE TO MONITOR WHILE PRIMARY RN IS ON BREAK.
--- NOTE | 2019-08-20 01:15 | NUR ---
T REQUESTING FOOD & DRINK. PROVIDED. CALM & COOPERATIVE. OCCASIONALLY SPEAKING TO "ARLETH" WHOM HE SEES IN HIS ROOM. SITTER REMAINS OUTSIDE OF ROOM. WILL REINA
--- NOTE | 2019-08-20 03:03 | NUR ---
PT SLEEPING. RR EVEN NON LABORED. SITTER REMAINS OUTSIDE OF ROOM. WILL CTM.
--- NOTE | 2019-08-20 04:51 | NUR ---
REPORT RECEIVED, CARE ASSUMED
--- NOTE | 2019-08-20 06:16 | NUR ---
PT SLEEPING IN SECURE ROOM, SITTER AT DOOR. PO FLUIDS AT BEDSIDE. CONT TO MONITOR
--- NOTE | 2019-08-20 06:52 | NUR ---
Received report from CHEY Fernandes. All questions answered. Assuming care of pt at this time.
--- NOTE | 2019-08-20 07:03 | NUR ---
Pt resting with eyes closed on left lateral side on hospital bed. Pt has unlabored respirations with even chest rise and fall. NADN. No needs expressed. Room remains secured for SI and HI. Sitter near doorway in direct line of sight for observation.
--- NOTE | 2019-08-20 07:42 | NUR ---
Obtained vital signs and performed physical assessment and SI re-assessment. Pt states HI and SI. Pt states, "any one who gets in my way." Pt states, "get out of my mouth fed." Pt has visual and auditory hallucinations. Pt requesting Sprite. Provided per pt request. Pt states, "Is that all of it?". Room remains secured for SI and HI with sitter near doorway in direct line of sight for observation. NADN. No other needs expressed.
[2019-08-20] MEDS ORDERED: OLANZAPINE 10 MG TABLET ONE (08:51)
[2019-08-20] MEDS ORDERED: FLUOXETINE HCL 20 MG CAPSULE ONE (08:51)
[2019-08-20] MEDS: FLUOXETINE HCL 20 MG CAPSULE PO SCH (08:58)
[2019-08-20] MEDS: OLANZAPINE 10 MG TABLET PO SCH (08:58)
--- NOTE | 2019-08-20 09:00 | NUR ---
Pt provided breakfast tray and morning medication. Pt appreciative. NADN. No other needs expressed. Sitter near doorway in direct line of sight for observation.
--- NOTE | 2019-08-20 09:30 | NUR ---
Pt resting on hospital bed on left lateral side. NADN. No needs expressed. Room remains secured for SI/HI. Sitter near doorway in direct line of sight for observation.
--- NOTE | 2019-08-20 10:47 | NUR ---
Provided report to CHEY Mccarthy from 3 E. All questions answered. CHEY Mccarthy to assume care of pt at this time. NADN. No needs expressed.
--- NOTE | 2019-08-20 11:04 | NUR ---
Beni bautista in [facility] - 08/20/19 at 1105 by HASMUKH Juan Diego
--- NOTE | 2019-08-20 11:05 | NUR ---
Assumed pt care. report received from Linda. Pt resting comfortably in [facility]. no c/o pain or discomfort at this time. Pt endorses AH/VH, stating Umm, Liseth and Herminio has been bothering him for the past 8 years. Pt verbalizes SI but no plan. he denies HI at this time. Pt is requesting for sandwich. will address pt concern.
--- NOTE | 2019-08-20 11:47 | NUR ---
Pt was given crackers and juice per request. Lunch tray ordered.
--- NOTE | 2019-08-20 12:12 | NUR ---
Pt was served his lunch tray. Pt is calm and appreciative. Sitter in kim. No needs verbalized at this time.
--- NOTE | 2019-08-20 13:05 | NUR ---
Pt quietly resting in room. No acute distress noted. Sitter by the door for observation.
--- NOTE | 2019-08-20 14:07 | NUR ---
Dinner tray ordered. Pt currently sleeping in secure room. Sitter by the door for close observation. No acute distress noted.
--- NOTE | 2019-08-20 14:27 | NUR ---
Pt requested for snacks, crackers and sprite provided. no other needs expressed. sitter by the door for close observation.
--- NOTE | 2019-08-20 15:13 | NUR ---
Pt resting in room. No acute distress noted. Sitter in the kim to continue close observation.
[2019-08-20 15:58] VITALS: BP 124/60
--- NOTE | 2019-08-20 15:58 | NUR ---
PT GIVEN CUP OF WATER, VSS, DENIES PAIN, STS FEELING SLIGHTLY BETTER.
[2019-08-20] MEDS ORDERED: hydrOXyzine 50MG TABLET ONE (16:11)
[2019-08-20] MEDS ORDERED: HYDROXYZINE PAMOATE 50MG CAP ONE (16:18)
[2019-08-20] MEDS: HYDROXYZINE PAMOATE 50MG CAP PO PRN (16:23)
--- NOTE | 2019-08-20 16:23 | NUR ---
Pt is currently responding to internal stimuli, yelling out "Fuck off Umm. Shut up!". Pt is asking for Ativan or "a shot of Haldol". Informed pt that he does not have orders for both medications but he does have PRN Vistaril ordered. Medication administered to pt, pt cooperative. Pt was also given Sprite per request. Pt is requesting to speak with psychiatrist. Will notify MD. Will continue sitter for close observation.
--- NOTE | 2019-08-20 16:44 | NUR ---
Pt is calm. Dinner tray served to pt. Pt denies any other needs at this time. Sitter in the kim to continue close observation.
--- NOTE | 2019-08-20 17:08 | NUR ---
Pt is watching TV, calm and quiet. No acute distress noted. No needs verbalized at this time. Sitter in the hallway to continue close observation.
--- NOTE | 2019-08-20 18:05 | NUR ---
Pt resting in secure room. No acute distress noted. Sitter by the door to continue close observation.
--- NOTE | 2019-08-20 18:52 | NUR ---
Pt discharged to care of self per MD orders. Discharge instructions discussed with patient, verbalized understanding. Prescription and discharge packet sent with pt. Belongings returned to pt upon discharge.
== END 2019-08-20 20:32 | disposition home or self-care (01) ==
LOC: ED 17:20
DX: R45.851 Suicidal ideations (principal); F25.9 Schizoaffective disorder, unspecified; Z72.9 Problem related to lifestyle, unspecified; F41.1 Generalized anxiety disorder; M19.90 Unspecified osteoarthritis, unspecified site; F32.9 Major depressive disorder, single episode, unspecified; I10 Essential (primary) hypertension; Z88.8 Allergy status to other drugs, medicaments and biological substances
CPT/HCPCS: 36415; 80048; 80307; 82040; 85025; 99284

== ENCOUNTER 2019-08-23 21:13 | Emergency (ER) | payer MEDICAID ==
[~2019-08-23] VITALS: Ht 193 cm; Wt 140.0 kg
[2019-08-23 21:24] VITALS: BP 106/67
== END 2019-08-23 21:36 | disposition home or self-care (01) ==
LOC: ED 21:30
DX: F25.9 Schizoaffective disorder, unspecified (principal); Z72.9 Problem related to lifestyle, unspecified; I11.0 Hypertensive heart disease with heart failure; F32.9 Major depressive disorder, single episode, unspecified; F17.200 Nicotine dependence, unspecified, uncomplicated
CPT/HCPCS: 99284

== ENCOUNTER 2019-10-05 04:01 | Emergency (ER) | payer MEDICAID, OTHER ==
[~2019-10-05] VITALS: Ht 188 cm; Wt 145.0 kg
[2019-10-05 04:06] VITALS: BP 125/61
--- NOTE | 2019-10-05 04:16 | NUR ---
BIB EMS WITH REPORTS OF SI/HI. REPORTS DESIRE TO "GET $1000 TO BUY METH AND THEN JUMP OFF A BRIDGE". PT RESPONDS TO INTERNAL STIMULI, REPORTS THEY TELL HIM TO HURT OTHERS. REPORTS USING METH YESTERDAY AND A HX OF CUTTING WRISTS. PT PRESCRIBED XYPREXA, TRAZADONE, AND ATIVAN, HAS TAKEN THEM OFF AND ON FOR X1 MONTH. BS 209. PT VSS. ROOM SECURED. ALL SAFETY MEASURES IN PLACE.
[2019-10-05 05:39] LABS: CHLORIDE 108 mmol/L (98-107)
[2019-10-05 05:48] LABS: ALANINE AMINOTRANSFERASE 40 U/L (12-78); ALBUMIN 3.4 g/dL (3.4-5.0); ALKALINE PHOSPHATASE 84 U/L (45-117); ANION GAP 7 mmol/L (5-15); BILIRUBIN,TOTAL 0.7 mg/dL (0.2-1.0); CALCIUM 8.3 mg/dL (8.5-10.1); SALICYLATE LEVEL 2.4 mg/dL (2.8-20.0)
--- NOTE | 2019-10-05 06:11 | NUR ---
ALL PT BELONGINGS PLACED INTO ONE BAG AND PLACED IN LOCKER. ROOM SECURED AND SITTER AT BEDSIDE FOR FREQUENT CHECK. PT CALM AND COOPERATIVE, NO RESTING ON GURNEY WITH EYES CLOSED, RESPIRATIONS EVEN AND UNLABORED. Addendum: 10/05/19 at 0612 by BDICECCO NOW RESTING*
[2019-10-05 06:20] LABS: BASOPHILS # (AUTO) 0.04 x10^3/uL (0-0.1); BASOPHILS % (AUTO) 0 % (0-1); EOSINOPHILS # (AUTO) 0.43 x10^3/uL (0-0.4); EOSINOPHILS % (AUTO) 4 % (1-7); LYMPHOCYTES # (AUTO) 2.24 x10^3/uL (1-3.4); LYMPHOCYTES % (AUTO) 20 % (22-44); MD NO; MEAN CORPUSCULAR HEMOGLOBIN 31.5 pg (27.5-34.5); MEAN CORPUSCULAR HGB CONC 33.4 g/dL (33.2-36.2); MEAN CORPUSCULAR VOLUME 94.3 fL (81-97); MEAN PLATELET VOLUME 9.4 fL (7.4-10.4); MONOCYTES # (AUTO) 0.96 x10^3/uL (0.2-0.8); MONOCYTES % (AUTO) 9 % (2-9); NEUTROPHILS # (AUTO) 7.64 x10^3/uL (1.8-6.8); NEUTROPHILS % (AUTO) 68 % (42-75); PLATELET COUNT 242 x10^3/uL (130-400); RED BLOOD COUNT 4.89 x10^6/uL (4.38-5.82); RED CELL DISTRIBUTION WIDTH 14.4 % (9.4-14.8)
[2019-10-05 06:23] LABS: AMPHETAMINE SCREEN, URINE Positive (Negative); BARBITURATE SCREEN, URINE Negative (Negative); BENZODIAZEPINE SCREEN, URINE Negative (Negative); CANNABINOID SCREEN, URINE Negative (Negative); COCAINE SCREEN, URINE Negative (Negative); METHADONE SCREEN, URINE Negative (Negative); OPIATE SCREEN, URINE Negative (Negative)
--- NOTE | 2019-10-05 06:30 | NUR ---
PT ASKING FOR HIS HOME MEDS ZYPREXA, TRAZADONE, ATIVAN. ER MD ACOSTA INFORMED. PT ALSO STATES THAT HE HAS BEEN OFF OF HIS MEDICATIONS FOR OVER A MONTH.
== END 2019-10-05 07:14 | disposition home or self-care (01) ==
LOC: ED 05:50
DX: F32.9 Major depressive disorder, single episode, unspecified (principal); F15.10 Other stimulant abuse, uncomplicated; Z76.0 Encounter for issue of repeat prescription; I10 Essential (primary) hypertension; G43.909 Migraine, unspecified, not intractable, without status migrainosus; Z72.9 Problem related to lifestyle, unspecified
CPT/HCPCS: 36415; 80053; 80307; 85025; 99283

== ENCOUNTER 2019-12-23 18:10 | Emergency (ER) | payer MEDICAID, OTHER ==
[~2019-12-23] VITALS: Ht 190.5 cm; Wt 141.0 kg
[~2019-12-23 18:10] MED LIST changes: +FLUO10CA14 PO; -FLUO10CA7 PO; +SIMV20TA19 PO; -SIMV20TA3 PO; -TRAZ-137 PO; +TRAZ-175 PO
[2019-12-23 18:14] VITALS: BP 137/85
[2019-12-23] MEDS ORDERED: LIDOCAINE-MPF 1%, 5ML ONE (18:36)
--- NOTE | 2019-12-23 19:29 | NUR ---
REPORT FROM MIRACLE THACKER RN.
== END 2019-12-23 19:54 | disposition home or self-care (01) ==
LOC: ED 19:35
DX: R45.851 Suicidal ideations (principal); Z76.0 Encounter for issue of repeat prescription; F20.9 Schizophrenia, unspecified; G89.29 Other chronic pain; F17.200 Nicotine dependence, unspecified, uncomplicated
CPT/HCPCS: 99283

== ENCOUNTER 2020-01-14 18:32 | Emergency (ER) | payer MEDICAID ==
[~2020-01-14] VITALS: Ht 185.4 cm; Wt 141.0 kg
[2020-01-14 18:44] VITALS: BP 145/93
--- NOTE | 2020-01-14 18:51 | NUR ---
Spoke with Jane from D as Dr. Jones has requested that [employer] be called as patient screamed "I fuck little kids in the ass!"
== END 2020-01-14 19:30 | disposition left against medical advice (07) ==
LOC: ED 18:40
DX: F29 Unspecified psychosis not due to a substance or known physiological condition (principal); F17.200 Nicotine dependence, unspecified, uncomplicated
CPT/HCPCS: 99283

== ENCOUNTER 2020-01-23 19:19 | Emergency (ER) | payer MEDICAID ==
[~2020-01-23] VITALS: Ht 188 cm; Wt 120.0 kg
[2020-01-23 19:28] VITALS: BP 130/74
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
== END 2020-01-23 20:40 | disposition home or self-care (01) ==
LOC: ED 19:44
DX: F15.10 Other stimulant abuse, uncomplicated (principal); G43.909 Migraine, unspecified, not intractable, without status migrainosus; R45.851 Suicidal ideations; F32.9 Major depressive disorder, single episode, unspecified
CPT/HCPCS: 99283

== ENCOUNTER 2020-06-26 01:13 | Emergency (ER) | payer MEDICAID ==
[~2020-06-26] VITALS: Ht 185.4 cm; Wt 130.0 kg
[2020-06-26 01:24] VITALS: BP 124/78
[2020-06-26] MEDS ORDERED: LORazepam 1MG TABLET PO ONE (01:30)
[2020-06-26 01:46] LABS: BASOPHILS # (AUTO) 0.09 x10^3/uL (0-0.1); BASOPHILS % (AUTO) 1 % (0-1); EOSINOPHILS # (AUTO) 0.64 x10^3/uL (0-0.4); EOSINOPHILS % (AUTO) 6 % (1-7); LYMPHOCYTES # (AUTO) 2.81 x10^3/uL (1-3.4); LYMPHOCYTES % (AUTO) 24 % (22-44); MD NO; MEAN CORPUSCULAR HEMOGLOBIN 30.3 pg (27.5-34.5); MEAN CORPUSCULAR HGB CONC 32.6 g/dL (33.2-36.2); MEAN CORPUSCULAR VOLUME 92.7 fL (81-97); MEAN PLATELET VOLUME 8.8 fL (7.4-10.4); MONOCYTES # (AUTO) 0.82 x10^3/uL (0.2-0.8); MONOCYTES % (AUTO) 7 % (2-9); NEUTROPHILS # (AUTO) 7.19 x10^3/uL (1.8-6.8); NEUTROPHILS % (AUTO) 62 % (42-75); PLATELET COUNT 272 x10^3/uL (130-400); RED BLOOD COUNT 4.92 x10^6/uL (4.38-5.82); RED CELL DISTRIBUTION WIDTH 14.7 % (9.4-14.8)
[2020-06-26 01:55] LABS: ALBUMIN 3.4 g/dL (3.4-5.0); ANION GAP 7 mmol/L (5-15); CALCIUM 8.6 mg/dL (8.5-10.1); CHLORIDE 110 mmol/L (98-107); CREATININE 0.89 mg/dL (0.7-1.3)
--- NOTE | 2020-06-26 02:29 | NUR ---
Pt left AMA with verbal consent from ED provider. Pt ambulated out of ED independently, steady gait
== END 2020-06-26 02:37 | disposition left against medical advice (07) ==
LOC: ED 01:43
DX: F41.1 Generalized anxiety disorder (principal); Z72.9 Problem related to lifestyle, unspecified; R45.851 Suicidal ideations; R45.850 Homicidal ideations; M19.90 Unspecified osteoarthritis, unspecified site; F20.9 Schizophrenia, unspecified; F17.290 Nicotine dependence, other tobacco product, uncomplicated
CPT/HCPCS: 36415; 80048; 80307; 82040; 85025; 99283; 99406

== ENCOUNTER 2020-08-10 11:48 | Emergency (ER) | payer MEDICAID ==
[~2020-08-10] VITALS: Ht 188 cm; Wt 136.3 kg
[~2020-08-10 11:48] MED LIST changes: -FLUO10CA14 PO; +FLUO10CA15 PO
[2020-08-10] MEDS ORDERED: CHLO200T2 PO (12:07)
[2020-08-10] MEDS ORDERED: QUET300T PO (12:07)
[2020-08-10] MEDS ORDERED: BENZ1TAB61 PO (12:07)
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
--- NOTE | 2020-08-10 12:18 | NUR ---
PT GIVEN MULTIPLE WARM BLANKETS PER REQUEST. UA OBTAINED AND TUBED TO LAB. SITTER IN PLACE.
[2020-08-10 12:39] LABS: BASOPHILS % (AUTO) 1 % (0-1); EOSINOPHILS % (AUTO) 4 % (1-7); LYMPHOCYTES % (AUTO) 24 % (22-44); MEAN CORPUSCULAR HEMOGLOBIN 30.7 pg (27.5-34.5); MEAN CORPUSCULAR HGB CONC 33.1 g/dL (33.2-36.2); MEAN PLATELET VOLUME 8.8 fL (7.4-10.4); MONOCYTES % (AUTO) 8 % (2-9); NEUTROPHILS % (AUTO) 63 % (42-75); PLATELET COUNT 252 x10^3/uL (130-400); RED BLOOD COUNT 4.95 x10^6/uL (4.38-5.82); RED CELL DISTRIBUTION WIDTH 14.3 % (9.4-14.8)
[2020-08-10 12:46] LABS: AMPHETAMINE SCREEN, URINE Negative (Negative); BARBITURATE SCREEN, URINE Negative (Negative); BENZODIAZEPINE SCREEN, URINE Negative (Negative); CANNABINOID SCREEN, URINE Negative (Negative); COCAINE SCREEN, URINE Negative (Negative); METHADONE SCREEN, URINE Negative (Negative)
[2020-08-10 12:47] LABS: OPIATE SCREEN, URINE Negative (Negative)
[2020-08-10 12:48] LABS: ALBUMIN 3.6 g/dL (3.4-5.0); ANION GAP 5 mmol/L (5-15); CALCIUM 8.4 mg/dL (8.5-10.1); CHLORIDE 110 mmol/L (98-107); SALICYLATE LEVEL 2.5 mg/dL (2.8-20.0)
[2020-08-10 12:52] LABS: ALANINE AMINOTRANSFERASE 27 U/L (12-78); ALKALINE PHOSPHATASE 104 U/L (45-117); BILIRUBIN,TOTAL 0.4 mg/dL (0.2-1.0); CREATININE 1.01 mg/dL (0.7-1.3); TOTAL PROTEIN 7.3 g/dL (6.4-8.2)
[2020-08-10 13:00] LABS: MD NO
[2020-08-10 15:11] VITALS: BP 132/74
== END 2020-08-10 15:13 | disposition home or self-care (01) ==
LOC: ED 13:44
DX: F15.150 Other stimulant abuse with stimulant-induced psychotic disorder with delusions (principal); I49.8 Other specified cardiac arrhythmias; R45.851 Suicidal ideations; F25.9 Schizoaffective disorder, unspecified
CPT/HCPCS: 36415; 80053; 80307; 85025; 93005; 99284

== ENCOUNTER 2020-09-23 19:10 | Emergency (ER) | payer MEDICAID ==
[~2020-09-23 19:10] MED LIST changes: +CHLO200T2 PO; +QUET300T PO
--- NOTE | 2020-09-23 19:31 | NUR ---
PT BECAME ABUSIVE TO STAFF AND REFUSED TO WAIT TO GO TO ROOM. PT WALKED OUT OF ER
== END 2020-09-23 19:37 | disposition left against medical advice (07) ==
LOC: ED 19:30
DX: R45.851 Suicidal ideations (principal); Z53.21 Procedure and treatment not carried out due to patient leaving prior to being seen by health care provider

== ENCOUNTER 2020-10-02 15:56 | Emergency (ER) | payer MEDICAID ==
[~2020-10-02] VITALS: Ht 190.5 cm; Wt 136.5 kg
--- NOTE | 2020-10-02 15:56 | NUR ---
BIBA FROM BUS STOP C/O DELUSIONS/PARANOIA WITH VISUAL & AUDITORY HALLUC, "OFF MEDS FOR 3 DAYS, VOICES & FBI INERROGATING ME FOR THE LAST 36 HRS, THEY'RE OUT TO GET ME", VISUAL HALLUC OF "KNIVES GOING INTO PEOPLE", DENIES SI/HI ("I LOVE PEOPLE, I DON'T WANT TO HURT THEM", LAST ETOH LAST NIGHT (2 BEERS, 3 TEQUILA SHOTS, 2 PUFFS OF MARIJUANA & A SUBOXONE LAST NIGHT", 4MG ZOFRAN SUPERVISOR GRAIN AND YEAST PLANTS PER EMS FOR NAUSEA DURING AMBULANCE RIDE, RESOLVED ON ARRIVAL; PT CHANGED INTO GOWN, CALM & COOPERATIVE, ALL PERSONAL BELONGINGS X2 BAGS PLACED IN LOCKER, PT IN SAFE ENVIRONMENT, SITTER IN VIEW.
--- NOTE | 2020-10-02 16:25 | NUR ---
PSYCH MIXING PLANT DUMPER (MICHEAL) AT FOR CONSULT.
[2020-10-02 16:30] LABS: MICROSCOPIC NOT IND
[2020-10-02] MEDS ORDERED: OLANZAPINE 10 MG TABLET PO ONE (16:30)
--- NOTE | 2020-10-02 16:35 | NUR ---
PT ABSCESS TO ANTERIOR SCOTT RUPTURED (PT CURRENTLY TAKING ABX FOR IT), WOUND CARE PROVIDED.
[2020-10-02 16:52] LABS: BASOPHILS % (AUTO) 1 % (0-1); EOSINOPHILS % (AUTO) 1 % (1-7); LYMPHOCYTES % (AUTO) 20 % (22-44); MEAN CORPUSCULAR HEMOGLOBIN 31.4 pg (27.5-34.5); MEAN CORPUSCULAR HGB CONC 34.5 g/dL (33.2-36.2); MEAN PLATELET VOLUME 8.1 fL (7.4-10.4); MONOCYTES % (AUTO) 6 % (2-9); NEUTROPHILS % (AUTO) 72 % (42-75); PLATELET COUNT 329 x10^3/uL (130-400); RED BLOOD COUNT 4.81 x10^6/uL (4.38-5.82); RED CELL DISTRIBUTION WIDTH 13.9 % (9.4-14.8)
[2020-10-02 16:53] LABS: MD NO
--- NOTE | 2020-10-02 17:01 | NUR ---
PT LAYING ON GURNEY WITH EYES CLOSED, RESPONDS APPROP TO STAFF, NAD, NO NEEDS AT THIS TIME, PT REMAINS IN SAFE ENVIRONMENT, SITTER IN VIEW.
[2020-10-02 17:04] LABS: ALANINE AMINOTRANSFERASE 31 U/L (12-78); ALBUMIN 3.5 g/dL (3.4-5.0); ANION GAP 7 mmol/L (5-15); CALCIUM 8.4 mg/dL (8.5-10.1); CHLORIDE 112 mmol/L (98-107); SALICYLATE LEVEL 3.2 mg/dL (2.8-20.0)
[2020-10-02 17:07] LABS: ALKALINE PHOSPHATASE 101 U/L (45-117); BILIRUBIN,TOTAL 0.3 mg/dL (0.2-1.0); CREATININE 1.15 mg/dL (0.7-1.3); TOTAL PROTEIN 7.8 g/dL (6.4-8.2)
[2020-10-02] MEDS ORDERED: OLANZAPINE 10 MG TABLET ONE (17:08)
[2020-10-02 17:45] LABS: AMPHETAMINE SCREEN, URINE Negative (Negative); BARBITURATE SCREEN, URINE Negative (Negative); BENZODIAZEPINE SCREEN, URINE Negative (Negative); CANNABINOID SCREEN, URINE Positive (Negative); COCAINE SCREEN, URINE Negative (Negative); METHADONE SCREEN, URINE Negative (Negative); OPIATE SCREEN, URINE Negative (Negative)
--- NOTE | 2020-10-02 18:06 | NUR ---
RECVD REPORT FROM NACHO GUERRIER, ASSUMED CARE OF PATIENT. PROVIDED SAFETY FOOD TRAY. PATIENT RESTING COMFORTABLY WITH SITTER OUTSIDE DOOR WITHIN VIEW.
--- NOTE | 2020-10-02 18:19 | NUR ---
Patient/Caregiver given discharge instructions and they have confirmed that they understand the instructions. Patient ambulatory with steady gait. Patient teaching including follow up with Mental health provider for medications.
[2020-10-02 18:20] VITALS: BP 128/82
== END 2020-10-02 18:23 | disposition home or self-care (01) ==
LOC: ED 16:30
DX: F22 Delusional disorders (principal); M19.90 Unspecified osteoarthritis, unspecified site; F17.210 Nicotine dependence, cigarettes, uncomplicated; Z72.9 Problem related to lifestyle, unspecified
CPT/HCPCS: 36415; 80053; 80299; 80307; 80320; 80329; 81003; 85025; 99284; 99406; G0480

== ENCOUNTER 2020-10-11 04:51 | Emergency (ER) | payer MEDICAID ==
[~2020-10-11] VITALS: Ht 190.5 cm; Wt 143.4 kg
[2020-10-11] MEDS ORDERED: [UNRECOGNIZED DRUG - REMARK] (05:23)
[2020-10-11] MEDS ORDERED: klonopin (05:23)
[2020-10-11] MEDS ORDERED: zyprexa (05:23)
[2020-10-11] MEDS ORDERED: LORazepam 1MG TABLET ONE ×2 (05:27→22:04)
[2020-10-11] MEDS ORDERED: LORazepam 1MG TABLET PO ONE ×3 (05:30→21:30)
--- NOTE | 2020-10-11 05:31 | NUR ---
PT tony states he has had threats this last week now having si,hallucinations as well with delirum now given 1mg ativan resting in bed...
--- NOTE | 2020-10-11 05:59 | NUR ---
PT NOW STATES HE WANTS TO KILL HIMSELF AND OTHERS AND IS HEARING VOICES TELLING HIM WHAT TO DO,PT GIVEN URINAL FOR DRUG SCREEN...
--- NOTE | 2020-10-11 06:30 | NUR ---
DRUG SCREEN SENT
--- NOTE | 2020-10-11 06:51 | NUR ---
REPORT FROM ANI GUERRIER, PT RESTING IN [facility] WITH SITTER AT BEDSIDE, EQUAL CHEST RISE AND FALL
[2020-10-11 06:54] LABS: BASOPHILS % (AUTO) 1 % (0-1); EOSINOPHILS % (AUTO) 3 % (1-7); LYMPHOCYTES % (AUTO) 20 % (22-44); MD NO; MEAN CORPUSCULAR HEMOGLOBIN 31.1 pg (27.5-34.5); MEAN CORPUSCULAR HGB CONC 33.9 g/dL (33.2-36.2); MEAN PLATELET VOLUME 8.7 fL (7.4-10.4); MONOCYTES % (AUTO) 8 % (2-9); NEUTROPHILS % (AUTO) 68 % (42-75); PLATELET COUNT 268 x10^3/uL (130-400); RED BLOOD COUNT 4.69 x10^6/uL (4.38-5.82); RED CELL DISTRIBUTION WIDTH 13.9 % (9.4-14.8)
[2020-10-11 07:00] LABS: ALBUMIN 3.3 g/dL (3.4-5.0); ANION GAP 6 mmol/L (5-15); CALCIUM 8.7 mg/dL (8.5-10.1); CHLORIDE 109 mmol/L (98-107)
[2020-10-11 07:06] LABS: AMPHETAMINE SCREEN, URINE Positive (Negative); BARBITURATE SCREEN, URINE Negative (Negative); BENZODIAZEPINE SCREEN, URINE Negative (Negative); CANNABINOID SCREEN, URINE Negative (Negative); COCAINE SCREEN, URINE Negative (Negative); METHADONE SCREEN, URINE Negative (Negative); OPIATE SCREEN, URINE Negative (Negative)
[2020-10-11 07:07] LABS: ALANINE AMINOTRANSFERASE 28 U/L (12-78); ALKALINE PHOSPHATASE 90 U/L (45-117); BILIRUBIN,TOTAL 0.4 mg/dL (0.2-1.0); CREATININE 0.87 mg/dL (0.7-1.3); SALICYLATE LEVEL 4.1 mg/dL (2.8-20.0); TOTAL PROTEIN 7.1 g/dL (6.4-8.2)
--- NOTE | 2020-10-11 07:51 | NUR ---
Pt sleeping in [facility] with sitter at bedside
--- NOTE | 2020-10-11 08:52 | NUR ---
Pt given breakfast tray, calm and cooperative at this time
--- NOTE | 2020-10-11 09:52 | NUR ---
Pt resting in [facility] with sitter at doorway, psych CAFE OPERATOR to see
--- NOTE | 2020-10-11 10:52 | NUR ---
Pt resting in [facility] with sitter at doorway, pt to go to [facility]
--- NOTE | 2020-10-11 11:20 | NUR ---
Covid antibody swab walked to lab
[2020-10-11] MEDS: OLANZAPINE 10 MG TABLET PO SCH (15:30)
--- NOTE | 2020-10-11 19:29 | NUR ---
WANTS FOOD NOW THATS HES AWAKE
[2020-10-11] MEDS ORDERED: OLANZAPINE 10 MG TABLET ONE (20:26)
[2020-10-11] MEDS ORDERED: DIPHENHYDRAMINE 25 MG CAPSULE PO ONE (21:30)
[2020-10-11] MEDS ORDERED: DIPHENHYDRAMINE 25 MG CAPSULE ONE (22:05)
--- NOTE | 2020-10-11 23:31 | NUR ---
PT FED GIVEN MEDS NOW SLEEPING NO NEW COMPLAINTS....
--- NOTE | 2020-10-12 01:08 | NUR ---
BREAK RN: PT RESTING IN ROOM. NO ACUTE DISTRESS NOTED. SITTER AT DOOR. WILL CONTINUE TO MONITOR WHILE PRIMARY RN IS ON BRAEK.
--- NOTE | 2020-10-12 01:29 | NUR ---
BREAK RN: REPORT GIVEN TO CHEY ONEIL
--- NOTE | 2020-10-12 03:14 | NUR ---
PT SLEEPING NO NEW COMPLAINTS...
--- NOTE | 2020-10-12 06:10 | NUR ---
PT SLEEPING NO DISTRESS NO NEW COMPLAINTS.....
[2020-10-12 06:11] VITALS: BP 125/67
--- NOTE | 2020-10-12 06:42 | NUR ---
REPORT GIVEN MARCO ANTONIO GUERRIER
--- NOTE | 2020-10-12 07:08 | NUR ---
REPORT FROM THAD. PT SLEEPING.
[2020-10-12] MEDS ORDERED: OLANZAPINE 10 MG TABLET ONE (08:08)
[2020-10-12] MEDS: OLANZAPINE 10 MG TABLET PO SCH (08:20)
--- NOTE | 2020-10-12 08:20 | NUR ---
GIVEN MEAL TRAY, MEDICATED PER ORDERS. SITTER PRESENT
--- NOTE | 2020-10-12 10:23 | NUR ---
Beni bautista in [facility] - 10/12/20 at 1024 by ABDI PT PROVIDED MEAL RALPH VALLADARES
--- NOTE | 2020-10-12 10:24 | NUR ---
BELONGINGS BACK TO PATIENT. PT TO BE DC SOON
--- NOTE | 2020-10-12 11:27 | NUR ---
PT RESTING, MEAL TRAY ORDERED. TO BE DC WHEN [facility] AVAILABLE TO [facility]
[2020-10-12] MEDS ORDERED: ACETAMINOPHEN 500 MG TABLET ONE (11:48)
--- NOTE | 2020-10-12 12:02 | NUR ---
GIVEN MEAL TRAY AND TYLENOL
--- NOTE | 2020-10-12 12:30 | NUR ---
KARYN KHAN AND ALL BELONGINGS.
--- NOTE | 2020-10-12 12:44 | NUR ---
Patient/Caregiver given discharge instructions and they have confirmed that they understand the instructions. Patient ambulatory with steady gait.
[2020-10-12] MEDS ORDERED: ACETAMINOPHEN 500 MG TABLET PO ONE (13:00)
== END 2020-10-12 12:46 | disposition home or self-care (01) ==
LOC: ED 05:39
DX: U07.1 COVID-19 (principal); F33.9 Major depressive disorder, recurrent, unspecified; Z72.9 Problem related to lifestyle, unspecified; R45.851 Suicidal ideations; F15.10 Other stimulant abuse, uncomplicated; Z91.14 Patient's other noncompliance with medication regimen
CPT/HCPCS: 36415; 80053; 80299; 80307; 80320; 80329; 85025; 87426; 99285; U0003; G0480

== ENCOUNTER 2020-11-20 06:19 | Emergency (ER) | payer MEDICAID ==
[~2020-11-20] VITALS: Ht 188 cm; Wt 140.0 kg
[~2020-11-20 06:19] MED LIST changes: +[UNRECOGNIZED DRUG - REMARK]; +klonopin; +zyprexa
[2020-11-20 06:21] VITALS: BP 138/88
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
--- NOTE | 2020-11-20 06:51 | NUR ---
REPORT FROM LAMONT
[2020-11-20] MEDS ORDERED: LORazepam 1MG TABLET PO ONE (07:00)
--- NOTE | 2020-11-20 07:02 | NUR ---
BEDSIDE REPORT TO MARCO ANTONIO GUERRIER
[2020-11-20] MEDS ORDERED: LORazepam 1MG TABLET ONE (07:11)
--- NOTE | 2020-11-20 07:27 | NUR ---
MEDICATED W ATIVAN. WAITING FOR BREADFAST TRAY.
== END 2020-11-20 08:58 | disposition home or self-care (01) ==
LOC: ED 06:45
DX: F25.9 Schizoaffective disorder, unspecified (principal); Z76.0 Encounter for issue of repeat prescription; F17.290 Nicotine dependence, other tobacco product, uncomplicated
CPT/HCPCS: 99283

== ENCOUNTER 2020-12-03 16:19 | Emergency (ER) | payer MEDICAID ==
[~2020-12-03] VITALS: Ht 190.5 cm; Wt 143.2 kg
--- NOTE | 2020-12-03 16:25 | NUR ---
NUT PICKER: SITTER REQUESTED FROM HOUSE SUP/NURSING OPS PER PRIMARY RN REQUEST FOR PT. PRIMARY RN MAIRA CURRENTLY WATCHING PT. PT IN MONITOREM ROOM, ROOM SECURED WITH GARAGE DOORS DOWN, SAFE ENVIRONMENT PROVIDED.
[2020-12-03 16:27] VITALS: BP 150/98
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
--- NOTE | 2020-12-03 16:45 | NUR ---
HOSPITAL COOK: MANUFACTURING ENGINEER TO BEDSIDE/DOOR TO SIT/CONTINUOUSLY MONITOR PT FOR SAFETY. PER TIFFANIE GRAHAM/NURSING OPS, NO CHIEF RADIOLOGIC TECHNOLOGIST CURRENTLY AVAILABLE, TO USE MANUFACTURING ENGINEER. PRIMARY RN MAIRA AWARE.
[2020-12-03 16:47] LABS: BASOPHILS % (AUTO) 1 % (0-1); EOSINOPHILS % (AUTO) 4 % (1-7); LYMPHOCYTES % (AUTO) 21 % (22-44); MEAN CORPUSCULAR HEMOGLOBIN 31.1 pg (27.5-34.5); MEAN CORPUSCULAR HGB CONC 34.4 g/dL (33.2-36.2); MEAN PLATELET VOLUME 8.4 fL (7.4-10.4); MONOCYTES % (AUTO) 8 % (2-9); NEUTROPHILS % (AUTO) 66 % (42-75); PLATELET COUNT 290 x10^3/uL (130-400); RED BLOOD COUNT 4.69 x10^6/uL (4.38-5.82); RED CELL DISTRIBUTION WIDTH 14.1 % (9.4-14.8)
[2020-12-03 16:52] LABS: MD NO
[2020-12-03 16:59] LABS: ALANINE AMINOTRANSFERASE 32 U/L (12-78); ALBUMIN 3.4 g/dL (3.4-5.0); ANION GAP 5 mmol/L (5-15); CALCIUM 8.5 mg/dL (8.5-10.1); CHLORIDE 108 mmol/L (98-107)
[2020-12-03 17:01] LABS: ALKALINE PHOSPHATASE 102 U/L (45-117); BILIRUBIN,TOTAL 0.3 mg/dL (0.2-1.0); SALICYLATE LEVEL 3.7 mg/dL (2.8-20.0); TOTAL PROTEIN 7.4 g/dL (6.4-8.2)
--- NOTE | 2020-12-03 17:02 | NUR ---
E COMMERCE SOLUTION ARCHITECT: ACADEMIC SUPPORT COORDINATOR ARRIVED, AT BEDSIDE/DOOR FOR CONT SAFETY OBS.
[2020-12-03 17:07] LABS: AMPHETAMINE SCREEN, URINE Negative (Negative); BARBITURATE SCREEN, URINE Negative (Negative); BENZODIAZEPINE SCREEN, URINE Negative (Negative); CANNABINOID SCREEN, URINE Negative (Negative); COCAINE SCREEN, URINE Negative (Negative); METHADONE SCREEN, URINE Negative (Negative); OPIATE SCREEN, URINE Negative (Negative)
--- NOTE | 2020-12-03 17:15 | NUR ---
SITTER NOW AT BEDSIDE. PT RESTING ON HAN. MARTINEZ. ROOM REMAINS SECURE. PT PROVIDED W/ SI DINNER TRAY.
--- NOTE | 2020-12-03 18:12 | NUR ---
PT RESTING ON HAN. MARTINEZ. SITTER REMAINS AT BEDSIDE. ROOM REMAINS SECURE.
--- NOTE | 2020-12-03 18:47 | NUR ---
REPORT RECEIVED FROM MAIRA GUERRIER
--- NOTE | 2020-12-03 18:48 | NUR ---
REPORT GI DILEEP TO HANNA AND CHEY MIGUEL'S.
--- NOTE | 2020-12-03 18:55 | NUR ---
MOVED TO RM 1. REPORT TO LAMONT GUERRIER
--- NOTE | 2020-12-03 19:00 | NUR ---
PT RESTING ON GURNEY, CONTINUES TO TALK AND YELL TO SELF IN ROOM, ABLE TO ORIENT APPROPRIATELY. MARTINEZ. LUBATER REMAINS AT BEDSIDE. ROOM REMAINS SECURE.
--- NOTE | 2020-12-03 20:00 | NUR ---
PT PROVIDED SANDWHICH AND JUICE PER REQUEST. PT DENIES ANY ADDITIONAL NEEDS AT THIS TIME. SAFETY PRECAUTIONS IN PLACE, SITTER IN VIEW.
--- NOTE | 2020-12-03 20:29 | NUR ---
Pt to be admitted to [facility], room 388-1. Report called to JOSE.
--- NOTE | 2020-12-03 20:47 | NUR ---
PT TRANSFERED TO U VIA WHEELCHAIR WITH ALL BELONGINGS. X2 BAGS.
== END 2020-12-03 20:49 ==
LOC: ED 17:28
DX: F33.9 Major depressive disorder, recurrent, unspecified (principal); Z20.822 Contact with and (suspected) exposure to COVID-19; R45.851 Suicidal ideations; R44.1 Visual hallucinations; R00.2 Palpitations
CPT/HCPCS: 36415; 80053; 80299; 80307; 80320; 80329; 85025; 87426; 99285; G0480

== ENCOUNTER 2020-12-03 19:09 | Inpatient (IN) | payer MEDICAID ==
[~2020-12-03] VITALS: Ht 190.5 cm; Wt 135.1 kg
[2020-12-03] MEDS ORDERED: POLYETHYLENE GLYCOL 17 GM PACKET PO PRN (19:30)
[2020-12-03] MEDS ORDERED: QUETIAPINE 100MG TABLET PO PRN (19:30)
[2020-12-03] MEDS ORDERED: DOCUSATE 100 MG CAPSULE PO PRN (19:30)
[2020-12-03] MEDS ORDERED: ONDANSETRON ODT 4 MG PO PRN (19:30)
[2020-12-03] MEDS ORDERED: BISACODYL 10 MG SUPP PR PRN (19:30)
[2020-12-03] MEDS ORDERED: ACETAMINOPHEN 325 MG TABLET PO PRN (19:30)
[2020-12-03 19:40] LABS: MICROSCOPIC NOT IND
[2020-12-03] MEDS ORDERED: PLEASE ENTER HEIGHT AND WEIGHT MC SCH (21:00)
[2020-12-03] MEDS ORDERED: TRAZODONE 100MG TABLET ONE (21:34)
[2020-12-03] MEDS ORDERED: ARIPIPRAZOLE 10 MG TABLET ONE (21:34)
[2020-12-03] MEDS ORDERED: CHLORPROMAZINE 100MG TAB ONE (21:36)
[2020-12-03] MEDS: TRAZODONE 100MG TABLET PO SCH (21:50)
[2020-12-03] MEDS: ARIPIPRAZOLE 10 MG TABLET PO SCH (21:50)
[2020-12-03 23:35] VITALS: BP 152/85
[2020-12-04 07:28] LABS: FREE T4 (FREE THYROXINE) 0.86 ng/dL (0.76-1.46); LDL/HDL RATIO 3.2 (0.5-3.0)
[2020-12-04 07:30] VITALS: BP 124/82
[2020-12-04 19:29] VITALS: BP 126/75
[2020-12-04] MEDS: ARIPIPRAZOLE 10 MG TABLET PO SCH (20:39)
[2020-12-04] MEDS: TRAZODONE 100MG TABLET PO SCH (20:39)
[2020-12-05 07:40] VITALS: BP 127/82
[2020-12-05] MEDS: NICOTINE 14MG/24 HR PATCH.TD24 TD SCH (09:00)
[2020-12-05] MEDS ORDERED: CHLORPROMAZINE 100MG TAB ONE ×3 (09:19→20:25)
[2020-12-05 19:39] VITALS: BP 121/76
[2020-12-05] MEDS: TRAZODONE 100MG TABLET PO SCH (20:27)
[2020-12-05] MEDS: ARIPIPRAZOLE 10 MG TABLET PO SCH (20:27)
[2020-12-06 08:00] VITALS: BP 120/75
[2020-12-06] MEDS: CHLORPROMAZINE 100MG TAB PO SCH ×2 (09:00→20:16)
[2020-12-06] MEDS: NICOTINE 14MG/24 HR PATCH.TD24 TD SCH (09:00)
[2020-12-06] MEDS: LORazepam 1MG TABLET PO PRN ×2 (14:39→18:50)
[2020-12-06 19:20] VITALS: BP 125/84
[2020-12-06] MEDS: ARIPIPRAZOLE 10 MG TABLET PO SCH (20:16)
[2020-12-06] MEDS: TRAZODONE 100MG TABLET PO SCH (20:16)
[2020-12-07] MEDS: LORazepam 1MG TABLET PO PRN ×2 (01:42→09:16)
[2020-12-07 07:21] VITALS: BP 129/85
[2020-12-07] MEDS: CHLORPROMAZINE 100MG TAB PO SCH ×2 (09:00→21:02)
[2020-12-07] MEDS: NICOTINE 14MG/24 HR PATCH.TD24 TD SCH (09:00)
[2020-12-07] MEDS ORDERED: ARIP10TA33 PO (16:58)
[2020-12-07] MEDS ORDERED: CHLO100T6 PO (16:58)
[2020-12-07] MEDS ORDERED: TRAZ-175 PO (16:58)
[2020-12-07] MEDS ORDERED: NICO-486 TD (16:58)
[2020-12-07] MEDS: ARIPIPRAZOLE 10 MG TABLET PO SCH (21:01)
[2020-12-07] MEDS: TRAZODONE 100MG TABLET PO SCH (21:01)
[2020-12-08 07:28] VITALS: BP 115/74
[2020-12-08] MEDS: CHLORPROMAZINE 100MG TAB PO SCH (08:33)
[2020-12-08] MEDS: LORazepam 1MG TABLET PO PRN (08:34)
[2020-12-08] MEDS: NICOTINE 14MG/24 HR PATCH.TD24 TD SCH (08:34)
== END 2020-12-08 14:30 | disposition home or self-care (01) | DRG 750 ==
LOC: 3E 20:44
PROVIDERS: ADMIT Psychiatry & Neurology Psychosomatic Medicine; ATTEND Psychiatry & Neurology Psychosomatic Medicine
DX: F25.0 Schizoaffective disorder, bipolar type (principal); F41.9 Anxiety disorder, unspecified; F17.210 Nicotine dependence, cigarettes, uncomplicated; F15.21 Other stimulant dependence, in remission; E66.9 Obesity, unspecified; G47.00 Insomnia, unspecified; R45.850 Homicidal ideations; Z86.16 Personal history of COVID-19; R45.851 Suicidal ideations; Z59.0 Homelessness; Z79.899 Other long term (current) drug therapy; Z87.01 Personal history of pneumonia (recurrent); Z91.5 Personal history of self-harm; Z88.8 Allergy status to other drugs, medicaments and biological substances; Z68.37 Body mass index [BMI] 37.0-37.9, adult
CPT/HCPCS: 36415; 71045; 80053; 80061; 80299; 80307; 80320; 80329; 81003; 82607; 84439; 84443; 85025; 87426; 93005; 99285; G0480

== ENCOUNTER 2020-12-16 14:28 | Inpatient (IN) | payer MEDICAID ==
[~2020-12-16] VITALS: Ht 190.5 cm; Wt 136.7 kg
[~2020-12-16 14:28] MED LIST changes: +CHLO100T6 PO
[2020-12-16] MEDS ORDERED: ACETAMINOPHEN 325 MG TABLET PO PRN (15:30)
[2020-12-16] MEDS ORDERED: BISACODYL 10 MG SUPP PR PRN (15:30)
[2020-12-16] MEDS ORDERED: DOCUSATE 100 MG CAPSULE PO PRN (15:30)
[2020-12-16] MEDS ORDERED: POLYETHYLENE GLYCOL 17 GM PACKET PO PRN (15:30)
[2020-12-16] MEDS ORDERED: ONDANSETRON ODT 4 MG PO PRN (15:30)
[2020-12-16 17:13] VITALS: BP 150/78
[2020-12-16] MEDS ORDERED: PLEASE ENTER HEIGHT AND WEIGHT MC SCH (17:30)
[2020-12-16 19:57] VITALS: BP 148/81
[2020-12-16] MEDS: TRAZODONE 100MG TABLET PO SCH (20:16)
[2020-12-16] MEDS: CHLORPROMAZINE 100MG TAB PO SCH (20:17)
[2020-12-16] MEDS: ARIPIPRAZOLE 10 MG TABLET PO SCH (20:17)
[2020-12-17 07:30] VITALS: BP 112/76
[2020-12-17] MEDS: CHLORPROMAZINE 100MG TAB PO SCH ×2 (08:35→20:39)
[2020-12-17] MEDS: NICOTINE 14MG/24 HR PATCH.TD24 TD SCH (08:41)
[2020-12-17] MEDS: IBUPROFEN 600 MG TABLET PO PRN (08:53)
[2020-12-17] MEDS: LORazepam 1MG TABLET PO PRN ×2 (08:53→17:48)
[2020-12-17 19:55] VITALS: BP 116/70
[2020-12-17] MEDS: TRAZODONE 100MG TABLET PO SCH (20:39)
[2020-12-17] MEDS: ARIPIPRAZOLE 10 MG TABLET PO SCH (20:39)
[2020-12-18 07:52] VITALS: BP 130/82
[2020-12-18] MEDS: IBUPROFEN 600 MG TABLET PO PRN ×2 (08:24→19:50)
[2020-12-18] MEDS: LORazepam 1MG TABLET PO PRN ×2 (08:24→16:19)
[2020-12-18] MEDS: CHLORPROMAZINE 100MG TAB PO SCH ×2 (08:24→19:50)
[2020-12-18] MEDS: NICOTINE 14MG/24 HR PATCH.TD24 TD SCH (08:27)
[2020-12-18 19:25] VITALS: BP 112/70
[2020-12-18] MEDS: ARIPIPRAZOLE 10 MG TABLET PO SCH (19:50)
[2020-12-18] MEDS: TRAZODONE 100MG TABLET PO SCH (19:50)
[2020-12-19 07:46] VITALS: BP 117/60
[2020-12-19] MEDS: NICOTINE 14MG/24 HR PATCH.TD24 TD SCH (08:27)
[2020-12-19] MEDS: CHLORPROMAZINE 100MG TAB PO SCH ×2 (08:29→19:56)
[2020-12-19] MEDS: LORazepam 1MG TABLET PO PRN ×2 (08:30→19:56)
[2020-12-19] MEDS: IBUPROFEN 600 MG TABLET PO PRN ×2 (08:30→19:56)
[2020-12-19] MEDS ORDERED: HYDROXYZINE PAMOATE 50MG CAP PO PRN ×3 (11:00)
[2020-12-19] MEDS: TRAZODONE 100MG TABLET PO SCH (19:56)
[2020-12-19] MEDS: ARIPIPRAZOLE 10 MG TABLET PO SCH (19:56)
[2020-12-19 20:07] VITALS: BP 136/88
[2020-12-20 08:02] VITALS: BP 112/72
[2020-12-20] MEDS: NICOTINE 14MG/24 HR PATCH.TD24 TD SCH (08:36)
[2020-12-20] MEDS: CHLORPROMAZINE 100MG TAB PO SCH ×2 (08:36→20:02)
[2020-12-20] MEDS: IBUPROFEN 600 MG TABLET PO PRN ×2 (09:34→20:02)
[2020-12-20] MEDS: LORazepam 1MG TABLET PO PRN ×2 (09:34→16:58)
[2020-12-20] MEDS ORDERED: NICO-486 TD (13:31)
[2020-12-20] MEDS ORDERED: HYDR50CA2 PO (13:31)
[2020-12-20] MEDS ORDERED: ARIP10TA33 PO (13:31)
[2020-12-20] MEDS ORDERED: TRAZ-175 PO (13:31)
[2020-12-20 19:38] VITALS: BP 123/84
[2020-12-20] MEDS: ARIPIPRAZOLE 10 MG TABLET PO SCH (20:01)
[2020-12-20] MEDS: TRAZODONE 100MG TABLET PO SCH (20:02)
[2020-12-21 08:02] VITALS: BP 117/71
[2020-12-21] MEDS: NICOTINE 14MG/24 HR PATCH.TD24 TD SCH (09:00)
[2020-12-21] MEDS: CHLORPROMAZINE 100MG TAB PO SCH (09:09)
== END 2020-12-21 09:24 | disposition home or self-care (01) | DRG 750 ==
LOC: 3E 16:07
PROVIDERS: ADMIT Psychiatry & Neurology Psychosomatic Medicine; ATTEND Psychiatry & Neurology Psychosomatic Medicine
DX: F25.0 Schizoaffective disorder, bipolar type (principal); E66.9 Obesity, unspecified; Z68.37 Body mass index [BMI] 37.0-37.9, adult; Z88.8 Allergy status to other drugs, medicaments and biological substances; J45.909 Unspecified asthma, uncomplicated; Z81.8 Family history of other mental and behavioral disorders; Z80.9 Family history of malignant neoplasm, unspecified; F17.210 Nicotine dependence, cigarettes, uncomplicated
CPT/HCPCS: 93005

== ENCOUNTER 2020-12-26 17:52 | Inpatient (IN) | payer MEDICAID ==
[~2020-12-26] VITALS: Ht 188 cm; Wt 140.0 kg
--- NOTE | 2020-12-26 18:09 | NUR ---
PT TO SECURE RM, ALL BELONGINGS REMOVED AND PLACED IN APPROPRIATE BIN IN LOCKER. CONSULTING PSYCHOLOGIST MADE AWARE OF NEED FOR SITTER. PT AMBULATES TO BR WITH STEADY GAIT, UDS COLLECTED AND SENT TO LAB
--- NOTE | 2020-12-26 18:09 | NUR ---
TRINI KHAN, PT PICKED UP ON [address] BY [place], PT MAKING SUICIDAL STATEMENTS, "IM ALWAYS SUICIDAL" "I WOULD JUMP OFF A BRIDGE" PER EMS PT VOLUNTARY TO COME TO ER, ANIAD PLACED PT ON LH. PT WITH RECENT ADMIT TO [facility] WAS ON HOLD AT THAT TIME, PT HAS BEEN OUT OF MEDICATIONS FOR A WEEK, STATES HE FEELS INCREASEINGLY ANXIOUS AND HAVING INCREASE IN AUDITIORY HALLUCINATIONS. PT PLACED ON MONITOR D/T HR 160 ON ARRIVAL, PT RECIEVED HALDOL AND 200CC NS BY EMS. PT WITH PIV IN PLACE. EKG DONE, AWAITING TRACY NIELSON.
[2020-12-26] MEDS ORDERED: LORazepam 2 MG/ML, 1ML ONE ×2 (18:13→19:34)
[2020-12-26] MEDS ORDERED: SODIUM CHLORIDE FLUSH 10ML SYR IVF ONE (18:30)
[2020-12-26] MEDS ORDERED: SODIUM CHLORIDE 0.9% 1,000ML IVBOLUS ONE (18:30)
[2020-12-26] MEDS ORDERED: LORazepam 2 MG/ML, 1ML IVPush ONE ×2 (18:30→19:30)
[2020-12-26] MEDS ORDERED: PLEASE ENTER HEIGHT AND WEIGHT MC SCH (18:30)
[2020-12-26 18:44] LABS: AMPHETAMINE SCREEN, URINE Negative (Negative); BARBITURATE SCREEN, URINE Negative (Negative); BENZODIAZEPINE SCREEN, URINE Negative (Negative); CANNABINOID SCREEN, URINE Negative (Negative); COCAINE SCREEN, URINE Negative (Negative); METHADONE SCREEN, URINE Negative (Negative); OPIATE SCREEN, URINE Negative (Negative)
[2020-12-26 18:54] LABS: BASOPHILS % (AUTO) 1 % (0-1); EOSINOPHILS % (AUTO) 3 % (1-7); LYMPHOCYTES % (AUTO) 27 % (22-44); MEAN CORPUSCULAR HEMOGLOBIN 31.2 pg (27.5-34.5); MEAN CORPUSCULAR HGB CONC 34.4 g/dL (33.2-36.2); MEAN PLATELET VOLUME 8.6 fL (7.4-10.4); MONOCYTES % (AUTO) 7 % (2-9); NEUTROPHILS % (AUTO) 61 % (42-75); PLATELET COUNT 256 x10^3/uL (130-400); RED BLOOD COUNT 4.76 x10^6/uL (4.38-5.82); RED CELL DISTRIBUTION WIDTH 14.5 % (9.4-14.8)
[2020-12-26 18:55] LABS: MD NO
[2020-12-26] MEDS ORDERED: DILTIAZEM 5 MG/ML, 5ML ONE ×2 (18:57→20:31)
[2020-12-26] MEDS ORDERED: DILTIAZEM 5 MG/ML, 5ML IVPush ONE ×2 (19:00→20:30)
[2020-12-26 19:07] LABS: ALANINE AMINOTRANSFERASE 33 U/L (12-78); ALBUMIN 3.1 g/dL (3.4-5.0); ANION GAP 8 mmol/L (5-15); CALCIUM 7.7 mg/dL (8.5-10.1); CHLORIDE 111 mmol/L (98-107); CREATININE 1.01 mg/dL (0.7-1.3); SALICYLATE LEVEL 2.5 mg/dL (2.8-20.0)
[2020-12-26 19:17] LABS: ALKALINE PHOSPHATASE 84 U/L (45-117); TOTAL PROTEIN 6.4 g/dL (6.4-8.2); TROPONIN I < 0.015 ng/mL (0.000-0.045)
[2020-12-26 19:21] LABS: BILIRUBIN,TOTAL < 0.1 mg/dL (0.2-1.0)
[2020-12-26] MEDS: DILTIAZEM 125 MG in SODIUM CHLORIDE 0.9% 100 ML IV SCH (20:39)
[2020-12-26 21:18] VITALS: BP 116/81
[2020-12-27 00:59] VITALS: BP 103/72
[2020-12-27 05:10] LABS: ANION GAP 5 mmol/L (5-15); CALCIUM 8.4 mg/dL (8.5-10.1); CHLORIDE 112 mmol/L (98-107); CREATININE 1.03 mg/dL (0.7-1.3)
[2020-12-27 09:03] VITALS: BP 126/64
[2020-12-27] MEDS: DILTIAZEM 60 MG TABLET PO SCH ×2 (09:07→15:04)
[2020-12-27] MEDS: DILTIAZEM 125 MG in SODIUM CHLORIDE 0.9% 100 ML IV SCH (09:08)
[2020-12-27] MEDS ORDERED: LORazepam 1MG TABLET PO PRN (11:00)
[2020-12-27] MEDS ORDERED: TRAZODONE 100MG TABLET PO PRN (12:30)
[2020-12-27 12:43] VITALS: BP 140/92
[2020-12-27] MEDS ORDERED: DILT-86 PO (16:15)
== END 2020-12-27 16:57 | disposition home or self-care (01) | DRG 201 ==
LOC: ED 18:14 → EDIP 19:39 → 5SO 21:28 → DCLOUNGE 12-27 16:49
PROVIDERS: ADMIT Family Medicine; ATTEND Family Medicine
DX: I48.19 Other persistent atrial fibrillation (principal); D68.69 Other thrombophilia; F10.10 Alcohol abuse, uncomplicated; F17.210 Nicotine dependence, cigarettes, uncomplicated; F25.9 Schizoaffective disorder, unspecified; F32.9 Major depressive disorder, single episode, unspecified; R45.851 Suicidal ideations; Z59.0 Homelessness; Z79.899 Other long term (current) drug therapy; Z91.14 Patient's other noncompliance with medication regimen; Z81.8 Family history of other mental and behavioral disorders; Z82.5 Family history of asthma and other chronic lower respiratory diseases; Z88.8 Allergy status to other drugs, medicaments and biological substances
CPT/HCPCS: 36415; 71045; 80048; 80053; 80299; 80307; 80320; 80329; 83735; 84443; 84484; 85025; 93005; 96361; 96374; G0378; G0480; J2060; J7030

== ENCOUNTER 2021-01-11 20:01 | Emergency (ER) | payer MEDICAID ==
[~2021-01-11] VITALS: Ht 190.5 cm; Wt 137.0 kg
[~2021-01-11 20:01] MED LIST changes: +DILT-86 PO
--- NOTE | 2021-01-11 20:21 | NUR ---
KSENIA FROM [facility] FOR REPORTS OF SI, PT STATES HE PLANS ON SOMEONE BLOWING HIS BRAINS OUT. PERSONAL BELONGINGS COLLECTED AND STORED IN LOCKER, GARAGE DOORS PULLED DOWN FOR SAFETY. SITTER OUTSIDE ROOM FOR SAFETY MONITORIN.
[2021-01-11 20:33] LABS: BASOPHILS % (AUTO) 1 % (0-1); EOSINOPHILS % (AUTO) 5 % (1-7); LYMPHOCYTES % (AUTO) 23 % (22-44); MEAN CORPUSCULAR HEMOGLOBIN 30.7 pg (27.5-34.5); MEAN CORPUSCULAR HGB CONC 34.2 g/dL (33.2-36.2); MEAN PLATELET VOLUME 8.4 fL (7.4-10.4); MONOCYTES % (AUTO) 9 % (2-9); NEUTROPHILS % (AUTO) 62 % (42-75); PLATELET COUNT 286 x10^3/uL (130-400); RED BLOOD COUNT 4.51 x10^6/uL (4.38-5.82); RED CELL DISTRIBUTION WIDTH 14.6 % (9.4-14.8)
[2021-01-11 20:38] LABS: MD NO
[2021-01-11 20:39] LABS: ALBUMIN 3.2 g/dL (3.4-5.0); ANION GAP 4 mmol/L (5-15); CALCIUM 8.4 mg/dL (8.5-10.1); CHLORIDE 109 mmol/L (98-107); CREATININE 1.07 mg/dL (0.7-1.3); SALICYLATE LEVEL 3.2 mg/dL (2.8-20.0)
[2021-01-11] MEDS ORDERED: TRAZ-96 PO (21:05)
[2021-01-11] MEDS ORDERED: QUET100T PO (21:05)
[2021-01-11 21:15] LABS: AMPHETAMINE SCREEN, URINE Negative (Negative); BARBITURATE SCREEN, URINE Negative (Negative); BENZODIAZEPINE SCREEN, URINE Negative (Negative); CANNABINOID SCREEN, URINE Negative (Negative); COCAINE SCREEN, URINE Negative (Negative); METHADONE SCREEN, URINE Negative (Negative); OPIATE SCREEN, URINE Negative (Negative)
--- NOTE | 2021-01-11 21:20 | NUR ---
PT SLEEPING IN NAD, EQUAL CHEST RISE AND FALL NOTED. SAFETY PRECAUTIONS IN PLACE, SITTER OUTSIDE OF ROOM FOR SAFETY MONITORING.
--- NOTE | 2021-01-11 22:39 | NUR ---
PROVIDED MEAL TO PT, ALL NEEDS MET AT THIS TIME. SAFETY PRECAUTIONS IN PLACE. SITTER MONITORING FOR SAFETY OUTSIDE OF ROOM.
--- NOTE | 2021-01-11 22:58 | NUR ---
REPORT GIVEN TO GURMEET GUERRIER.
--- NOTE | 2021-01-11 23:13 | NUR ---
THROUGHPUT RN: PT PACKET FAXED TO [facility], [facility], [facility], [facility], AND [facility]
--- NOTE | 2021-01-11 23:29 | NUR ---
[facility] ACCEPTED PT
[2021-01-11 23:31] VITALS: BP 118/69
[2021-01-12] MEDS ORDERED: ARIP20TA5 PO (10:42)
[2021-01-12] MEDS ORDERED: CHLO200T2 PO (10:42)
== END 2021-01-12 04:34 | disposition other institution (70) ==
LOC: ED 20:13
DX: F33.3 Major depressive disorder, recurrent, severe with psychotic symptoms (principal); Z20.822 Contact with and (suspected) exposure to COVID-19; R45.851 Suicidal ideations; G43.909 Migraine, unspecified, not intractable, without status migrainosus
CPT/HCPCS: 36415; 80048; 80299; 80307; 80320; 80329; 82040; 85025; 87426; 99285; G0480

== ENCOUNTER 2021-01-11 23:36 | Inpatient (IN) | payer MEDICAID ==
[~2021-01-11] VITALS: Ht 190.5 cm; Wt 137.7 kg
[~2021-01-11 23:36] MED LIST changes: +OLAN10TA69 PO; -OLAN10TA9 PO; -QUET100T PO; +QUET100T2 PO; -QUET300T PO; +QUET300T2 PO; +TRAZ-96 PO
[2021-01-12] MEDS ORDERED: ONDANSETRON ODT 4 MG PO PRN
[2021-01-12] MEDS ORDERED: BISACODYL 10 MG SUPP PR PRN
[2021-01-12] MEDS ORDERED: POLYETHYLENE GLYCOL 17 GM PACKET PO PRN
[2021-01-12] MEDS ORDERED: DOCUSATE 100 MG CAPSULE PO PRN
[2021-01-12] MEDS ORDERED: ACETAMINOPHEN 325 MG TABLET PO PRN
[2021-01-12 01:41] VITALS: BP 139/87
[2021-01-12] MEDS: TRAZODONE 100MG TABLET PO SCH ×2 (02:01→20:16)
[2021-01-12] MEDS: IBUPROFEN 600 MG TABLET PO PRN ×3 (02:01→20:16)
[2021-01-12 02:31] LABS: MICROSCOPIC NOT IND
[2021-01-12 06:38] LABS: BASOPHILS % (AUTO) 1 % (0-1); EOSINOPHILS % (AUTO) 10 % (1-7); LYMPHOCYTES % (AUTO) 24 % (22-44); MEAN CORPUSCULAR HEMOGLOBIN 30.9 pg (27.5-34.5); MEAN CORPUSCULAR HGB CONC 34.5 g/dL (33.2-36.2); MEAN PLATELET VOLUME 8.3 fL (7.4-10.4); MONOCYTES % (AUTO) 9 % (2-9); NEUTROPHILS % (AUTO) 56 % (42-75); PLATELET COUNT 272 x10^3/uL (130-400); RED BLOOD COUNT 4.71 x10^6/uL (4.38-5.82); RED CELL DISTRIBUTION WIDTH 14.5 % (9.4-14.8)
[2021-01-12 06:48] LABS: ALANINE AMINOTRANSFERASE 29 U/L (12-78); ALBUMIN 3.1 g/dL (3.4-5.0); ANION GAP 4 mmol/L (5-15); CALCIUM 8.5 mg/dL (8.5-10.1); CHLORIDE 110 mmol/L (98-107); CREATININE 1.16 mg/dL (0.7-1.3)
[2021-01-12 07:14] LABS: ALKALINE PHOSPHATASE 82 U/L (45-117); BILIRUBIN,TOTAL 0.2 mg/dL (0.2-1.0); FREE T4 (FREE THYROXINE) 0.96 ng/dL (0.76-1.46); TOTAL PROTEIN 6.5 g/dL (6.4-8.2)
[2021-01-12] MEDS: CHLORPROMAZINE 100MG TAB PO SCH ×2 (07:45→20:16)
[2021-01-12 07:50] VITALS: BP 115/73
[2021-01-12] MEDS ORDERED: CHLO200T2 PO (10:42)
[2021-01-12] MEDS ORDERED: ARIP20TA5 PO (10:42)
[2021-01-12] MEDS ORDERED: CYANOCOBALAMIN 1,000 MCG/ML, 1ML IM ONE (11:00)
[2021-01-12] MEDS: ALBUTEROL-IPRATROPIUM MDI INH INH SCH ×2 (14:00→20:00)
[2021-01-12 20:04] VITALS: BP 130/77
[2021-01-12] MEDS: ARIPIPRAZOLE 10 MG TABLET PO SCH (20:16)
[2021-01-12] MEDS: LORazepam 1MG TABLET PO PRN (20:16)
[2021-01-12] MEDS: GUAIFENESIN ER 600 MG TABLET PO SCH (20:16)
[2021-01-13] MEDS: ALBUTEROL-IPRATROPIUM MDI INH INH SCH ×4 (00:39→19:59)
[2021-01-13 07:11] VITALS: BP 119/80
[2021-01-13] MEDS: CYANOCOBALAMIN 1,000 MCG TABLET PO SCH (07:35)
[2021-01-13] MEDS: IBUPROFEN 600 MG TABLET PO PRN ×2 (07:35→20:19)
[2021-01-13] MEDS: GUAIFENESIN ER 600 MG TABLET PO SCH ×2 (07:35→20:19)
[2021-01-13] MEDS: CHLORPROMAZINE 100MG TAB PO SCH ×2 (07:36→20:19)
[2021-01-13] MEDS: FLUTICASONE/VILANTEROL 200-25MCG/INH INH SCH (08:38)
[2021-01-13] MEDS: LORazepam 1MG TABLET PO PRN (12:02)
[2021-01-13 19:41] VITALS: BP 122/84
[2021-01-13] MEDS: TRAZODONE 100MG TABLET PO SCH (20:19)
[2021-01-13] MEDS: ARIPIPRAZOLE 10 MG TABLET PO SCH (20:19)
[2021-01-14] MEDS: ALBUTEROL-IPRATROPIUM MDI INH INH SCH ×4 (02:50→20:45)
[2021-01-14 07:04] VITALS: BP 129/78
[2021-01-14] MEDS: FLUTICASONE/VILANTEROL 200-25MCG/INH INH SCH (07:35)
[2021-01-14] MEDS: CHLORPROMAZINE 100MG TAB PO SCH ×2 (08:04→20:52)
[2021-01-14] MEDS: GUAIFENESIN ER 600 MG TABLET PO SCH ×2 (08:05→21:00)
[2021-01-14] MEDS: IBUPROFEN 600 MG TABLET PO PRN ×2 (08:05→16:30)
[2021-01-14] MEDS: CYANOCOBALAMIN 1,000 MCG TABLET PO SCH (08:05)
[2021-01-14] MEDS: LORazepam 1MG TABLET PO PRN (08:09)
[2021-01-14 19:06] VITALS: BP_SYST 106; BP_SYST 99; BP_DIAS 63; BP_DIAS 69
[2021-01-14] MEDS: ARIPIPRAZOLE 10 MG TABLET PO SCH (20:52)
[2021-01-14] MEDS: TRAZODONE 100MG TABLET PO SCH (20:52)
[2021-01-15] MEDS: ALBUTEROL-IPRATROPIUM MDI INH INH SCH ×5 (03:05→20:07)
[2021-01-15] MEDS: FLUTICASONE/VILANTEROL 200-25MCG/INH INH SCH (07:00)
[2021-01-15 07:32] VITALS: BP 108/69
[2021-01-15] MEDS: CYANOCOBALAMIN 1,000 MCG TABLET PO SCH (10:39)
[2021-01-15] MEDS: CHLORPROMAZINE 100MG TAB PO SCH ×2 (10:39→20:46)
[2021-01-15] MEDS: GUAIFENESIN ER 600 MG TABLET PO SCH ×2 (10:39→20:46)
[2021-01-15 19:52] VITALS: BP 110/70
[2021-01-15] MEDS: ARIPIPRAZOLE 10 MG TABLET PO SCH (20:46)
[2021-01-15] MEDS: TRAZODONE 100MG TABLET PO SCH (20:46)
[2021-01-16] MEDS: ALBUTEROL-IPRATROPIUM MDI INH INH SCH ×4 (01:30→20:00)
[2021-01-16 05:52] VITALS: BP 106/70
[2021-01-16] MEDS: CHLORPROMAZINE 100MG TAB PO SCH ×2 (07:51→20:02)
[2021-01-16] MEDS: CYANOCOBALAMIN 1,000 MCG TABLET PO SCH (07:51)
[2021-01-16] MEDS: GUAIFENESIN ER 600 MG TABLET PO SCH ×2 (07:51→20:02)
[2021-01-16] MEDS: FLUTICASONE/VILANTEROL 200-25MCG/INH INH SCH (08:10)
[2021-01-16] MEDS ORDERED: ARIP10TA33 PO (14:07)
[2021-01-16] MEDS ORDERED: GUAI600T31 PO (14:07)
[2021-01-16] MEDS ORDERED: Cyanocobalamin PO (14:07)
[2021-01-16] MEDS ORDERED: TRAZ-175 PO (14:07)
[2021-01-16] MEDS ORDERED: FLUT1BLS INH (14:07)
[2021-01-16] MEDS ORDERED: Albuterol-Ipratropium Mdi INH (14:07)
[2021-01-16] MEDS ORDERED: CHLO100T6 PO (14:07)
[2021-01-16] MEDS: LORazepam 1MG TABLET PO PRN (16:45)
[2021-01-16 19:27] VITALS: BP 110/70
[2021-01-16] MEDS: IBUPROFEN 600 MG TABLET PO PRN (20:02)
[2021-01-16] MEDS: ARIPIPRAZOLE 10 MG TABLET PO SCH (20:02)
[2021-01-16] MEDS: TRAZODONE 100MG TABLET PO SCH (20:02)
[2021-01-17] MEDS: ALBUTEROL-IPRATROPIUM MDI INH INH SCH (02:20)
[2021-01-17 07:38] VITALS: BP 107/67
[2021-01-17] MEDS: CYANOCOBALAMIN 1,000 MCG TABLET PO SCH (08:03)
[2021-01-17] MEDS: GUAIFENESIN ER 600 MG TABLET PO SCH (08:03)
[2021-01-17] MEDS: CHLORPROMAZINE 100MG TAB PO SCH (08:03)
== END 2021-01-17 13:50 | disposition home or self-care (01) | DRG 750 ==
LOC: 3E 01-12 01:31
PROVIDERS: ADMIT Psychiatry & Neurology Psychosomatic Medicine; ATTEND Psychiatry & Neurology Psychosomatic Medicine
DX: F25.0 Schizoaffective disorder, bipolar type (principal); Z59.0 Homelessness; E66.9 Obesity, unspecified; F17.200 Nicotine dependence, unspecified, uncomplicated; G47.00 Insomnia, unspecified; Z79.899 Other long term (current) drug therapy; Z83.6 Family history of other diseases of the respiratory system; Z81.8 Family history of other mental and behavioral disorders; Z68.37 Body mass index [BMI] 37.0-37.9, adult
CPT/HCPCS: 36415; 80048; 80053; 80299; 80307; 80320; 80329; 81003; 82040; 82607; 83036; 84439; 84443; 85025; 87426; 93005; 94640; 99285; G0480; J3420

== ENCOUNTER 2021-02-14 03:46 | Emergency (ER) | payer MEDICAID ==
[~2021-02-14] VITALS: Ht 188 cm; Wt 138.3 kg
[~2021-02-14 03:46] MED LIST changes: +ARIP20TA5 PO; +Albuterol-Ipratropium Mdi INH; +Cyanocobalamin PO; +FLUT1BLS INH; +GUAI600T31 PO; -OLAN10TA69 PO; +OLAN10TA9 PO; +QUET100T PO; -QUET100T2 PO; +QUET300T PO; -QUET300T2 PO
[2021-02-14 03:50] VITALS: BP 166/86
[2021-02-14] MEDS ORDERED: IBUPROFEN 600 MG TABLET ONE (03:54)
[2021-02-14] MEDS ORDERED: IBUPROFEN 200 MG TABLET PO ONE (04:00)
== END 2021-02-14 04:03 ==
LOC: ED 04:00
DX: M54.5 Low back pain (principal); G89.29 Other chronic pain; Z59.0 Homelessness; F17.200 Nicotine dependence, unspecified, uncomplicated; M19.90 Unspecified osteoarthritis, unspecified site
CPT/HCPCS: 99283

== ENCOUNTER 2021-03-04 21:28 | Emergency (ER) | payer MEDICAID ==
[~2021-03-04] VITALS: Ht 190.5 cm; Wt 138.0 kg
[2021-03-04 21:35] VITALS: BP 144/80
--- NOTE | 2021-03-04 22:43 | NUR ---
NIL X 2 2215 BY PA AND 2244 THIS RN
--- NOTE | 2021-03-04 22:49 | NUR ---
NILX 3
== END 2021-03-04 22:52 | disposition left against medical advice (07) ==
LOC: ED 21:45
DX: R06.02 Shortness of breath (principal); R11.0 Nausea; Z53.21 Procedure and treatment not carried out due to patient leaving prior to being seen by health care provider
CPT/HCPCS: 93005; 99283

== ENCOUNTER 2021-04-23 21:50 | Emergency (ER) | payer MEDICAID ==
[~2021-04-23] VITALS: Ht 190.5 cm; Wt 133.0 kg
[~2021-04-23 21:50] MED LIST changes: +OLAN10TA69 PO; -OLAN10TA9 PO
--- NOTE | 2021-04-23 21:57 | NUR ---
RELIEF JEWEL GRINDER: NO SI ROOMS AVAILABLE AT THIS TIME. PT SEATED ON WALL IN DIRECT SIGHT OF NURSES STATION.
[2021-04-23 22:52] LABS: BASOPHILS % (AUTO) 1 % (0-1); EOSINOPHILS % (AUTO) 6 % (1-7); LYMPHOCYTES % (AUTO) 24 % (22-44); MEAN CORPUSCULAR HEMOGLOBIN 30.6 pg (27.5-34.5); MEAN CORPUSCULAR HGB CONC 33.8 g/dL (33.2-36.2); MEAN PLATELET VOLUME 8.9 fL (7.4-10.4); MONOCYTES % (AUTO) 7 % (2-9); NEUTROPHILS % (AUTO) 62 % (42-75); PLATELET COUNT 262 x10^3/uL (130-400); RED BLOOD COUNT 4.82 x10^6/uL (4.38-5.82); RED CELL DISTRIBUTION WIDTH 14.3 % (9.4-14.8)
[2021-04-23 22:53] LABS: ALANINE AMINOTRANSFERASE 28 U/L (12-78); ALBUMIN 3.2 g/dL (3.4-5.0); ANION GAP 5 mmol/L (5-15); CALCIUM 8.6 mg/dL (8.5-10.1); CHLORIDE 108 mmol/L (98-107); CREATININE 0.95 mg/dL (0.7-1.3); SALICYLATE LEVEL 3.4 mg/dL (2.8-20.0)
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
[2021-04-23 23:04] LABS: ALKALINE PHOSPHATASE 108 U/L (45-117); BILIRUBIN,TOTAL 0.2 mg/dL (0.2-1.0); TOTAL PROTEIN 7.2 g/dL (6.4-8.2)
[2021-04-23 23:19] LABS: FREE T4 (FREE THYROXINE) 0.95 ng/dL (0.76-1.46)
[2021-04-23 23:33] LABS: AMPHETAMINE SCREEN, URINE Negative (Negative); BARBITURATE SCREEN, URINE Negative (Negative); BENZODIAZEPINE SCREEN, URINE Negative (Negative); CANNABINOID SCREEN, URINE Negative (Negative); COCAINE SCREEN, URINE Negative (Negative); METHADONE SCREEN, URINE Negative (Negative); OPIATE SCREEN, URINE Negative (Negative)
--- NOTE | 2021-04-24 | NUR ---
PT SUPINE ON GURNEY, RESTING CALMLY WITH EYES CLOSED. NADN. SAFETY PRECAUTIONS IN PLACE, SITTER IN VIEW. AWAITING TELEPSYCH
--- NOTE | 2021-04-24 01:00 | NUR ---
PT SUPINE ON GURNEY, RESTING CALMLY WITH EYES CLOSED. NADN. SAFETY PRECAUTIONS IN PLACE, SITTER IN VIEW. AWAITING TELEPSYCH
[2021-04-24 03:55] VITALS: BP 136/79
--- NOTE | 2021-04-24 04:05 | NUR ---
Patient given discharge instructions and they have confirmed that they understand the instructions. Patient ambulatory with steady gait. NAD, all questions answered appropriately, denies additional needs at this time. No personal belongings left in room after discharge. Pt given resources in town and [facility] options. Taxi voucher upon d/c.
== END 2021-04-24 04:07 | disposition home or self-care (01) ==
LOC: ED 23:00
DX: F28 Other psychotic disorder not due to a substance or known physiological condition (principal); F60.0 Paranoid personality disorder; G43.909 Migraine, unspecified, not intractable, without status migrainosus; F17.210 Nicotine dependence, cigarettes, uncomplicated; M19.90 Unspecified osteoarthritis, unspecified site; F20.9 Schizophrenia, unspecified; F22 Delusional disorders; Z72.9 Problem related to lifestyle, unspecified
CPT/HCPCS: 36415; 80053; 80299; 80307; 80320; 80329; 84439; 84443; 85025; 99406; G0480

== ENCOUNTER 2021-04-29 18:19 | Emergency (ER) | payer MEDICAID ==
[~2021-04-29] VITALS: Ht 190.5 cm; Wt 125.0 kg
[2021-04-29 18:25] VITALS: BP 127/76
--- NOTE | 2021-04-29 18:30 | NUR ---
bELONGINGS, UNDERWEAR, TSHIRT, SHORTS, TENNIS SHOES. TO STORAGE LOCKER
--- NOTE | 2021-04-29 18:31 | NUR ---
Room secured, garage doors down. Sitter in line of site.
--- NOTE | 2021-04-29 18:39 | NUR ---
Sitter in line of site.
--- NOTE | 2021-04-29 18:49 | NUR ---
Report to kenan roca
--- NOTE | 2021-04-29 18:53 | NUR ---
received report from CHEY Alvarez
[2021-04-29 19:09] LABS: BASOPHILS % (AUTO) 1 % (0-1); EOSINOPHILS % (AUTO) 5 % (1-7); LYMPHOCYTES % (AUTO) 20 % (22-44); MEAN CORPUSCULAR HEMOGLOBIN 30.7 pg (27.5-34.5); MEAN CORPUSCULAR HGB CONC 34.1 g/dL (33.2-36.2); MEAN PLATELET VOLUME 9.1 fL (7.4-10.4); MONOCYTES % (AUTO) 9 % (2-9); NEUTROPHILS % (AUTO) 65 % (42-75); PLATELET COUNT 241 x10^3/uL (130-400); RED BLOOD COUNT 4.52 x10^6/uL (4.38-5.82); RED CELL DISTRIBUTION WIDTH 14.4 % (9.4-14.8)
[2021-04-29 19:19] LABS: ANION GAP 6 mmol/L (5-15); CALCIUM 8.2 mg/dL (8.5-10.1); CHLORIDE 107 mmol/L (98-107); CREATININE 0.94 mg/dL (0.7-1.3); SALICYLATE LEVEL 3.4 mg/dL (2.8-20.0)
--- NOTE | 2021-04-29 19:53 | NUR ---
PT PROVIDED UA SAMPLE, UA SENT TO LAB PT RESTING ON HAN, DENIES NEEDS AT THIS TIME, SITTER AT BEDSIDE, ROOM SECURED
[2021-04-29 20:21] LABS: AMPHETAMINE SCREEN, URINE Negative (Negative); BARBITURATE SCREEN, URINE Negative (Negative); BENZODIAZEPINE SCREEN, URINE Negative (Negative); CANNABINOID SCREEN, URINE Negative (Negative); COCAINE SCREEN, URINE Negative (Negative); METHADONE SCREEN, URINE Negative (Negative); OPIATE SCREEN, URINE Negative (Negative)
--- NOTE | 2021-04-29 20:36 | NUR ---
pt resting on gureny, denies needs at this time, sitter at bedside, room secured.
--- NOTE | 2021-04-29 21:00 | NUR ---
pt resting on gurney, denies needs at this time, sitter at bedside, room secured.
--- NOTE | 2021-04-29 22:01 | NUR ---
pt resting on gurney, denies needs at this time, sitter at bedside, room secured.
--- NOTE | 2021-04-29 22:55 | NUR ---
selam from [facility] reviewing pt's chart
--- NOTE | 2021-04-29 23:23 | NUR ---
ACCEPTED BY [facility] ON U PENDING NEGATIVE COVID.
--- NOTE | 2021-04-29 23:24 | NUR ---
pt swabbed for COVID and swab sent to lab
--- NOTE | 2021-04-30 00:55 | NUR ---
Pt to be admitted to [facility], room 391. Report called to CHEY Vasquez.
== END 2021-04-30 01:09 ==
LOC: ED 20:37
DX: R45.851 Suicidal ideations (principal); Z20.822 Contact with and (suspected) exposure to COVID-19; F32.3 Major depressive disorder, single episode, severe with psychotic features
CPT/HCPCS: 36415; 80048; 80299; 80307; 80320; 80329; 82040; 85025; 87426; 99285; G0480

== ENCOUNTER 2021-04-29 23:38 | Inpatient (IN) | payer MEDICAID ==
[~2021-04-29] VITALS: Ht 190.5 cm; Wt 131.6 kg
[2021-04-30] MEDS ORDERED: BISACODYL 10 MG SUPP PR PRN (01:00)
[2021-04-30] MEDS ORDERED: ONDANSETRON ODT 4 MG PO PRN (01:00)
[2021-04-30] MEDS ORDERED: POLYETHYLENE GLYCOL 17 GM PACKET PO PRN (01:00)
[2021-04-30] MEDS ORDERED: DOCUSATE 100 MG CAPSULE PO PRN (01:00)
[2021-04-30 01:45] VITALS: BP 123/92
[2021-04-30 01:48] LABS: MICROSCOPIC NOT IND
[2021-04-30] MEDS: TRAZODONE 100MG TABLET PO SCH ×2 (01:51→20:24)
[2021-04-30] MEDS ORDERED: PLEASE ENTER HEIGHT AND WEIGHT MC SCH (02:00)
[2021-04-30 06:12] LABS: ALANINE AMINOTRANSFERASE 28 U/L (12-78); ALBUMIN 2.8 g/dL (3.4-5.0); CHOLESTEROL, TOTAL 160 mg/dL (140-239); TRIGLYCERIDES 221 mg/dL (50-200); VLDL CHOLESTEROL 44 mg/dL (0-25)
[2021-04-30 06:37] LABS: ALKALINE PHOSPHATASE 89 U/L (45-117); BILIRUBIN,TOTAL 0.4 mg/dL (0.2-1.0); CHOL/HDL RATIO 4.8; FREE T4 (FREE THYROXINE) 0.85 ng/dL (0.76-1.46); HDL CHOL % 21 % (26-37); HDL CHOLESTEROL (DIRECT) 33 mg/dL (40-60); LDL CHOLESTEROL,CALCULATED 83 mg/dL (54-169); LDL/HDL RATIO 2.5 (0.5-3.0); TOTAL PROTEIN 6.4 g/dL (6.4-8.2)
[2021-04-30 06:38] LABS: BILIRUBIN, DIRECT < 0.1 mg/dL (0.1-0.2); BILIRUBIN,INDIRECT 0.3 mg/dL (0.0-2.0)
[2021-04-30 07:29] VITALS: BP 129/76
[2021-04-30] MEDS ORDERED: IBUPROFEN 600 MG TABLET ONE (09:30)
[2021-04-30] MEDS: IBUPROFEN 600 MG TABLET PO PRN (09:39)
[2021-04-30] MEDS: LORazepam 1MG TABLET PO PRN (11:54)
[2021-04-30 19:34] VITALS: BP 116/65
[2021-04-30] MEDS ORDERED: TRAZODONE 100MG TABLET PO SCH (21:00)
[2021-05-01] MEDS: IBUPROFEN 600 MG TABLET PO PRN ×3 (06:33→20:33)
[2021-05-01] MEDS: LORazepam 1MG TABLET PO PRN ×3 (06:33→20:33)
[2021-05-01 07:22] VITALS: BP 115/71
[2021-05-01] MEDS: ACETAMINOPHEN 325 MG TABLET PO PRN (12:47)
[2021-05-01 19:39] VITALS: BP 120/75
[2021-05-01] MEDS: TRAZODONE 100MG TABLET PO SCH (20:34)
[2021-05-02 07:53] VITALS: BP 126/81
[2021-05-02] MEDS: LORazepam 1MG TABLET PO PRN ×2 (09:44→18:42)
[2021-05-02] MEDS: IBUPROFEN 600 MG TABLET PO PRN ×2 (09:44→19:53)
[2021-05-02] MEDS: ACETAMINOPHEN 325 MG TABLET PO PRN (11:29)
[2021-05-02] MEDS ORDERED: TRAZODONE 50MG TABLET PO ONE (11:30)
[2021-05-02 19:36] VITALS: BP 132/75
[2021-05-02] MEDS: TRAZODONE 100MG TABLET PO SCH (19:53)
[2021-05-03 07:30] VITALS: BP 123/82
[2021-05-03] MEDS: LORazepam 1MG TABLET PO PRN ×2 (08:40→18:29)
[2021-05-03] MEDS: ACETAMINOPHEN 325 MG TABLET PO PRN (08:41)
[2021-05-03] MEDS ORDERED: TRAZODONE 50MG TABLET ONE (15:00)
[2021-05-03] MEDS: IBUPROFEN 600 MG TABLET PO PRN ×2 (15:03→19:49)
[2021-05-03] MEDS ORDERED: TRAZODONE 50MG TABLET PO ONE (16:00)
[2021-05-03 19:34] VITALS: BP 131/78
[2021-05-03] MEDS: TRAZODONE 100MG TABLET PO SCH (19:49)
[2021-05-04 07:41] VITALS: BP 109/73
[2021-05-04] MEDS: LORazepam 1MG TABLET PO PRN (08:17)
== END 2021-05-04 10:40 | disposition home or self-care (01) | DRG 885 ==
LOC: 3E 04-30 01:32
PROVIDERS: ADMIT Psychiatry & Neurology Psychosomatic Medicine; ATTEND Psychiatry & Neurology Psychosomatic Medicine
DX: F25.0 Schizoaffective disorder, bipolar type (principal); R45.851 Suicidal ideations; Z88.8 Allergy status to other drugs, medicaments and biological substances; F15.21 Other stimulant dependence, in remission; E53.8 Deficiency of other specified B group vitamins; E66.9 Obesity, unspecified; F17.200 Nicotine dependence, unspecified, uncomplicated; G47.00 Insomnia, unspecified; I10 Essential (primary) hypertension; Z79.899 Other long term (current) drug therapy; Z68.36 Body mass index [BMI] 36.0-36.9, adult
CPT/HCPCS: 36415; 71045; 80048; 80061; 80076; 80299; 80307; 80320; 80329; 81003; 82040; 82607; 84439; 84443; 85025; 87426; 93005; 99285; G0480; Q0161

== ENCOUNTER 2021-06-02 23:18 | Emergency (ER) | payer MEDICAID ==
[~2021-06-02] VITALS: Ht 190.5 cm; Wt 138.0 kg
--- NOTE | 2021-06-02 23:57 | NUR ---
GIFT SHOP ASSISTANT: PT. TO ROOM FROM WALL WITH ERIN AT THIS TIME.
--- NOTE | 2021-06-03 00:01 | NUR ---
TASK RN: PT BIBLuis C/O AUDITORY HALLUCINATIONS. "THEY ARE THERE ALL THE TIME, THEY ARE TELLING ME TO HURT MYSELF, HURT OTHER PEOPLE, BE HOMOSEXUAL, BE BISEXUAL. ALL THE THINGS. THEY HAVE EVEN BEEN IN MY SLEEP." PT CHANGED INTO GOWN, ALL BELONGINGS REMOVED FROM ROOM (X2 BAGS, ONE LARGE BACKPACK AND ONE PT BELONGING BAG). ROOM SECURED, SAFETY CAMPOS DOWN. PT PROVIDED URINAL FOR URINE SAMPLE. PT ALSO PROVIDED WARM BLANKETS, WATER AND JUICE AT THIS TIME. REPORT GIVEN TO PRIMARY RN. AWAITING ERP
[2021-06-03] MEDS ORDERED: LORazepam 1MG TABLET PO ONE (00:30)
[2021-06-03] MEDS ORDERED: LORazepam 1MG TABLET ONE (00:39)
[2021-06-03 00:45] LABS: BASOPHILS % (AUTO) 1 % (0-1); EOSINOPHILS % (AUTO) 4 % (1-7); LYMPHOCYTES % (AUTO) 23 % (22-44); MEAN CORPUSCULAR HEMOGLOBIN 30.8 pg (27.5-34.5); MEAN CORPUSCULAR HGB CONC 34.1 g/dL (33.2-36.2); MEAN PLATELET VOLUME 8.8 fL (7.4-10.4); MONOCYTES % (AUTO) 11 % (2-9); NEUTROPHILS % (AUTO) 61 % (42-75); PLATELET COUNT 235 x10^3/uL (130-400); RED BLOOD COUNT 4.64 x10^6/uL (4.38-5.82); RED CELL DISTRIBUTION WIDTH 15.3 % (9.4-14.8)
[2021-06-03 00:55] LABS: ALBUMIN 2.9 g/dL (3.4-5.0); ANION GAP 4 mmol/L (5-15); CALCIUM 8.1 mg/dL (8.5-10.1); CHLORIDE 109 mmol/L (98-107)
[2021-06-03 01:00] LABS: ALANINE AMINOTRANSFERASE 27 U/L (12-78); ALKALINE PHOSPHATASE 112 U/L (45-117); BILIRUBIN,TOTAL 0.2 mg/dL (0.2-1.0); CREATININE 0.99 mg/dL (0.7-1.3); TOTAL PROTEIN 7.1 g/dL (6.4-8.2)
[2021-06-03 01:18] LABS: SALICYLATE LEVEL < 1.7 mg/dL (2.8-20.0)
[2021-06-03 01:30] LABS: AMPHETAMINE SCREEN, URINE Negative (Negative); BARBITURATE SCREEN, URINE Negative (Negative); BENZODIAZEPINE SCREEN, URINE Negative (Negative); CANNABINOID SCREEN, URINE Negative (Negative); COCAINE SCREEN, URINE Negative (Negative); METHADONE SCREEN, URINE Negative (Negative); OPIATE SCREEN, URINE Negative (Negative)
--- NOTE | 2021-06-03 02:03 | NUR ---
REPORT FROM JOEY, PT MOVED TO ROOM 3, PT CALM AND COOPERATIVE AMBULATED WITHOUT DIFFICULTY
--- NOTE | 2021-06-03 02:45 | NUR ---
PT RESTING ON GURNEY RESP EVEN AND UNLABORED MARTINEZ SITTER IN SIGHT
--- NOTE | 2021-06-03 03:45 | NUR ---
PT RESTING ON GURNEY RESP EVEN AND UNLABORED MARTINEZ SITTER IN SIGHT
--- NOTE | 2021-06-03 04:32 | NUR ---
packet faxed to [facility].
--- NOTE | 2021-06-03 04:46 | NUR ---
PT RESTING ON GURNEY RESP EVEN AND UNLABORED MARTINEZ SITTER IN SIGHT
--- NOTE | 2021-06-03 05:24 | NUR ---
Janine Called from [facility] stating they have no beds at this time.
--- NOTE | 2021-06-03 05:45 | NUR ---
PT RESTING ON GURNEY RESP EVEN AND UNLABORED MARTINEZ SITTER IN SIGHT
--- NOTE | 2021-06-03 06:41 | NUR ---
PT RESTING ON GURNEY RESP EVEN AND UNLABORED MARTINEZ SITTER IN SIGHT
--- NOTE | 2021-06-03 06:45 | NUR ---
[facility] called [facility] no beds available and cannot verify pt insurance
--- NOTE | 2021-06-03 06:47 | NUR ---
REPORT FROM CHEY VELASQUEZ AT THIS TIME. PT REST[facility] IN [facility], SITTER IN DIRECT LINE OF SIGHT.
--- NOTE | 2021-06-03 07:24 | NUR ---
REPORT GIVEN TO BRET AT [facility]. DR. NERI WILL BE ACCEPTING. PER BRET THEY WILL BE READY FOR HIM AT 0930.
[2021-06-03 07:49] VITALS: BP 135/74
--- NOTE | 2021-06-03 07:57 | NUR ---
THROUGHPUT RN NOTE: [facility] CALLED TO NOTIFY THAT THEY ARE NOT ABLE TO ACCEPT THE PATIENT THEY ARE NOT CONTRACTED WITH THIS PATIENT'S INSURANCE.
--- NOTE | 2021-06-03 08:30 | NUR ---
PT RESTING IN [facility], MEAL TRAY PROVIDED. PT STATES HE HAS NO SI/HI AT THIS TIME AND "I FEEL MUCH BETTER".
--- NOTE | 2021-06-03 09:49 | NUR ---
THROUGHPUT RN NOTE: IT WAS DETERMINED THAT INCORRECT INSURANCE INFORMATION WAS FAXXED TO PSYCHIATRIC LOCATIONS BY PREVIOUS THROUGHPUT STAFF. CORRECT INSURANCE INFORMATION RE-FAXXED TO [facility], [facility], [facility], [facility] AND [facility]. FAX CONFIRMATION RECEIPT RECEIVED.
--- NOTE | 2021-06-03 10:03 | NUR ---
PT CURRENTLY REPORTING THAT HE IS NO LONGER HEARING VOICES AND FEELS LIKE HE IS READY TO GO HOME. EDMD AWARE AND WILL RECHECK PT.
--- NOTE | 2021-06-03 10:37 | NUR ---
DISCHARGE INSTRUCTIONS AND EDUCATION GIVEN TO PT. PT VERBALIZED UNDERSTANDING. PT STATES HE IS GOING TO TAKE A TAXI TO A [employer] AND GO GET [employer] FOOD. PT VERBALIZED UNDERSTANDING OF IMPORTANCE OF TAKING HIS CURRENT MEDICATIONS PRESCRIBED AND COMING BACK TO ED IF HE STARTS TO HAVE HALLUCINATIONS OR SI/HI. PT AMBULATED TO DISCHARGE DESK STEADILY.
== END 2021-06-03 10:40 | disposition home or self-care (01) ==
LOC: ED 06-03 01:38 → UNDOADMOB 06-03 01:44 → EDIP 06-03 01:44 → ED 06-03 10:40
DX: R45.851 Suicidal ideations (principal); F33.3 Major depressive disorder, recurrent, severe with psychotic symptoms; G89.29 Other chronic pain; M19.90 Unspecified osteoarthritis, unspecified site; F17.200 Nicotine dependence, unspecified, uncomplicated
CPT/HCPCS: 36415; 80053; 80299; 80307; 80320; 80329; 85025; 99285; G0480